=== PATIENT | male | born 1960 | race Caucasian/White ===

== ENCOUNTER → 2020-05-02 | Outpatient (CLI) | payer BC ==
--- NOTE | 2020-05-02 16:06 | CT ---
EXAMINATION TYPE: CT abdomen pelvis wo con DATE OF EXAM: 05/02/2020 COMPARISON: None HISTORY: 59-year-old male gross hematuria, kidney stones. R31.0, N20.0 Right lower quadrant pain that has since resolved. Hematuria that has also resolved. CT DLP: 1688 mGycm. Automated exposure control for dose reduction was used. TECHNIQUE: Contiguous axial scanning of the abdomen and pelvis without IV contrast. Coronal and sagit sonia reconstructions performed. FINDINGS: Heart normal size without pericardial effusion. Strandy atelectasis particularly at the left base. No pleural effusion. Noncontrast appearance of the liver, gallbladder, adrenal glands, kidneys, spleen, pancreas show no g ross abnormality. However, there is a 6 mm calcification in the right side of the pelvis that seems to correspond to th e distal right ureter. No dilated small bowel, free fluid, or free air. No mesenteric or retroperitoneal lymphadenopathy. Mild stool burden. No pericolonic inflammatory change. Mild diverticular change at the junction of th e descending and sigmoid colon. No pericolonic inflammatory change. Bladder partially distended. Prostate gland measures 4.9 cm wide. No abnormal fluid collection in the pelvis or pelvic lymphadenopathy. Bones: Mild degenerative changes at the hips. Moderate degenerative disc disease L5-S1 particularly t owards the left secondary to a levoconvex scoliosis centered along the mid lumbar spine. Bone island involving the L2 vertebral body. Facet arthropathy lower lumbar spine. IMPRESSION: 1. A 6 mm distal right ureteral calculus but without any appreciable hydronephrosis to suggest obstr uctive uropathy. Clinically correlate. 2. Mild distal diverticulosis without acute diverticulitis. 3. Prostatomegaly at 4.9 cm wide. 4. Levoconvex scoliosis along the mid lumbar spine.
== END | disposition home or self-care (01) ==
LOC: RADCTMAIN 15:25
PROVIDERS: ATTEND Family Medicine
DX: N20.0 Calculus of kidney (principal); K57.90 Diverticulosis of intestine, part unspecified, without perforation or abscess without bleeding; N40.0 Benign prostatic hyperplasia without lower urinary tract symptoms
CPT/HCPCS: 74176

== ENCOUNTER 2020-06-04 09:41 | Day surgery (SDC) | payer BC ==
[2020-05-30 15:54] VITALS: BMI 30.8
[~2020-06-04 09:41] MED LIST: LACTATED RINGERS 1,000 ML IV SCH
[2020-06-04] MEDS ORDERED: LACTATED RINGERS 1,000 ML IV ONE (09:53)
[2020-06-04] MEDS ORDERED: LIDOCAINE 1% (10MG/ML) FOR IV START INTRADERMA ONE (09:53)
[2020-06-04 10:08] VITALS: TEMP 98.1
[2020-06-04 10:08] LABS: Glucose,Whole Blood 97 mg/dL (75-99)
[2020-06-04] MEDS ORDERED: PROPOFOL 10 MG/ML 20 ML VIAL IV ONE (11:01)
[2020-06-04] MEDS ORDERED: LIDOCAINE 1% INJ 10MG/ML (20 ML MDV) ONE (11:01)
--- NOTE | 2020-06-04 11:20 | P.PCN ---
Date of Procedure: 06/04/20 Procedure(s) Performed: BRIEF HISTORY: Patient is a 59-year-old [id number] scheduled for an elective colonoscopy as a part of screening for colorectal neoplasia. of PROCEDURE PERFORMED: Colonoscopy. PREOPERATIVE DIAGNOSIS: Screening for colon cancer. IV sedation per Anesthesia. PROCEDURE: After informed consent was obtained, the patient, was brought into the endoscopy unit. IV sedation was administered by Anesthesia under continuous monitoring. Digital rectal examination was normal. Initially the Olympus CF-160 flexible video colonoscope was then inserted in the rectum, gradually advanced into the cecum without any difficulty. Careful examination was performed as the scope was gradually being withdrawn. Ileocecal valve and the appendiceal orifice were visualized and appeared normal. Prep was excellent. Mucosa of the cecum, ascending colon, transverse colon, descending colon, sigmoid colon, and rectum appeared normal. Scattered sigmoid diverticulosis. Retroflexion was performed in the rectum and no lesions were seen. The patient tolerated the procedure well. IMPRESSION: Normal-appearing colon from rectum to cecum with no evidence of colorectal neoplasia Scattered sigmoid diverticulosis. RECOMMENDATIONS: Findings of this examination were discussed with the patient as well as his family. She was advised to have a repeat screening colonoscopy in 10 years.
[2020-06-04 11:49] VITALS: RESP 16
[2020-06-04 11:51] VITALS: BP 118/77; PULSE 68
== END 2020-06-04 12:20 | disposition home or self-care (01) ==
LOC: ORWHC2ENDO 09:41
PROVIDERS: ATTEND Internal Medicine Gastroenterology
DX: Z12.11 Encounter for screening for malignant neoplasm of colon (principal); K57.30 Diverticulosis of large intestine without perforation or abscess without bleeding
CPT/HCPCS: G0121; J2001; J2704; 45378

== ENCOUNTER 2021-09-21 20:04 | Inpatient (IN) | payer BC ==
[2021-09-21] MEDS ORDERED: IPRATROPIUM-ALBUTEROL 3 ML NEB INHALATION STA (21:50)
[2021-09-21] MEDS ORDERED: methylPREDNISolone SOD SUCCI 125 MG/2 ML VIAL IV STA (21:52)
[2021-09-21] MEDS ORDERED: SODIUM CHLORIDE 0.9% 500 ML 500 ML IV STA (21:56)
--- NOTE | 2021-09-21 21:56 | ED ---
General Adult HPI - General Chief complaint: Shortness of Breath Stated complaint: COVID +, SOB Time Seen by Provider: 09/21/21 21:41 Source: patient, family, RN notes reviewed, old records reviewed Mode of arrival: ambulatory Limitations: no limitations - History of Present Illness Initial comments: This is a well-appearing 61-year-old male patient presents to the emergency room with shortness of breath, cough, fever and body aches. He states that the symptoms started on Tuesday, he tested positive for Covid on the . He states that he has been progressively getting worse and they've been monitoring his oxygen saturation at home and it has been in the 80s. He did get the vaccine on September 07. -: days(s) (6) Location: chest Severity scale (1-10): 5 Quality: other (tight) Consistency: constant Improves with: none Worsens with: none Associated Symptoms: cough, fever/chills, shortness of breath, other (body aches) Treatments Prior to Arrival: NSAID, other (tylenol) - Related Data Home Medications Medication Instructions Recorded Confirmed No Known Home Medications 05/30/20 05/30/20 Allergies Allergy/AdvReac Type Severity Reaction Status Date / Time No Known Allergies Allergy Verified 05/30/20 15:29 Review of Systems ROS Statement: Those systems with pertinent positive or pertinent negative responses have been documented in the HPI. ROS Other: All systems not noted in ROS Statement are negative. Past Medical History Additional Past Medical History / Comment(s): herniated discs, kidney stones, ? sleep apnea , states dr monitoring for diabetes. History of Any Multi-Drug Resistant Organisms: None Reported Past Surgical History: Appendectomy Additional Past Surgical History / Comment(s): left ear tube (1999) Past Anesthesia/Blood Transfusion Reactions: No Reported Reaction Past Psychological History: No Psychological Hx Reported Smoking Status: Former smoker Past Alcohol Use History: Occasional Past Drug Use History: None Reported - Past Family History Mother Family Medical History: Cancer Additional Family Medical History / Comment(s): ?lung cancer with mets General Exam Limitations: no limitations General appearance: alert, in no apparent distress Head exam: Present: atraumatic, normocephalic, normal inspection Eye exam: Present: normal appearance, PERRL, EOMI. Absent: scleral icterus, conjunctival injection, periorbital swelling ENT exam: Present: normal exam, normal oropharynx, mucous membranes moist Neck exam: Present: normal inspection, full ROM. Absent: tenderness, meningismus, lymphadenopathy, thyromegaly Respiratory exam: Present: wheezes, rales. Absent: respiratory distress, stridor, chest wall tenderness, accessory muscle use, decreased breath sounds Cardiovascular Exam: Present: tachycardia, normal heart sounds. Absent: JVD GI/Abdominal exam: Present: soft, normal bowel sounds. Absent: distended, tenderness, guarding, rebound, rigid Back exam: Present: full ROM. Absent: tenderness, CVA tenderness (R), CVA tenderness (L) Neurological exam: Present: alert, oriented X3, normal gait Psychiatric exam: Present: normal affect, normal mood Skin exam: Present: warm, dry, intact, normal color. Absent: rash, cyanosis, diaphoretic, petechiae, pallor Course Vital Signs 09/21/21 09/21/21 09/21/21 21:26 21:55 21:57 Temperature 100.5 F H Pulse Rate 105 H 99 Respiratory 22 18 18 Rate Blood Pressure 126/76 135/84 O2 Sat by Pulse 89 L 86 L Oximetry Medical Decision Making - Medical Decision Making This is a 61-year-old male patient presents to the emergency room with shortness of breath cough and fevers with body aches that started on Tuesday. He tested positive for Covid on . He did get a vaccine on September 07. His states that she has been monitoring his oxygen saturations at home and it is been in the 80s. Today he stated it was significantly worse so she brought him to the emergency room. Patient states that he was a smoker for 25 years and quit in 2007. He has no other medical history does not take any medicine on a daily basis. Chest x-ray shows patchy bilateral interstitial pneumonia consistent with coronavirus. There is no evidence of leukocytosis. His troponin is negative at 0.012, EKG shows sinus rhythm with no ST elevation. Patient was given monoclonal antibody infusion. He was also given SoluMedrol and a DuoNeb treatment. He was placed on nasal cannula oxygen at 3 L and his oxygen saturation is increased to 90-93% His d-dimer is elevated at 5.39 and a CTA chest was ordered. His sodium is 130. Patient will be admitted to the hospital for hypoxia, elevated d-dimer, coronavirus. I did speak with Karin Tobar regarding admission. Case discussed with Dr. Sarah and patient will be started on Lovenox 1 mg/kg and Decadron. - Lab Data Result diagrams: 09/21/21 22:30 09/21/21 22:30 Lab Results 09/21/21 09/21/21 09/21/21 Range/Units 22:30 22:30 22:30 WBC 6.6 (3.8-10.6) k/uL RBC 5.04 (4.30-5.90) m/uL Hgb 15.4 (13.0-17.5) gm/dL Hct 45.4 (39.0-53.0) % MCV 90.0 (80.0-100.0) fL MCH 30.6 (25.0-35.0) pg MCHC 34.0 (31.0-37.0) g/dL RDW 12.7 (11.5-15.5) % Plt Count 133 L (150-450) k/uL MPV 8.2 Neutrophils % 88 % Lymphocytes % 7 % Monocytes % 3 % Eosinophils % 0 % Basophils % 0 % Neutrophils # 5.8 (1.3-7.7) k/uL Lymphocytes # 0.5 L (1.0-4.8) k/uL Monocytes # 0.2 (0-1.0) k/uL Eosinophils # 0.0 (0-0.7) k/uL Basophils # 0.0 (0-0.2) k/uL PT 9.7 (9.0-12.0) sec INR 0.9 (<1.2) APTT 27.3 (22.0-30.0) sec D-Dimer 5.39 H (<0.60) mg/L FEU Sodium 130 L (137-145) mmol/L Potassium 4.0 (3.5-5.1) mmol/L Chloride 98 (98-107) mmol/L Carbon Dioxide 26 (22-30) mmol/L Anion Gap 6 mmol/L BUN 16 (9-20) mg/dL Creatinine 0.74 (0.66-1.25) mg/dL Est GFR (CKD-EPI)AfAm >90 (>60 ml/min/1.73 sqM) Est GFR (CKD-EPI)NonAf >90 (>60 ml/min/1.73 sqM) Glucose 162 H (74-99) mg/dL Plasma Lactic Acid Jose Luis (0.7-2.0) mmol/L Calcium 9.1 (8.4-10.2) mg/dL Magnesium 1.8 (1.6-2.3) mg/dL Total Bilirubin 0.4 (0.2-1.3) mg/dL AST 72 H (17-59) U/L ALT 45 (4-49) U/L Alkaline Phosphatase 67 (38-126) U/L Troponin I (0.000-0.034) ng/mL Total Protein 5.8 L (6.3-8.2) g/dL Albumin 3.1 L (3.5-5.0) g/dL 09/21/21 09/21/21 Range/Units 22:30 22:30 WBC (3.8-10.6) k/uL RBC (4.30-5.90) m/uL Hgb (13.0-17.5) gm/dL Hct (39.0-53.0) % MCV (80.0-100.0) fL MCH (25.0-35.0) pg MCHC (31.0-37.0) g/dL RDW (11.5-15.5) % Plt Count (150-450) k/uL MPV Neutrophils % % Lymphocytes % % Monocytes % % Eosinophils % % Basophils % % Neutrophils # (1.3-7.7) k/uL Lymphocytes # (1.0-4.8) k/uL Monocytes # (0-1.0) k/uL Eosinophils # (0-0.7) k/uL Basophils # (0-0.2) k/uL PT (9.0-12.0) sec INR (<1.2) APTT (22.0-30.0) sec D-Dimer (<0.60) mg/L FEU Sodium (137-145) mmol/L Potassium (3.5-5.1) mmol/L Chloride (98-107) mmol/L Carbon Dioxide (22-30) mmol/L Anion Gap mmol/L BUN (9-20) mg/dL Creatinine (0.66-1.25) mg/dL Est GFR (CKD-EPI)AfAm (>60 ml/min/1.73 sqM) Est GFR (CKD-EPI)NonAf (>60 ml/min/1.73 sqM) Glucose (74-99) mg/dL Plasma Lactic Acid Jose Luis 1.2 (0.7-2.0) mmol/L Calcium (8.4-10.2) mg/dL Magnesium (1.6-2.3) mg/dL Total Bilirubin (0.2-1.3) mg/dL AST (17-59) U/L ALT (4-49) U/L Alkaline Phosphatase (38-126) U/L Troponin I <0.012 (0.000-0.034) ng/mL Total Protein (6.3-8.2) g/dL Albumin (3.5-5.0) g/dL Disposition Clinical Impression: Hypoxia, COVID-19, Elevated d-dimer Disposition: ADMITTED IP TO THIS HOSP Condition: Fair Referrals: Jacy Farah III, MD [Primary Care Provider] - 1-2 days Decision Date: 09/22/21 Decision Time: 00:36
[2021-09-21] MEDS ORDERED: SODIUM CHLORIDE 0.9% 50 ML IVPB ONE (22:00)
--- NOTE | 2021-09-21 22:00 | XR ---
EXAMINATION TYPE: XR chest 2V DATE OF EXAM: 09/21/2021 COMPARISON: NONE HISTORY: Pneumonia TECHNIQUE: 2 views FINDINGS: There is coarse interstitial infiltrate in both lungs. There is some mild atelectasis at th e lung bases. Heart size is normal. Mediastinum is normal. Bony thorax is intact. IMPRESSION: Patchy bilateral interstitial pneumonia.
[2021-09-21] MEDS ORDERED: BAMLANIVIMAB (EUA) 700 MG, ETESEVIMAB (EUA) 1,400 MG in SODIUM CHLORIDE 0.9% 50 ML IVPB ONE (22:30)
[2021-09-21 23:03] LABS: Basophils % (A) 0 %; Eosinophils % (A) 0 %; HCT 45.4 % (39.0-53.0); HGB 15.4 gm/dL (13.0-17.5); Lymphocytes # (A) 0.5 k/uL (1.0-4.8); Lymphocytes % (A) 7 %; MCH 30.6 pg (25.0-35.0); Mean Platelet Volume 8.2; Monocytes # (A) 0.2 k/uL (0-1.0); Monocytes % (A) 3 %; Neutrophils # (A) 5.8 k/uL (1.3-7.7); Neutrophils % (A) 88 %; Platelet Count 133 k/uL (150-450); RBC 5.04 m/uL (4.30-5.90); RDW 12.7 % (11.5-15.5); WBC 6.6 k/uL (3.8-10.6)
[2021-09-21 23:12] LABS: ALT 45 U/L (4-49); AST 72 U/L (17-59); African American GFR (CKD) >90 (>60 ml/min/1.73 sqM); Albumin 3.1 g/dL (3.5-5.0); Alkaline Phosphatase 67 U/L (38-126); Anion Gap 6 mmol/L; Blood Urea Nitrogen 16 mg/dL (9-20); Calcium 9.1 mg/dL (8.4-10.2); Carbon Dioxide 26 mmol/L (22-30); Chloride 98 mmol/L (98-107); Glucose 162 mg/dL (74-99); Magnesium 1.8 mg/dL (1.6-2.3); Non-African American GFR(CKD) >90 (>60 ml/min/1.73 sqM); Sodium 130 mmol/L (137-145); Total Bilirubin 0.4 mg/dL (0.2-1.3); Total Protein 5.8 g/dL (6.3-8.2)
[2021-09-21 23:23] LABS: INR 0.9 (<1.2); Partial Thromboplastin Time 27.3 sec (22.0-30.0); Prothrombin Time 9.7 sec (9.0-12.0)
[2021-09-21] MEDS ORDERED: ALBUTEROL HFA INHALER INHALATION STA (23:51)
[2021-09-22] MEDS ORDERED: ACETAMINOPHEN TAB 325 MG TAB PO PRN (00:37)
[2021-09-22] MEDS ORDERED: NALOXONE 0.4 MG/ML 1 ML VIAL IV PRN (00:37)
--- NOTE | 2021-09-22 00:51 | CT ---
EXAMINATION TYPE: CT angio chest DATE OF EXAM: 09/22/2021 COMPARISON: None HISTORY: pE CT DLP: 788.2 mGycm Automated exposure control for dose reduction was used. CONTRAST: Performed with IV Contrast, patient injected with 80 mL of Isovue 370. Images obtained from the thoracic inlet to the diaphragm with IV contrast. There are 3-D post process ed images. There is extensive peripheral bilateral groundglass pulmonary interstitial infiltrates. There is no p leural effusion. Heart is top normal in size. There is no pericardial effusion. There is normal contrast opacification of the pulmonary arteries. There are no filling defects. There is some fatty infiltration of the liver. There are no hilar masses. There is paratracheal lymph nodes up to 1 cm. There are multiple bronchial lymph nodes up to 1 cm. Thoracic aorta is intact. There is no aneurysm or dissection. There is intact thoracic spine. There is no compression fracture. The sternum is intact. There is mil d thoracic dextroscoliosis. IMPRESSION: No evidence of pulmonary embolism. bilateral interstitial and airspace pneumonia. Mediastinal and br onchial lymph nodes consistent with inflammatory disease.
[2021-09-22] MEDS: ENOXAPARIN 120 MG/0.8 ML SYRINGE SQ SCH ×2 (00:58→14:15)
[2021-09-22] MEDS ORDERED: ENOXAPARIN 120 MG/0.8 ML SYRINGE SQ SCH (01:00)
[2021-09-22] MEDS: DEXAMETHASONE SOD PHOSPHATE 10 MG/ML 1 ML VIAL IVP SCH ×2 (09:58→22:32)
[2021-09-22] MEDS ORDERED: CALCIUM CARBONATE 500 MG CHEWABLE PO PRN (10:21)
[2021-09-22] MEDS ORDERED: ONDANSETRON 4 MG/2 ML VIAL IVP PRN (10:21)
[2021-09-22] MEDS: CHOLECALCIFEROL 25 MCG (1000 IU) TABLET PO SCH (10:37)
[2021-09-22] MEDS: ZINC SULFATE 220 MG CAP PO SCH (10:37)
[2021-09-22] MEDS: ASCORBIC ACID 500 MG TAB PO SCH (10:37)
[2021-09-22 11:36] LABS: C Reactive Protein 21.3 mg/dL (<1.0)
[2021-09-22 12:55] LABS: Glucose,Whole Blood 174 mg/dL (75-99)
[2021-09-22] MEDS: INSULIN ASPART (NovoLOG) 100 UNIT/ML VIAL SQ SCH ×3 (12:58→22:33)
[2021-09-22] MEDS ORDERED: ALBUTEROL HFA INHALER INHALATION PRN (13:59)
--- NOTE | 2021-09-22 14:04 | P.HPIM ---
History of Present Illness H&P Date: 09/22/21 This is a pleasant 61-year-old male who follows with Dr. Farah. He presents to the after having symptoms of shortness of breath, cough, fever, body aches and chills since last Tuesday. He has been getting significantly worse since, and became hypoxic with a pulse ox in the 80s on room air at home. He tested positive for COVID on the 09/17/21. Patient did receive his first dose of Moderna vaccination on September 07. Patient and at the bedside denying any other positive Covid in the family. Patient's past medical history significant for hernia disc, kidney stones, questionable sleep apnea, prediabetic. Patient is a former smoker, he quit smoking in 2007 and smoked 1 pack per day or less for 25-30 years. He denies any history of COPD and is not using oxygen at home. Patient is not taking any prescribed medications at home and his states that there are no major underlying health conditions. Patient denies any drug use or alcohol use. admission showed white count of 6.6, platelet 133, d-dimer 5.39, sodium 134, glucose 162, ast 72, troponin negative. LDH is 1236 and his CRP is 21.3. Chest x-ray on admission shows patchy bilateral interstitial pneumonia. Chest CTA shows no evidence of pulmonary embolism. Bilateral interstitial and airspace pneumonia. Mediastinal and bronchial lymph nodes consistent with inflammatory disease. Vitals show a temperature of 100.5 on admission, normal sinus rhythm in the 80s, respiratory rate in the 20s, blood pressure 124/84, he is 94% on 5 L nasal cannula. Patient to receive an infusion of Bamlanivimab in the EC. He also received a 1.3 with a bolus. Patient was started on IV Decadron, zinc, Covid vitamins, Lovenox for prophylaxis. We did consult pulmonary due to the hypoxia. REVIEW OF SYSTEMS: CONSTITUTIONAL: Reports fever, fatigue, malaise, generalized weakness and body chills HEENT: No recent visual problems or hearing problems. Denied any sore throat. CARDIOVASCULAR: No chest pain, orthopnea, PND, no palpitations, no syncope. PULMONARY: Reports congested nonproductive cough, consistent GASTROINTESTINAL: No diarrhea, no nausea, no vomiting, no abdominal pain. NEUROLOGICAL: No headaches, no weakness, no numbness. HEMATOLOGICAL: Denies any bleeding or petechiae. GENITOURINARY: Denies any burning micturition, frequency, or urgency. MUSCULOSKELETAL/RHEUMATOLOGICAL: Denies any joint pain, swelling, or any muscle pain. ENDOCRINE: Denies any polyuria or polydipsia. The rest of the 14-point review of systems is negative. PHYSICAL EXAMINATION: GENERAL: The patient is alert and oriented x3, not in any acute distress. Well developed, well nourished. HEENT: Pupils are round and equally reacting to light. EOMI. No scleral icterus. No conjunctival pallor. Normocephalic, atraumatic. No pharyngeal erythema. No thyromegaly. CARDIOVASCULAR: S1 and S2 present. No murmurs, rubs, or gallops. PULMONARY: Diffuse coarse rhonchi throughout bilateral lung ibarra ABDOMEN: Soft, nontender, nondistended, normoactive bowel sounds. No palpable organomegaly. MUSCULOSKELETAL: No joint swelling or deformity. EXTREMITIES: No cyanosis, clubbing, or pedal edema. NEUROLOGICAL: Gross neurological examination did not reveal any focal deficits. SKIN: No rashes. Assessment and plan Assessment Acute hypoxic respiratory failure secondary to COVID-19 pneumonia, requiring 5L NC Elevated DD, CTA negative for pulmonary embolism Hyponatremia secondary to poor oral intake and dehydration, improving Fever secondary to COVID pnuemonia Elevated LDH, CRP secondary to inflammation from COVID infection Hyperglycemia with no history of diabetes, probably related to steroids Elevated liver enzymes, monitor trends History of nicotine dependence - 25 to 30 year pack history History of kidney stones GI Prophylaxis: Protonix DVT Prophylaxis: Lovenox FULL CODE Plan Continue Steroids, zinc, and covid vitamins Monitor blood sugars Continue all other supportive care Repeat labs tomorrow Pulmonary consultation Past Medical History Additional Past Medical History / Comment(s): herniated discs, kidney stones, ? sleep apnea , states dr monitoring for diabetes. History of Any Multi-Drug Resistant Organisms: None Reported Past Surgical History: Appendectomy Additional Past Surgical History / Comment(s): left ear tube (1999) Past Anesthesia/Blood Transfusion Reactions: No Reported Reaction Past Psychological History: No Psychological Hx Reported Smoking Status: Former smoker Past Alcohol Use History: Occasional Additional Past Alcohol Use History / Comment(s): quit smoking 2007, smoked 1 ppd or less , smoked 25-30 years. Past Drug Use History: None Reported - Past Family History Mother Family Medical History: Cancer Additional Family Medical History / Comment(s): ?lung cancer with mets Medications and Allergies Home Medications Medication Instructions Recorded Confirmed Type No Known Home Medications 05/30/20 09/22/21 History Allergies Allergy/AdvReac Type Severity Reaction Status Date / Time No Known Allergies Allergy Verified 09/22/21 07:30 Physical Exam Vitals: Vital Signs Temp Pulse Pulse Resp BP BP Pulse Ox 09/22/21 05:00 81 20 94 L 09/22/21 03:51 82 20 124/84 94 L 09/22/21 02:47 86 18 135/84 95 09/22/21 02:00 88 22 94 L 09/22/21 01:00 87 20 136/84 92 L 09/21/21 21:57 18 09/21/21 21:55 99 18 135/84 86 L 09/21/21 21:26 100.5 F H 105 H 22 126/76 89 L Intake and Output 09/21/21 09/22/21 09/22/21 22:59 06:59 14:59 Other: Weight 120.202 kg 120.202 kg Results CBC & Chem 7: 09/21/21 22:30 09/22/21 09:44 Labs: Abnormal Lab Results - Last 24 Hours (Table) 09/21/21 09/21/21 09/21/21 Range/Units 22:30 22:30 22:30 Plt Count 133 L (150-450) k/uL Lymphocytes # 0.5 L (1.0-4.8) k/uL D-Dimer 5.39 H (<0.60) mg/L FEU Sodium 130 L (137-145) mmol/L Glucose 162 H (74-99) mg/dL AST 72 H (17-59) U/L Total Protein 5.8 L (6.3-8.2) g/dL Albumin 3.1 L (3.5-5.0) g/dL Thrombosis Risk Factor Assmnt - Choose All That Apply Any of the Below Risk Factors Present?: Yes Each Factor Represents 1 point: Age 41-60 years, Serious lung disease incl. pneumonia (< 1month) Thrombosis Risk Factor Assessment Total Risk Factor Score: 2 Thrombosis Risk Factor Assessment Level: Low Risk Assessment and Plan Time with Patient: Greater than 30
[2021-09-22] MEDS: PANTOPRAZOLE 40 MG/10 ML VIAL IVP SCH ×2 (14:15→22:32)
[2021-09-22] MEDS: SODIUM CHLORIDE 0.9% 1,000 ML IV SCH (14:15)
[2021-09-22] MEDS: ALBUTEROL HFA INHALER INHALATION SCH ×2 (18:24→19:56)
[2021-09-22 18:47] LABS: Glucose,Whole Blood 221 mg/dL (75-99)
[2021-09-22 21:27] LABS: Glucose,Whole Blood 237 mg/dL (75-99)
[2021-09-23] MEDS: ENOXAPARIN 120 MG/0.8 ML SYRINGE SQ SCH (03:40)
[2021-09-23] MEDS: SODIUM CHLORIDE 0.9% 1,000 ML IV SCH ×2 (03:41→16:50)
[2021-09-23 04:52] LABS: Basophils % (A) 0 %; Eosinophils % (A) 0 %; HCT 43.7 % (39.0-53.0); HGB 14.5 gm/dL (13.0-17.5); Lymphocytes # (A) 0.6 k/uL (1.0-4.8); Lymphocytes % (A) 10 %; MCH 30.5 pg (25.0-35.0); MCHC 33.2 g/dL (31.0-37.0); Mean Platelet Volume 7.9; Monocytes # (A) 0.5 k/uL (0-1.0); Monocytes % (A) 7 %; Neutrophils # (A) 5.2 k/uL (1.3-7.7); Neutrophils % (A) 79 %; Platelet Count 196 k/uL (150-450); RBC 4.75 m/uL (4.30-5.90); RDW 12.9 % (11.5-15.5); WBC 6.6 k/uL (3.8-10.6)
[2021-09-23 05:13] LABS: African American GFR (CKD) >90 (>60 ml/min/1.73 sqM); Anion Gap 7 mmol/L; Blood Urea Nitrogen 20 mg/dL (9-20); Calcium 8.5 mg/dL (8.4-10.2); Carbon Dioxide 25 mmol/L (22-30); Chloride 102 mmol/L (98-107); Glucose 230 mg/dL (74-99); Non-African American GFR(CKD) >90 (>60 ml/min/1.73 sqM); Potassium 4.3 mmol/L (3.5-5.1); Sodium 134 mmol/L (137-145)
[2021-09-23 06:58] LABS: Glucose,Whole Blood 212 mg/dL (75-99)
[2021-09-23] MEDS: ALBUTEROL HFA INHALER INHALATION SCH ×4 (07:36→20:57)
[2021-09-23] MEDS: CHOLECALCIFEROL 25 MCG (1000 IU) TABLET PO SCH (08:12)
[2021-09-23] MEDS: ZINC SULFATE 220 MG CAP PO SCH (08:12)
[2021-09-23] MEDS: ASCORBIC ACID 500 MG TAB PO SCH (08:12)
[2021-09-23] MEDS: INSULIN ASPART (NovoLOG) 100 UNIT/ML VIAL SQ SCH ×4 (08:13→21:59)
[2021-09-23] MEDS: PANTOPRAZOLE 40 MG TABLET PO SCH ×2 (08:13→16:49)
[2021-09-23] MEDS: DEXAMETHASONE SOD PHOSPHATE 10 MG/ML 1 ML VIAL IVP SCH (08:13)
[2021-09-23] MEDS: BARICITINIB 2 MG TABLET PO SCH (08:14)
[2021-09-23] MEDS: ENOXAPARIN 40 MG/0.4 ML SYRINGE SQ SCH (08:15)
--- NOTE | 2021-09-23 10:50 | P.CNPUL ---
History of Present Illness Consult date: 09/23/21 Requesting physician: Louise Schultz Reason for consult: dyspnea, cough, chest pain, hypoxemia, pneumonia, abnormal CXR/CT Chief complaint: Shortness of breath, coronavirus associated pneumonia. History of present illness: Pulmonary consult dated 09/23/2021. 61-year-old male, who presents to the emergency department on September 22. He came with complaints of cough, shortness of breath, fever, bodyaches, and generally just not feeling well. He apparently is been having symptoms now for about 8 days. He tested positive on , September 17. Since that time, he's been getting progressively worse, and apparently he's been monitoring his oxygen at home, and his saturations have been in the low to mid 80s. The patient did receive a coronavirus vaccination on September 07. Currently, the patient is on 15 L high flow nasal cannula. His saturations are in the mid 80s. We asked the respiratory therapist to place a nonrebreather mask. The patient is not receiving any IV fluids. We recommended Lovenox, Decadron, vitamins, and KATHY. White count 6.6, hemoglobin 14.5, hematocrit 43.7, and platelet count 196,000. Sodium 134, potassium 4.3, chlorides 12, CO2 25, anion gap 7, BUN 20, and creatinine 0.7. Chest x-ray showed diffuse bilateral patchy infiltrates. CT angiogram was negative for pulmonary embolism, but did show bilateral interstitial and airspace pneumonia. Review of Systems REVIEW OF SYSTEMS: CONSTITUTIONAL: Weakness, fatigue, bodyaches, and fever. NEUROLOGIC: [ Negative.] HEENT: [ Negative.] CARDIAC: [Negative.] PULMONARY: Shortness of breath, cough, chest congestion. GI: [Negative.] : [Negative.] RHEUMATOLOGIC: [ Negative.] IMMUNOLOGIC: [ Negative.] ENDOCRINE: [Negative. ] DERMATOLOGIC: [Negative.] Past Medical History Additional Past Medical History / Comment(s): herniated discs, kidney stones, ? sleep apnea , states dr monitoring for diabetes. History of Any Multi-Drug Resistant Organisms: None Reported Past Surgical History: Appendectomy Additional Past Surgical History / Comment(s): left ear tube (1999) Past Anesthesia/Blood Transfusion Reactions: No Reported Reaction Past Psychological History: No Psychological Hx Reported Smoking Status: Former smoker Past Alcohol Use History: Occasional Additional Past Alcohol Use History / Comment(s): quit smoking 2007, smoked 1 ppd or less , smoked 25-30 years. Past Drug Use History: None Reported - Past Family History Mother Family Medical History: Cancer Additional Family Medical History / Comment(s): ?lung cancer with mets Medications and Allergies Home Medications Medication Instructions Recorded Confirmed Type No Known Home Medications 05/30/20 09/22/21 History Allergies Allergy/AdvReac Type Severity Reaction Status Date / Time No Known Allergies Allergy Verified 09/22/21 07:30 Physical Exam Osteopathic Statement: *. No significant issues noted on an osteopathic structural exam other than those noted in the History and Physical/Consult. Vitals: Vital Signs Temp Pulse Resp BP Pulse Ox 09/23/21 08:00 20 09/23/21 07:35 97.8 F 93 20 143/76 85 L 09/23/21 03:39 92 L 09/23/21 02:00 98.1 F 88 18 126/75 91 L 09/22/21 22:10 98.7 F 94 18 124/65 90 L 09/22/21 20:00 89 L 09/22/21 14:00 98.6 F 101 H 18 138/89 90 L Intake and Output 09/22/21 09/23/21 09/23/21 22:59 06:59 14:59 Intake Total 900 Output Total 900 Balance -900 900 Intake: Intake, IV Titration 900 Amount Sodium Chloride 0.9% 1, 900 000 ml @ 75 mls/hr IV . [id number] [facility] Rx#:[id number] Output: Urine 900 Other: Voiding Method Urinal # Voids 3 Mild conversational dyspnea. Oriented 3. The patient's currently on 15 L high flow nasal oxygen, and nonrebreather mask. HEENT examination is grossly unremarkable. Neck supple. Full range of motion. No adenopathy thyromegaly or neck vein dis tention. Cardiovascular examination reveals regular rhythm rate. S1-S2 normal. No S3 or S4. No discernible murmur noted. Heart rate 93 bpm. Heart sounds are distant. Lungs reveal coarse bilateral rhonchi. Bibasilar crackles. Breath sounds equal bilaterally. No wheezes. Saturations are in the low 90s, on the combination of 15 L high flow nasal cannula and a nonrebreather mask. Abdomen soft bowel sounds are heard. No masses or tenderness. Extremities are intact. No cyanosis clubbing or edema. Skin is without rash or lesion. Neurologic examination is brief but nonfocal. Results - Laboratory Findings CBC and BMP: 09/23/21 04:13 09/23/21 04:13 PT/INR, D-dimer PT 9.7 sec (9.0-12.0) 09/21/21 22:30 INR 0.9 (<1.2) 09/21/21 22:30 D-Dimer 5.39 mg/L FEU (<0.60) H 09/21/21 22:30 Abnormal lab findings: Abnormal Labs 09/21/21 09/21/21 09/21/21 22:30 22:30 22:30 Plt Count 133 L Lymphocytes # 0.5 L D-Dimer 5.39 H Sodium 130 L Glucose 162 H POC Glucose (mg/dL) Hemoglobin A1c AST 72 H Lactate Dehydrogenase C-Reactive Protein Total Protein 5.8 L Albumin 3.1 L Procalcitonin 09/22/21 09/22/21 09/22/21 09:44 09:44 09:44 Plt Count Lymphocytes # D-Dimer Sodium 134 L Glucose POC Glucose (mg/dL) Hemoglobin A1c 6.5 H AST Lactate Dehydrogenase 1236 H C-Reactive Protein 21.3 H Total Protein Albumin Procalcitonin 09/22/21 09/22/21 09/22/21 09:44 12:53 18:45 Plt Count Lymphocytes # D-Dimer Sodium Glucose POC Glucose (mg/dL) 174 H 221 H Hemoglobin A1c AST Lactate Dehydrogenase C-Reactive Protein Total Protein Albumin Procalcitonin 0.46 H 09/22/21 09/23/21 09/23/21 21:26 04:13 04:13 Plt Count Lymphocytes # 0.6 L D-Dimer Sodium 134 L Glucose 230 H POC Glucose (mg/dL) 237 H Hemoglobin A1c AST Lactate Dehydrogenase C-Reactive Protein Total Protein Albumin Procalcitonin 09/23/21 06:55 Plt Count Lymphocytes # D-Dimer Sodium Glucose POC Glucose (mg/dL) 212 H Hemoglobin A1c AST Lactate Dehydrogenase C-Reactive Protein Total Protein Albumin Procalcitonin - Diagnostic Findings Chest x-ray: image reviewed CT scan - chest: image reviewed Assessment and Plan Assessment: Acute hypoxemic respiratory failure secondary to coronavirus associated pneumonia. No evidence of pulmonary embolism on CT angiogram. History of degenerative disc disease. History of kidney stones. History of sleep apnea syndrome. Plan: Plan dated 09/23/2021. We recommend the nonrebreather mask in association with a high flow nasal cannula. In addition, we recommend Lovenox, 40 mg subcu daily, Decadron 6 mg daily, vitamin C, vitamin D3, and zinc, as well as KATHY. We also recommend an albuterol inhaler. The patient's prognosis is guarded. The patient should be admitted to inpatient bed. We did let the nurse know that. In addition, we asked the respiratory therapist to place a nonrebreather mask on the patient as well as the high flow nasal O2. Time with Patient: Greater than 30
[2021-09-23 11:18] LABS: Glucose,Whole Blood 229 mg/dL (75-99)
--- NOTE | 2021-09-23 14:30 | P.PN ---
Subjective Progress Note Date: 09/23/21 This is a pleasant 61-year-old male who follows with Dr. Farah. He presents to the [facility] after having symptoms of shortness of breath, cough, fever, body aches and chills since last Tuesday. He has been getting significantly worse since, and became hypoxic with a pulse ox in the 80s on room air at home. He tested positive for COVID on the 09/17/21. Patient did receive his first dose of Moderna vaccination on September 07. Patient and at the bedside denying any other positive Covid in the family. Patient's past medical history significant for hernia disc, kidney stones, questionable sleep apnea, prediabetic. Patient is a former smoker, he quit smoking in 2007 and smoked 1 pack per day or less for 25-30 years. He denies any history of COPD and is not using oxygen at home. Patient is not taking any prescribed medications at home and his states that there are no major underlying health conditions. Patient denies any drug use or alcohol use. admission showed white count of 6.6, platelet 133, d-dimer 5.39, sodium 134, glucose 162, ast 72, troponin negative. LDH is 1236 and his CRP is 21.3. Chest x-ray on admission shows patchy bilateral interstitial pneumonia. Chest CTA shows no evidence of pulmonary embolism. Bilateral interstitial and airspace pneumonia. Mediastinal and bronchial lymph nodes consistent with inflammatory disease. Vitals show a temperature of 100.5 on admission, normal sinus rhythm in the 80s, respiratory rate in the 20s, blood pressure 124/84, he is 94% on 5 L nasal cannula. Patient to receive an infusion of Bamlanivimab in the EC. He also received a 1.3 with a bolus. Patient was started on IV Decadron, zinc, Covid vitamins, Lovenox for prophylaxis. We did consult pulmonary due to the hypoxia. 09/23/2021 Patient throughout the evening desatted on 4-6L NC and is now on a 15L Non- rebreather. He is having some shortness of breath and difficulty taking a deep breath. He denies any pain, nausea, vomiting, or diarrhea. A1C came back at 6.5, and sugars are in the 200's, continue with the novolog as patient is on Decadron. He may need need insulin on discharge. Labs today show a unremarkable blood count panel, sodium 134. Vitals include temperature 97.7, heart rate 98, blood pressure 154/88 and he is 93% on 15 L high flow. Pulmonary consultation today, recommending KATHY as well as a nonrebreather in addition to the high flow cannula. Continue to monitor patient closely, prognosis is guarded. ROS Constitutional: Reports fatigue, denies fever/chills Cardio vascular: denied any chest pain, palpitations Gastrointestinal: denied any nausea vomiting, diarrhea, reports decreased appetite Pulmonary: Reports cough, reports shortness of breath at rest and with exertion. Neurologic denied any new focal deficits All inpatient medications were reviewed and appropriate changes in these medications as dictated in the interval history and assessment and plan. PHYSICAL EXAMINATION: GENERAL: The patient is alert and oriented x3, tachypneic, Well developed, well nourished. HEENT: Pupils are round and equally reacting to light. EOMI. No scleral icterus. No conjunctival pallor. Normocephalic, atraumatic. No pharyngeal erythema. No thyromegaly. CARDIOVASCULAR: S1 and S2 present. No murmurs, rubs, or gallops. PULMONARY: Chest is clear to auscultation, no wheezing or crackles. Diminished aeration, lungs are tight. ABDOMEN: Soft, nontender, nondistended, normoactive bowel sounds. No palpable organomegaly. MUSCULOSKELETAL: No joint swelling or deformity. EXTREMITIES: No cyanosis, clubbing, or pedal edema. NEUROLOGICAL: Gross neurological examination did not reveal any focal deficits. SKIN: No rashes. Assessment and Plan Assessment Acute hypoxic respiratory failure secondary to COVID-19 pneumonia, on 15L non-rebreather Elevated DD, CTA negative for pulmonary embolism Hyponatremia secondary to poor oral intake and dehydration, improving Fever secondary to COVID pnuemonia Elevated LDH, CRP secondary to inflammation from COVID infection Hyperglycemia, A1C 6.5, patient is most likely a type 2 diabetic, continue with novolog Elevated liver enzymes, monitor trends History of nicotine dependence - 25 to 30 year pack history History of kidney stones GI Prophylaxis: Protonix DVT Prophylaxis: Lovenox Plan Continue Steroids, zinc, and covid vitamins, KATHY Monitor blood sugars Continue all other supportive care Repeat labs tomorrow Pulmonary consultation Objective - Vital Signs Vital signs: Vital Signs Temp 97.8 F 09/23/21 07:35 Pulse 93 09/23/21 07:35 Resp 20 09/23/21 08:00 BP 143/76 09/23/21 07:35 Pulse Ox 85 L 09/23/21 07:35 Intake & Output 09/22/21 09/23/21 09/23/21 18:59 06:59 18:59 Intake Total 900 Output Total 900 Balance -900 900 Intake: Intake, IV Titration 900 Amount Sodium Chloride 0.9% 1, 900 000 ml @ 75 mls/hr IV . [id number] [facility] Rx#:[id number] Output: Urine 900 Other: Voiding Method Urinal # Voids 3 - Labs CBC & Chem 7: 09/23/21 04:13 09/23/21 04:13 Labs: Abnormal Lab Results - Last 24 Hours (Table) 09/22/21 09/22/21 09/22/21 Range/Units 09:44 09:44 09:44 Lymphocytes # (1.0-4.8) k/uL Sodium (137-145) mmol/L Glucose (74-99) mg/dL POC Glucose (mg/dL) (75-99) mg/dL Hemoglobin A1c 6.5 H (4.0-6.0) % Lactate Dehydrogenase 1236 H (313-618) U/L C-Reactive Protein 21.3 H (<1.0) mg/dL Procalcitonin 0.46 H (0.02-0.09) ng/mL 09/22/21 09/22/21 09/22/21 Range/Units 12:53 18:45 21:26 Lymphocytes # (1.0-4.8) k/uL Sodium (137-145) mmol/L Glucose (74-99) mg/dL POC Glucose (mg/dL) 174 H 221 H 237 H (75-99) mg/dL Hemoglobin A1c (4.0-6.0) % Lactate Dehydrogenase (313-618) U/L C-Reactive Protein (<1.0) mg/dL Procalcitonin (0.02-0.09) ng/mL 09/23/21 09/23/21 09/23/21 Range/Units 04:13 04:13 06:55 Lymphocytes # 0.6 L (1.0-4.8) k/uL Sodium 134 L (137-145) mmol/L Glucose 230 H (74-99) mg/dL POC Glucose (mg/dL) 212 H (75-99) mg/dL Hemoglobin A1c (4.0-6.0) % Lactate Dehydrogenase (313-618) U/L C-Reactive Protein (<1.0) mg/dL Procalcitonin (0.02-0.09) ng/mL Assessment and Plan Time with Patient: Greater than 30
[2021-09-23 16:35] LABS: Glucose,Whole Blood 172 mg/dL (75-99)
[2021-09-23 20:09] LABS: Glucose,Whole Blood 178 mg/dL (75-99)
[2021-09-24 06:12] LABS: Glucose,Whole Blood 161 mg/dL (75-99)
[2021-09-24] MEDS: PANTOPRAZOLE 40 MG TABLET PO SCH ×2 (06:55→17:17)
[2021-09-24] MEDS: INSULIN ASPART (NovoLOG) 100 UNIT/ML VIAL SQ SCH ×4 (06:55→20:36)
[2021-09-24] MEDS: SODIUM CHLORIDE 0.9% 1,000 ML IV SCH ×2 (06:56→20:29)
--- NOTE | 2021-09-24 08:42 | XR ---
EXAMINATION TYPE: XR chest 1V portable DATE OF EXAM: 09/24/2021 CLINICAL HISTORY: Difficulty breathing and covid progress study. TECHNIQUE: Single AP portable upright view of the chest is obtained. COMPARISON: Chest x-ray from 3 days earlier. CTA chest 2 days earlier. FINDINGS: Persistent bilateral multifocal and confluent opacities on background low lung volumes gre atest in the left versus right lung and mid to lower lungs. Cardiac silhouette size is stable and wit hin normal limits. Osseous structures are intact. IMPRESSION: Low lung volumes with bilateral multifocal and confluent left greater than right opacitie s consistent with known covid-19 infection are more prominent from prior studies consistent with infe ction progression
[2021-09-24] MEDS: BARICITINIB 2 MG TABLET PO SCH (09:11)
[2021-09-24] MEDS: ENOXAPARIN 40 MG/0.4 ML SYRINGE SQ SCH (09:11)
[2021-09-24] MEDS: ASCORBIC ACID 500 MG TAB PO SCH (09:11)
[2021-09-24] MEDS: ZINC SULFATE 220 MG CAP PO SCH (09:12)
[2021-09-24] MEDS: DEXAMETHASONE SOD PHOSPHATE 10 MG/ML 1 ML VIAL IVP SCH (09:12)
[2021-09-24] MEDS: CHOLECALCIFEROL 25 MCG (1000 IU) TABLET PO SCH (09:12)
[2021-09-24] MEDS: ALBUTEROL HFA INHALER INHALATION SCH ×4 (09:40→20:48)
[2021-09-24 10:32] LABS: Basophils # (A) 0.1 k/uL (0-0.2); Basophils % (A) 1 %; Eosinophils % (A) 0 %; HCT 45.3 % (39.0-53.0); HGB 15.2 gm/dL (13.0-17.5); Lymphocytes # (A) 0.9 k/uL (1.0-4.8); Lymphocytes % (A) 9 %; MCH 30.3 pg (25.0-35.0); MCHC 33.5 g/dL (31.0-37.0); MCV 90.5 fL (80.0-100.0); Monocytes % (A) 10 %; Neutrophils # (A) 8.4 k/uL (1.3-7.7); Neutrophils % (A) 77 %; Platelet Count 254 k/uL (150-450); RDW 12.8 % (11.5-15.5); WBC 10.9 k/uL (3.8-10.6)
[2021-09-24 11:16] LABS: ALT 118 U/L (4-49); AST 132 U/L (17-59); African American GFR (CKD) >90 (>60 ml/min/1.73 sqM); Albumin 3.2 g/dL (3.5-5.0); Alkaline Phosphatase 70 U/L (38-126); Anion Gap 7 mmol/L; Blood Urea Nitrogen 24 mg/dL (9-20); Calcium 8.7 mg/dL (8.4-10.2); Carbon Dioxide 25 mmol/L (22-30); Chloride 107 mmol/L (98-107); Glucose 154 mg/dL (74-99); Non-African American GFR(CKD) >90 (>60 ml/min/1.73 sqM); Potassium 4.2 mmol/L (3.5-5.1); Sodium 139 mmol/L (137-145); Total Bilirubin 0.6 mg/dL (0.2-1.3); Total Protein 6.1 g/dL (6.3-8.2)
--- NOTE | 2021-09-24 11:26 | P.PN ---
Subjective Progress Note Date: 09/24/21 This is a pleasant 61-year-old male who follows with Dr. Farah. He presents to the EC after having symptoms of shortness of breath, cough, fever, body aches and chills since last Tuesday. He has been getting significantly worse since, and became hypoxic with a pulse ox in the 80s on room air at home. He tested positive for COVID on the 09/17/21. Patient did receive his first dose of Moderna vaccination on September 07. Patient and at the bedside denying any other positive Covid in the family. Patient's past medical history significant for hernia disc, kidney stones, questionable sleep apnea, prediabetic. Patient is a former smoker, he quit smoking in 2007 and smoked 1 pack per day or less for 25-30 years. He denies any history of COPD and is not using oxygen at home. Patient is not taking any prescribed medications at home and his states that there are no major underlying health conditions. Patient denies any drug use or alcohol use. admission showed white count of 6.6, platelet 133, d-dimer 5.39, sodium 134, glucose 162, ast 72, troponin negative. LDH is 1236 and his CRP is 21.3. Chest x-ray on admission shows patchy bilateral interstitial pneumonia. Chest CTA shows no evidence of pulmonary embolism. Bilateral interstitial and airspace pneumonia. Mediastinal and bronchial lymph nodes consistent with inflammatory disease. Vitals show a temperature of 100.5 on admission, normal sinus rhythm in the 80s, respiratory rate in the 20s, blood pressure 124/84, he is 94% on 5 L nasal cannula. Patient to receive an infusion of Bamlanivimab in the EC. He also received a 1.3 with a bolus. Patient was started on IV Decadron, zinc, Covid vitamins, Lovenox for prophylaxis. We did consult pulmonary due to the hypoxia. 09/23/2021 Patient throughout the evening desatted on 4-6L NC and is now on a 15L Non- rebreather. He is having some shortness of breath and difficulty taking a deep breath. He denies any pain, nausea, vomiting, or diarrhea. A1C came back at 6.5, and sugars are in the 200's, continue with the novolog as patient is on Decadron. He may need need insulin on discharge. Labs today show a unremarkable blood count panel, sodium 134. Vitals include temperature 97.7, heart rate 98, blood pressure 154/88 and he is 93% on 15 L high flow. Pulmonary consultation today, recommending KATHY as well as a nonrebreather in addition to the high flow cannula. Continue to monitor patient closely, prognosis is guarded. 09/24/2021 Patient is evaluated today resting that. He is on a 15 L high flow cannula as well as a 15 L nonrebreather. Patient is a slightly having some shortness of breath and difficulty taking a deep breath. He is currently denying any chest pain, chest pressure, nausea vomiting or diarrhea. He does have pain with deep inspiration and expiration. Patient is being followed closely by pulmonary services. Labs today show white count 10.9, d-dimer of 2 today, LDH 1677 and CRP of 3. Metabolic panel pending from today. Patient's oxygen saturation is 97%, blood pressure 134/84, heart rate 84 and he is afebrile. ROS Constitutional: Reports fatigue, denies fever/chills Cardio vascular: denied any chest pain, palpitations Gastrointestinal: denied any nausea vomiting, diarrhea, reports decreased appetite Pulmonary: Reports cough, reports shortness of breath at rest and with exertion. Neurologic denied any new focal deficits All inpatient medications were reviewed and appropriate changes in these medications as dictated in the interval history and assessment and plan. PHYSICAL EXAMINATION: GENERAL: The patient is alert and oriented x3, tachypneic, Well developed, well nourished. HEENT: Pupils are round and equally reacting to light. EOMI. No scleral icterus. No conjunctival pallor. Normocephalic, atraumatic. No pharyngeal erythema. No thyromegaly. CARDIOVASCULAR: S1 and S2 present. No murmurs, rubs, or gallops. PULMONARY: Chest is clear to auscultation, no wheezing or crackles. Diminished aeration, lungs are tight. ABDOMEN: Soft, nontender, nondistended, normoactive bowel sounds. No palpable organomegaly. MUSCULOSKELETAL: No joint swelling or deformity. EXTREMITIES: No cyanosis, clubbing, or pedal edema. NEUROLOGICAL: Gross neurological examination did not reveal any focal deficits. SKIN: No rashes. Assessment and Plan Assessment Acute hypoxic respiratory failure secondary to COVID-19 pneumonia, on 15L non- rebreather, and 15 L high flow nasal cannula Elevated DD, CTA negative for pulmonary embolism Hyponatremia secondary to poor oral intake and dehydration, improving Fever secondary to COVID pnuemonia Elevated LDH, CRP secondary to inflammation from COVID infection Hyperglycemia, A1C 6.5, patient is most likely a type 2 diabetic, continue with novolog Elevated liver enzymes, monitor History of nicotine dependence - 25 to 30 year pack history History of kidney stones GI Prophylaxis: Protonix DVT Prophylaxis: Lovenox Plan Continue Steroids, zinc, and covid vitamins, KATHY Monitor blood sugars Continue all other supportive care Repeat labs tomorrow Objective - Vital Signs Vital signs: Vital Signs Temp 97.8 F 09/24/21 04:00 Pulse 80 09/24/21 04:00 Resp 22 09/24/21 04:00 BP 120/71 09/24/21 04:00 Pulse Ox 95 09/24/21 04:00 Intake & Output 09/23/21 09/24/21 09/24/21 18:59 06:59 18:59 Intake Total 720 Output Total 475 Balance 245 Weight 120 kg Intake: Oral 720 Output: Urine 475 Other: Voiding Method Urinal # Voids 2 - Labs CBC & Chem 7: 09/24/21 10:02 09/24/21 10:02 Labs: Abnormal Lab Results - Last 24 Hours (Table) 09/23/21 09/23/21 09/23/21 Range/Units 11:16 16:33 20:08 POC Glucose (mg/dL) 229 H 172 H 178 H (75-99) mg/dL 09/24/21 Range/Units 06:09 POC Glucose (mg/dL) 161 H (75-99) mg/dL Assessment and Plan Time with Patient: Greater than 30
[2021-09-24 11:34] LABS: Glucose,Whole Blood 210 mg/dL (75-99)
--- NOTE | 2021-09-24 14:33 | P.PN ---
Subjective Progress Note Date: 09/24/21 Principal diagnosis: Shortness of breath. Pulmonary consult dated 09/23/2021. 61-year-old male, who presents to the emergency department on September 22. He came with complaints of cough, shortness of breath, fever, bodyaches, and generally just not feeling well. He apparently is been having symptoms now for about 8 days. He tested positive on September 17. Since that time, he's been getting progressively worse, and apparently he's been monitoring his oxygen at home, and his saturations have been in the low to mid 80s. The patient did receive a coronavirus vaccination on September 07. Currently, the patient is on 15 L high flow nasal cannula. His saturations are in the mid 80s. We asked the respiratory therapist to place a nonrebreather mask. The patient is not receiving any IV fluids. We recommended Lovenox, Decadron, vitamins, and KATHY. White count 6.6, hemoglobin 14.5, hematocrit 43.7, and platelet count 196,000. Sodium 134, potassium 4.3, chlorides 12, CO2 25, anion gap 7, BUN 20, and creatinine 0.7. Chest x-ray showed diffuse bilateral patchy infiltrates. CT angiogram was negative for pulmonary embolism, but did show bilateral interstitial and airspace pneumonia. Progress note dated 09/24/2021. 61-year-old male, who we saw consultation yesterday. He initially was seen in the emergency department on September 22. He came in with complaints of cough, shortness of breath, fever, 98, and generally just not feeling well. He had sy mptoms for about 8 days prior to his visit in the emergency department. Anyway, the patient is currently on 15 L high flow nasal cannula, and also a nonrebreather mask. He's feeling about the same. The patient's getting saline at [address] angiogram was negative for pulmonary embolism. It did show bilateral pneumonia. White count 10.9, hemoglobin hematocrit and platelet count all normal. D-dimer 2.01. Sodium 139, potassium 4.2, chlorides 107, CO2 25, anion gap 7, BUN 24, and creatinine 0.58. Chest x-ray from the shows bilateral infiltrates, possibly slightly worse than his admission x-ray. Objective - Vital Signs Vital signs: Vital Signs Temp 98.1 F 09/24/21 12:00 Pulse 81 09/24/21 12:00 Resp 22 09/24/21 12:09 BP 134/74 09/24/21 12:00 Pulse Ox 93 L 09/24/21 12:00 Intake & Output 09/23/21 09/24/21 09/24/21 18:59 06:59 18:59 Intake Total 720 380 Output Total 475 Balance 245 380 Weight 120 kg Intake: Oral 720 380 Output: Urine 475 Other: Voiding Method Urinal # Voids 2 - Exam Mild conversational dyspnea. Oriented 3. The patient's currently on 15 L high flow nasal oxygen, and nonrebreather mask. Saturations are 93%. HEENT examination is grossly unremarkable. Neck supple. Full range of motion. No adenopathy thyromegaly or neck vein distention. Cardiovascular examination reveals regular rhythm rate. S1-S2 normal. No S3 or S4. No discernible murmur noted. Heart rate 81 bpm. Heart sounds are distant. Lungs reveal coarse bilateral rhonchi. Bibasilar crackles. Breath sounds equal bilaterally. No wheezes. Abdomen soft bowel sounds are heard. No masses or tenderness. Extremities are intact. No cyanosis clubbing or edema. Skin is without rash or lesion. Neurologic examination is brief but nonfocal. - Labs CBC & Chem 7: 09/24/21 10:02 09/24/21 10:02 Labs: Abnormal Lab Results - Last 24 Hours (Table) 09/23/21 09/23/21 09/24/21 Range/Units 16:33 20:08 06:09 WBC (3.8-10.6) k/uL Neutrophils # (1.3-7.7) k/uL Lymphocytes # (1.0-4.8) k/uL D-Dimer (<0.60) mg/L FEU BUN (9-20) mg/dL Creatinine (0.66-1.25) mg/dL Glucose (74-99) mg/dL POC Glucose (mg/dL) 172 H 178 H 161 H (75-99) mg/dL AST (17-59) U/L ALT (4-49) U/L Lactate Dehydrogenase (313-618) U/L C-Reactive Protein (<1.0) mg/dL Total Protein (6.3-8.2) g/dL Albumin (3.5-5.0) g/dL 09/24/21 09/24/21 09/24/21 Range/Units 10:02 10:02 10:02 WBC 10.9 H (3.8-10.6) k/uL Neutrophils # 8.4 H (1.3-7.7) k/uL Lymphocytes # 0.9 L (1.0-4.8) k/uL D-Dimer 2.01 H (<0.60) mg/L FEU BUN (9-20) mg/dL Creatinine (0.66-1.25) mg/dL Glucose (74-99) mg/dL POC Glucose (mg/dL) (75-99) mg/dL AST (17-59) U/L ALT (4-49) U/L Lactate Dehydrogenase 1677 H (313-618) U/L C-Reactive Protein 3.0 H (<1.0) mg/dL Total Protein (6.3-8.2) g/dL Albumin (3.5-5.0) g/dL 09/24/21 09/24/21 Range/Units 10:02 11:32 WBC (3.8-10.6) k/uL Neutrophils # (1.3-7.7) k/uL Lymphocytes # (1.0-4.8) k/uL D-Dimer (<0.60) mg/L FEU BUN 24 H (9-20) mg/dL Creatinine 0.58 L (0.66-1.25) mg/dL Glucose 154 H (74-99) mg/dL POC Glucose (mg/dL) 210 H (75-99) mg/dL AST 132 H (17-59) U/L ALT 118 H (4-49) U/L Lactate Dehydrogenase (313-618) U/L C-Reactive Protein (<1.0) mg/dL Total Protein 6.1 L (6.3-8.2) g/dL Albumin 3.2 L (3.5-5.0) g/dL Assessment and Plan Assessment: Acute hypoxemic respiratory failure secondary to coronavirus associated pneumonia. No evidence of pulmonary embolism on CT angiogram. History of degenerative disc disease. History of kidney stones. History of sleep apnea syndrome. Plan: Plan dated 09/23/2021. We recommend the nonrebreather mask in association with a high flow nasal cannula. In addition, we recommend Lovenox, 40 mg subcu daily, Decadron 6 mg daily, vitamin C, vitamin D3, and zinc, as well as KATHY. We also recommend an albuterol inhaler. The patient's prognosis is guarded. The patient should be admitted to inpatient bed. We did let the nurse know that. In addition, we asked the respiratory therapist to place a nonrebreather mask on the patient as well as the high flow nasal O2. Plan dated 09/24/2021. T11-year-old male who we saw in consultation yesterday. The patient remains on saline at 75 mL an hour, and both a nonrebreather mask, 15 L high flow nasal cannula. He's feeling about the same as he did yesterday. Remains on Decadron, Lovenox, vitamin C, vitamin D3, and zinc. In addition, he is on KATHY. The olvin ent does understand that his condition may worsen, and he may need transfer to the intensive care unit. Further, he realizes that he may end up on mechanical life support. That has been explained to him. We will continue to follow make recommendations where appropriate. Time with Patient: Less than 30
[2021-09-24 16:27] LABS: Glucose,Whole Blood 195 mg/dL (75-99)
[2021-09-24 20:32] LABS: Glucose,Whole Blood 143 mg/dL (75-99)
[2021-09-25 06:23] LABS: Glucose,Whole Blood 113 mg/dL (75-99)
[2021-09-25] MEDS: INSULIN ASPART (NovoLOG) 100 UNIT/ML VIAL SQ SCH ×4 (06:24→20:45)
[2021-09-25] MEDS: PANTOPRAZOLE 40 MG TABLET PO SCH ×2 (06:27→17:06)
[2021-09-25] MEDS: ALBUTEROL HFA INHALER INHALATION SCH ×4 (07:20→21:00)
[2021-09-25] MEDS: SODIUM CHLORIDE 0.9% 1,000 ML IV SCH ×2 (08:35→20:45)
[2021-09-25] MEDS: ENOXAPARIN 40 MG/0.4 ML SYRINGE SQ SCH (08:47)
[2021-09-25] MEDS: BARICITINIB 2 MG TABLET PO SCH (08:47)
[2021-09-25] MEDS: DEXAMETHASONE SOD PHOSPHATE 10 MG/ML 1 ML VIAL IVP SCH (08:47)
[2021-09-25] MEDS: CHOLECALCIFEROL 25 MCG (1000 IU) TABLET PO SCH (08:47)
[2021-09-25] MEDS: ZINC SULFATE 220 MG CAP PO SCH (08:48)
[2021-09-25] MEDS: ASCORBIC ACID 500 MG TAB PO SCH (08:48)
[2021-09-25 09:51] LABS: Basophils % (A) 0 %; Eosinophils % (A) 0 %; HCT 43.9 % (39.0-53.0); HGB 15.2 gm/dL (13.0-17.5); Lymphocytes # (A) 0.8 k/uL (1.0-4.8); Lymphocytes % (A) 8 %; MCHC 34.6 g/dL (31.0-37.0); MCV 89.6 fL (80.0-100.0); Monocytes # (A) 0.7 k/uL (0-1.0); Monocytes % (A) 7 %; Neutrophils # (A) 8.2 k/uL (1.3-7.7); Neutrophils % (A) 82 %; Platelet Count 298 k/uL (150-450); RDW 13.4 % (11.5-15.5)
[2021-09-25 10:22] LABS: ALT 134 U/L (4-49); AST 115 U/L (17-59); African American GFR (CKD) >90 (>60 ml/min/1.73 sqM); Albumin 3.1 g/dL (3.5-5.0); Alkaline Phosphatase 63 U/L (38-126); Anion Gap 6 mmol/L; Blood Urea Nitrogen 23 mg/dL (9-20); Calcium 8.3 mg/dL (8.4-10.2); Carbon Dioxide 25 mmol/L (22-30); Chloride 105 mmol/L (98-107); Glucose 152 mg/dL (74-99); Non-African American GFR(CKD) >90 (>60 ml/min/1.73 sqM); Potassium 4.1 mmol/L (3.5-5.1); Sodium 136 mmol/L (137-145); Total Bilirubin 0.8 mg/dL (0.2-1.3); Total Protein 5.8 g/dL (6.3-8.2)
[2021-09-25 11:58] LABS: Glucose,Whole Blood 144 mg/dL (75-99)
--- NOTE | 2021-09-25 14:45 | P.PN ---
Subjective Progress Note Date: 09/25/21 Principal diagnosis: Acute hypoxic respiratory failure secondary to COVID-19 pneumonia 61-year-old male who follows with Dr. Farah. He presents to the [facility] after having symptoms of shortness of breath, cough, fever, body aches and chills since last Tuesday. He has been getting significantly worse since, and became hypoxic with a pulse ox in the 80s on room air at home. He tested positive for COVID on the 09/17/21. Patient did receive his first dose of Moderna vaccinati on on September 07. Patient and at the bedside denying any other positive Covid in the family. Patient's past medical history significant for hernia disc, kidney stones, questionable sleep apnea, prediabetic. Patient is a former smoker, he quit smoking in 2007 and smoked 1 pack per day or less for 25-30 years. He denies any history of COPD and is not using oxygen at home. Patient is not taking any prescribed medications at home and his states that there are no major underlying health conditions. Patient denies any drug use or alcohol use. admission showed white count of 6.6, platelet 133, d-dimer 5.39, sodium 134, glucose 162, ast 72, troponin negative. LDH is 1236 and his CRP is 21.3. Chest x-ray on admission shows patchy bilateral interstitial pneumonia. Chest CTA shows no evidence of pulmonary embolism. Bilateral interstitial and airspace pneumonia. Mediastinal and bronchial lymph nodes consistent with inflammatory disease. Vitals show a temperature of 100.5 on admission, normal sinus rhythm in the 80s, respiratory rate in the 20s, blood pressure 124/84, he is 94% on 5 L nasal cannula. Patient to receive an infusion of Bamlanivimab in the [facility]. He also received a 1.3 with a bolus. Patient was started on IV Decadron, zinc, Covid vitamins, Lovenox for prophylaxis. We did consult pulmonary due to the hypoxia. 09/25/2021 Patient is evaluated today resting that. He is on a 15 L high flow cannula as well as a 15 L nonrebreather. Patient is a slightly having some shortness of breath and difficulty taking a deep breath. He is currently denying any chest pain, chest pressure, nausea vomiting or diarrhea. He does have pain with deep inspiration and expiration. Patient is being followed closely by pulmonary services. Labs today show white count 10.9, d-dimer of 2 today, LDH 1677 and CRP of 3. Metabolic panel pending from today. Patient's oxygen saturation is 97% on 15 L; pulse of 89 and temperature 90.7 0.90FNC, blood pressure stable at 134/72. Objective - Vital Signs Vital signs: Vital Signs Temp 97.7 F 09/25/21 08:00 Pulse 74 09/25/21 08:00 Resp 22 09/25/21 08:00 BP 131/76 09/25/21 08:00 Pulse Ox 93 L 09/25/21 08:00 Intake & Output 09/24/21 09/25/21 09/25/21 18:59 06:59 18:59 Intake Total 620 Output Total 650 Balance 620 -650 Weight 118 kg Intake: Oral 620 Output: Urine 650 Other: Voiding Method Urinal # Voids 1 # Bowel Movements 1 - Labs CBC & Chem 7: 09/25/21 09:07 09/25/21 09:07 Labs: Abnormal Lab Results - Last 24 Hours (Table) 09/24/21 09/24/21 09/24/21 Range/Units 10:02 10:02 10:02 WBC 10.9 H (3.8-10.6) k/uL Neutrophils # 8.4 H (1.3-7.7) k/uL Lymphocytes # 0.9 L (1.0-4.8) k/uL D-Dimer 2.01 H (<0.60) mg/L FEU BUN (9-20) mg/dL Creatinine (0.66-1.25) mg/dL Glucose (74-99) mg/dL POC Glucose (mg/dL) (75-99) mg/dL AST (17-59) U/L ALT (4-49) U/L Lactate Dehydrogenase 1677 H (313-618) U/L C-Reactive Protein 3.0 H (<1.0) mg/dL Total Protein (6.3-8.2) g/dL Albumin (3.5-5.0) g/dL 09/24/21 09/24/21 09/24/21 Range/Units 10:02 11:32 16:19 WBC (3.8-10.6) k/uL Neutrophils # (1.3-7.7) k/uL Lymphocytes # (1.0-4.8) k/uL D-Dimer (<0.60) mg/L FEU BUN 24 H (9-20) mg/dL Creatinine 0.58 L (0.66-1.25) mg/dL Glucose 154 H (74-99) mg/dL POC Glucose (mg/dL) 210 H 195 H (75-99) mg/dL AST 132 H (17-59) U/L ALT 118 H (4-49) U/L Lactate Dehydrogenase (313-618) U/L C-Reactive Protein (<1.0) mg/dL Total Protein 6.1 L (6.3-8.2) g/dL Albumin 3.2 L (3.5-5.0) g/dL 09/24/21 09/25/21 09/25/21 Range/Units 20:30 06:22 09:07 WBC (3.8-10.6) k/uL Neutrophils # 8.2 H (1.3-7.7) k/uL Lymphocytes # 0.8 L (1.0-4.8) k/uL D-Dimer (<0.60) mg/L FEU BUN (9-20) mg/dL Creatinine (0.66-1.25) mg/dL Glucose (74-99) mg/dL POC Glucose (mg/dL) 143 H 113 H (75-99) mg/dL AST (17-59) U/L ALT (4-49) U/L Lactate Dehydrogenase (313-618) U/L C-Reactive Protein (<1.0) mg/dL Total Protein (6.3-8.2) g/dL Albumin (3.5-5.0) g/dL Assessment and Plan Assessment: Acute hypoxic respiratory failure secondary to COVID-19 pneumonia, on 15L non- rebreather, and 15 L high flow nasal cannula Elevated DD, CTA negative for pulmonary embolism Hyponatremia secondary to poor oral intake and dehydration, improving Fever secondary to COVID pnuemonia Elevated LDH, CRP secondary to inflammation from COVID infection Hyperglycemia, A1C 6.5, patient is most likely a type 2 diabetic, continue with novolog Elevated liver enzymes, monitor History of nicotine dependence - 25 to 30 year pack history History of kidney stones GI Prophylaxis: Protonix DVT Prophylaxis: Lovenox Plan Continue Steroids, zinc, and covid vitamins, KATHY Monitor blood sugars Continue all other supportive care Repeat labs tomorrow
[2021-09-25 17:07] LABS: Glucose,Whole Blood 187 mg/dL (75-99)
--- NOTE | 2021-09-25 18:18 | P.PN ---
Subjective Progress Note Date: 09/25/21 Principal diagnosis: Shortness of breath. Pulmonary consult dated 09/23/2021. 61-year-old male, who presents to the emergency department on September 22. He came with complaints of cough, shortness of breath, fever, bodyaches, and generally just not feeling well. He apparently is been having symptoms now for about 8 days. He tested positive on September 17. Since that time, he's been getting progressively worse, and apparently he's been monitoring his oxygen at home, and his saturations have been in the low to mid 80s. The patient did receive a coronavirus vaccination on September 07. Currently, the patient is on 15 L high flow nasal cannula. His saturations are in the mid 80s. We asked the respiratory therapist to place a nonrebreather mask. The patient is not receiving any IV fluids. We recommended Lovenox, Decadron, vitamins, and KATHY. White count 6.6, hemoglobin 14.5, hematocrit 43.7, and platelet count 196,000. Sodium 134, potassium 4.3, chlorides 12, CO2 25, anion gap 7, BUN 20, and creatinine 0.7. Chest x-ray showed diffuse bilateral patchy infiltrates. CT angiogram was negative for pulmonary embolism, but did show bilateral interstitial and airspace pneumonia. Progress note dated 09/24/2021. 61-year-old male, who we saw consultation yesterday. He initially was seen in the emergency department on September 22. He came in with complaints of cough, shortness of breath, fever, 98, and generally just not feeling well. He had sy mptoms for about 8 days prior to his visit in the emergency department. Anyway, the patient is currently on 15 L high flow nasal cannula, and also a nonrebreather mask. He's feeling about the same. The patient's getting saline at [address] angiogram was negative for pulmonary embolism. It did show bilateral pneumonia. White count 10.9, hemoglobin hematocrit and platelet count all normal. D-dimer 2.01. Sodium 139, potassium 4.2, chlorides 107, CO2 25, anion gap 7, BUN 24, and creatinine 0.58. Chest x-ray from the shows bilateral infiltrates, possibly slightly worse than his admission x-ray. Progress note dated 09/25/2021. 61-year-old male who was seen in consultation 2 days ago. He presented to the emergency department on the . He came with complaints of cough, shortness of breath, fever, and generally not feeling well. Currently, the patient is on 8:15 they're high flow nasal cannula, and a nonrebreather mass. Is getting saline at [address] angiogram was negative for pulmonary embolism. He was diagnosed with coronavirus associated pneumonia. White count 10, hemoglobin 15.2, hematocrit 43.9, and platelet count 298,000. Sodium 136, potassium 4.1, chlorides 105, CO2 25, anion gap 6, BUN 23, and creatinine 0.64. No chest x-ray today. Objective - Vital Signs Vital signs: Vital Signs Temp 97.7 F 09/25/21 16:00 Pulse 88 09/25/21 16:00 Resp 20 09/25/21 16:00 BP 133/79 09/25/21 16:00 Pulse Ox 97 09/25/21 16:00 Intake & Output 09/24/21 09/25/21 09/25/21 18:59 06:59 18:59 Intake Total 620 Output Total 650 Balance 620 -650 Weight 118 kg Intake: Oral 620 Output: Urine 650 Other: Voiding Method Urinal # Voids 1 # Bowel Movements 1 - Exam Mild conversational dyspnea. Oriented 3. The patient's currently on 15 L high flow nasal oxygen, and nonrebreather mask. Saturations are 97%. HEENT examination is grossly unremarkable. Neck supple. Full range of motion. No adenopathy thyromegaly or neck vein distention. Cardiovascular examination reveals regular rhythm rate. S1-S2 normal. No S3 or S4. No discernible murmur noted. Heart rate 88 bpm. Heart sounds are distant. Lungs reveal coarse bilateral rhonchi. Bibasilar crackles. Breath sounds equal bilaterally. No wheezes. Abdomen soft bowel sounds are heard. No masses or tenderness. Extremities are intact. No cyanosis clubbing or edema. Skin is without rash or lesion. Neurologic examination is brief but nonfocal. - Labs CBC & Chem 7: 09/25/21 09:07 09/25/21 09:07 Labs: Abnormal Lab Results - Last 24 Hours (Table) 09/24/21 09/25/21 09/25/21 Range/Units 20:30 06:22 09:07 Neutrophils # 8.2 H (1.3-7.7) k/uL Lymphocytes # 0.8 L (1.0-4.8) k/uL Sodium (137-145) mmol/L BUN (9-20) mg/dL Creatinine (0.66-1.25) mg/dL Glucose (74-99) mg/dL POC Glucose (mg/dL) 143 H 113 H (75-99) mg/dL Calcium (8.4-10.2) mg/dL AST (17-59) U/L ALT (4-49) U/L Total Protein (6.3-8.2) g/dL Albumin (3.5-5.0) g/dL 09/25/21 09/25/21 09/25/21 Range/Units 09:07 11:54 17:06 Neutrophils # (1.3-7.7) k/uL Lymphocytes # (1.0-4.8) k/uL Sodium 136 L (137-145) mmol/L BUN 23 H (9-20) mg/dL Creatinine 0.64 L (0.66-1.25) mg/dL Glucose 152 H (74-99) mg/dL POC Glucose (mg/dL) 144 H 187 H (75-99) mg/dL Calcium 8.3 L (8.4-10.2) mg/dL AST 115 H (17-59) U/L ALT 134 H (4-49) U/L Total Protein 5.8 L (6.3-8.2) g/dL Albumin 3.1 L (3.5-5.0) g/dL Assessment and Plan Assessment: Acute hypoxemic respiratory failure secondary to coronavirus associated pneumonia. No evidence of pulmonary embolism on CT angiogram. History of degenerative disc disease. History of kidney stones. History of sleep apnea syndrome. Obesity. Plan: Plan dated 09/23/2021. We recommend the nonrebreather mask in association with a high flow nasal cannula. In addition, we recommend Lovenox, 40 mg subcu daily, Decadron 6 mg daily, vitamin C, vitamin D3, and zinc, as well as KATHY. We also recommend an albuterol inhaler. The patient's prognosis is guarded. The patient should be admitted to inpatient bed. We did let the nurse know that. In addition, we asked the respiratory therapist to place a nonrebreather mask on the patient as well as the high flow nasal O2. Plan dated 09/24/2021. T11-year-old male who we saw in consultation yesterday. The patient remains on saline at 75 mL an hour, and both a nonrebreather mask, 15 L high flow nasal cannula. He's feeling about the same as he did yesterday. Remains on Decadron, Lovenox, vitamin C, vitamin D3, and zinc. In addition, he is on KATHY. The patient does understand that his condition may worsen, and he may need transfer to the intensive care unit. Further, he realizes that he may end up on mechanical life support. That has been explained to him. We will continue to follow make recommendations where appropriate. Plan dated 09/25/2021. The patient is again seen today in room 361. He remains on saline at 75 mL an hour, as well as 15 L high flow nasal cannula, and a nonrebreather mask. The patient appears be doing reasonably well. The patient continues on Decadron, Lovenox, vitamin C, vitamin D3, and zinc. In addition, he is on KATHY. The patient feels a bit better today than he did yesterday. He also realizes that he could get worse and ended up in the intensive care unit, on the mechanical breathing machine. We will continue to follow make recommendations where appropriate. Prognosis is guarded. Time with Patient: Less than 30
[2021-09-25 20:41] LABS: Glucose,Whole Blood 136 mg/dL (75-99)
[2021-09-26 06:08] LABS: Glucose,Whole Blood 106 mg/dL (75-99)
[2021-09-26] MEDS: INSULIN ASPART (NovoLOG) 100 UNIT/ML VIAL SQ SCH ×4 (06:09→21:10)
[2021-09-26] MEDS: PANTOPRAZOLE 40 MG TABLET PO SCH ×2 (06:30→17:07)
[2021-09-26] MEDS: ALBUTEROL HFA INHALER INHALATION SCH ×4 (07:26→19:26)
--- NOTE | 2021-09-26 08:19 | XR ---
EXAMINATION TYPE: XR chest 1V portable DATE OF EXAM: 09/26/2021 CLINICAL HISTORY: Difficulty breathing and covid pneumonia progress study. TECHNIQUE: Single AP portable frontal view of the chest is obtained. COMPARISON: Chest x-ray from 2 days earlier and older studies. FINDINGS: Persistent bilateral multifocal and confluent mid to lower lung opacities greatest in the left lung versus right lung. Cardiac silhouette size is stable and within normal limits. Underlying s coliosis is present. IMPRESSION: Persistent Low lung volumes with bilateral multifocal and confluent left greater than rig ht opacities consistent with known covid-19 infection, no significant change from most recent x-ray.
[2021-09-26] MEDS: CHOLECALCIFEROL 25 MCG (1000 IU) TABLET PO SCH (08:40)
[2021-09-26] MEDS: DEXAMETHASONE SOD PHOSPHATE 10 MG/ML 1 ML VIAL IVP SCH (08:40)
[2021-09-26] MEDS: ASCORBIC ACID 500 MG TAB PO SCH (08:41)
[2021-09-26] MEDS: BARICITINIB 2 MG TABLET PO SCH (08:41)
[2021-09-26] MEDS: ENOXAPARIN 40 MG/0.4 ML SYRINGE SQ SCH (08:42)
[2021-09-26] MEDS: ZINC SULFATE 220 MG CAP PO SCH (08:42)
[2021-09-26 08:56] LABS: Basophils % (A) 1 %; Eosinophils % (A) 0 %; HCT 44.5 % (39.0-53.0); HGB 15.4 gm/dL (13.0-17.5); Lymphocytes # (A) 0.7 k/uL (1.0-4.8); Lymphocytes % (A) 10 %; MCH 30.3 pg (25.0-35.0); MCHC 34.5 g/dL (31.0-37.0); MCV 87.8 fL (80.0-100.0); Mean Platelet Volume 7.7; Monocytes # (A) 0.5 k/uL (0-1.0); Monocytes % (A) 6 %; Neutrophils # (A) 6.2 k/uL (1.3-7.7); Neutrophils % (A) 82 %; Platelet Count 305 k/uL (150-450); RBC 5.07 m/uL (4.30-5.90); RDW 12.7 % (11.5-15.5); WBC 7.6 k/uL (3.8-10.6)
[2021-09-26 09:26] LABS: ALT 190 U/L (4-49); AST 98 U/L (17-59); African American GFR (CKD) >90 (>60 ml/min/1.73 sqM); Albumin 3.2 g/dL (3.5-5.0); Alkaline Phosphatase 64 U/L (38-126); Anion Gap 7 mmol/L; Blood Urea Nitrogen 23 mg/dL (9-20); Calcium 8.2 mg/dL (8.4-10.2); Carbon Dioxide 26 mmol/L (22-30); Chloride 103 mmol/L (98-107); Glucose 113 mg/dL (74-99); LDH 1579 U/L (313-618); Non-African American GFR(CKD) >90 (>60 ml/min/1.73 sqM); Potassium 4.3 mmol/L (3.5-5.1); Sodium 136 mmol/L (137-145); Total Bilirubin 0.8 mg/dL (0.2-1.3)
[2021-09-26 12:10] LABS: Glucose,Whole Blood 158 mg/dL (75-99)
--- NOTE | 2021-09-26 15:40 | P.PN ---
Subjective Progress Note Date: 09/26/21 Principal diagnosis: Shortness of breath. Pulmonary consult dated 09/23/2021. 61-year-old male, who presents to the emergency department on September 22. He came with complaints of cough, shortness of breath, fever, bodyaches, and generally just not feeling well. He apparently is been having symptoms now for about 8 days. He tested positive on September 17. Since that time, he's been getting progressively worse, and apparently he's been monitoring his oxygen at home, and his saturations have been in the low to mid 80s. The patient did receive a coronavirus vaccination on September 07. Currently, the patient is on 15 L high flow nasal cannula. His saturations are in the mid 80s. We asked the respiratory therapist to place a nonrebreather mask. The patient is not receiving any IV fluids. We recommended Lovenox, Decadron, vitamins, and KATHY. White count 6.6, hemoglobin 14.5, hematocrit 43.7, and platelet count 196,000. Sodium 134, potassium 4.3, chlorides 12, CO2 25, anion gap 7, BUN 20, and creatinine 0.7. Chest x-ray showed diffuse bilateral patchy infiltrates. CT angiogram was negative for pulmonary embolism, but did show bilateral interstitial and airspace pneumonia. Progress note dated 09/24/2021. 61-year-old male, who we saw consultation yesterday. He initially was seen in the emergency department on September 22. He came in with complaints of cough, shortness of breath, fever, 98, and generally just not feeling well. He had sy mptoms for about 8 days prior to his visit in the emergency department. Anyway, the patient is currently on 15 L high flow nasal cannula, and also a nonrebreather mask. He's feeling about the same. The patient's getting saline at [address] angiogram was negative for pulmonary embolism. It did show bilateral pneumonia. White count 10.9, hemoglobin hematocrit and platelet count all normal. D-dimer 2.01. Sodium 139, potassium 4.2, chlorides 107, CO2 25, anion gap 7, BUN 24, and creatinine 0.58. Chest x-ray from the shows bilateral infiltrates, possibly slightly worse than his admission x-ray. Progress note dated 09/25/2021. 61-year-old male who was seen in consultation 2 days ago. He presented to the emergency department on the . He came with complaints of cough, shortness of breath, fever, and generally not feeling well. Currently, the patient is on 8:15 they're high flow nasal cannula, and a nonrebreather mass. Is getting saline at [address] angiogram was negative for pulmonary embolism. He was diagnosed with coronavirus associated pneumonia. White count 10, hemoglobin 15.2, hematocrit 43.9, and platelet count 298,000. Sodium 136, potassium 4.1, chlorides 105, CO2 25, anion gap 6, BUN 23, and creatinine 0.64. No chest x-ray today. Progress note dated 09/26/2021. 61-year-old male, again seen in room 361. Currently, the patient appears to be feeling better and doing better. Previously, the patient was on a nonrebreather mask, and also 15 L high flow nasal cannula. Currently, his been weaned down to 10 L high flow nasal cannula. He does use seat nonrebreather mask, sparingly. Today's saturations are 94%. The rest of his vital signs are stable. Does not appear to be particularly short of breath. White count 7.6, he will 15.4, hematocrit 44.5, and platelet count 305,000. D-dimer is 2.69. Sodium 136, potassium 4.3, chlorides 103, CO2 26, anion gap 7, BUN 23, and creatinine 0.65. LDH is 1579. C-reactive protein is 4. Chest x-ray continues to show diffuse bilateral infiltrates, with no significant change from prior x-rays. Objective - Vital Signs Vital signs: Vital Signs Temp 97.7 F 09/26/21 12:00 Pulse 87 09/26/21 12:00 Resp 24 09/26/21 12:00 BP 142/76 09/26/21 12:00 Pulse Ox 94 L 09/26/21 12:00 Intake & Output 09/25/21 09/26/21 09/26/21 18:59 06:59 18:59 Output Total 300 650 Balance -300 -650 Weight 117.7 kg Output: Urine 300 650 Other: Voiding Method Urinal - Exam Mild conversational dyspnea. Oriented 3. The patient's currently on 10 L high flow nasal O2. Saturations are 94%. HEENT examination is grossly unremarkable. Neck supple. Full range of motion. No adenopathy thyromegaly or neck vein distention. Cardiovascular examination reveals regular rhythm rate. S1-S2 normal. No S3 or S4. No discernible murmur noted. Heart rate 87 bpm. Heart sounds are distant. Lungs reveal coarse bilateral rhonchi. Bibasilar crackles. Breath sounds equal bilaterally. No wheezes. Abdomen soft bowel sounds are heard. No masses or tenderness. Extremities are intact. No cyanosis clubbing or edema. Skin is without rash or lesion. Neurologic examination is brief but nonfocal. - Labs CBC & Chem 7: 09/26/21 07:56 09/26/21 07:56 Labs: Abnormal Lab Results - Last 24 Hours (Table) 09/25/21 09/25/21 09/26/21 Range/Units 17:06 20:37 06:06 Lymphocytes # (1.0-4.8) k/uL D-Dimer (<0.60) mg/L FEU Sodium (137-145) mmol/L BUN (9-20) mg/dL Creatinine (0.66-1.25) mg/dL Glucose (74-99) mg/dL POC Glucose (mg/dL) 187 H 136 H 106 H (75-99) mg/dL Calcium (8.4-10.2) mg/dL AST (17-59) U/L ALT (4-49) U/L Lactate Dehydrogenase (313-618) U/L C-Reactive Protein (<1.0) mg/dL Total Protein (6.3-8.2) g/dL Albumin (3.5-5.0) g/dL 09/26/21 09/26/21 09/26/21 Range/Units 07:56 07:56 07:56 Lymphocytes # 0.7 L (1.0-4.8) k/uL D-Dimer 2.69 H (<0.60) mg/L FEU Sodium 136 L (137-145) mmol/L BUN 23 H (9-20) mg/dL Creatinine 0.65 L (0.66-1.25) mg/dL Glucose 113 H (74-99) mg/dL POC Glucose (mg/dL) (75-99) mg/dL Calcium 8.2 L (8.4-10.2) mg/dL AST 98 H (17-59) U/L ALT 190 H (4-49) U/L Lactate Dehydrogenase 1579 H (313-618) U/L C-Reactive Protein 4.0 H (<1.0) mg/dL Total Protein 6.0 L (6.3-8.2) g/dL Albumin 3.2 L (3.5-5.0) g/dL 09/26/21 Range/Units 12:08 Lymphocytes # (1.0-4.8) k/uL D-Dimer (<0.60) mg/L FEU Sodium (137-145) mmol/L BUN (9-20) mg/dL Creatinine (0.66-1.25) mg/dL Glucose (74-99) mg/dL POC Glucose (mg/dL) 158 H (75-99) mg/dL Calcium (8.4-10.2) mg/dL AST (17-59) U/L ALT (4-49) U/L Lactate Dehydrogenase (313-618) U/L C-Reactive Protein (<1.0) mg/dL Total Protein (6.3-8.2) g/dL Albumin (3.5-5.0) g/dL Assessment and Plan Assessment: Acute hypoxemic respiratory failure secondary to coronavirus associated pneumonia. No evidence of pulmonary embolism on CT angiogram. History of degenerative disc disease. History of kidney stones. History of sleep apnea syndrome. Obesity. Plan: Plan dated 09/23/2021. We recommend the nonrebreather mask in association with a high flow nasal cannula. In addition, we recommend Lovenox, 40 mg subcu daily, Decadron 6 mg daily, vitamin C, vitamin D3, and zinc, as well as KATHY. We also recommend an albuterol inhaler. The patient's prognosis is guarded. The patient should be admitted to inpatient bed. We did let the nurse know that. In addition, we asked the respiratory therapist to place a nonrebreather mask on the patient as well as the high flow nasal O2. Plan dated 09/24/2021. T11-year-old male who we saw in consultation yesterday. The patient remains on saline at 75 mL an hour, and both a nonrebreather mask, 15 L high flow nasal cannula. He's feeling about the same as he did yesterday. Remains on Decadron, Lovenox, vitamin C, vitamin D3, and zinc. In addition, he is on KATHY. The patient does understand that his condition may worsen, and he may need transfer to the intensive care unit. Further, he realizes that he may end up on mechanical life support. That has been explained to him. We will continue to follow make recommendations where appropriate. Plan dated 09/25/2021. The patient is again seen today in room 361. He remains on saline at 75 mL an hour, as well as 15 L high flow nasal cannula, and a nonrebreather mask. The patient appears be doing reasonably well. The patient continues on Decadron, Lovenox, vitamin C, vitamin D3, and zinc. In addition, he is on KATHY. The patient feels a bit better today than he did yesterday. He also realizes that he could get worse and ended up in the intensive care unit, on the mechanical breathing machine. We will continue to follow make recommendations where appropriate. Prognosis is guarded. Plan dated 09/26/2021. The patient appears to be doing better. The patient has been weaned down to 10 L high flow nasal O2. We will continue to follow make recommendations were appropriate. The patient continues on Decadron, Lovenox, vitamin C, vitamin D3, zinc, and KATHY. Prognosis remains guarded, but it is a good sign that his oxygen patient has improved and his oxygen requirements have gone down. Time with Patient: Less than 30
[2021-09-26 17:05] LABS: Glucose,Whole Blood 215 mg/dL (75-99)
[2021-09-26] MEDS: SODIUM CHLORIDE 0.9% 1,000 ML IV SCH ×2 (19:19→21:10)
[2021-09-26 21:15] LABS: Glucose,Whole Blood 147 mg/dL (75-99)
[2021-09-27] MEDS ORDERED: SODIUM CHLORIDE 0.65% NASAL SPRAY 44 ML BTL NASAL PRN (03:37)
[2021-09-27] MEDS: INSULIN ASPART (NovoLOG) 100 UNIT/ML VIAL SQ SCH ×4 (05:51→21:23)
[2021-09-27 05:52] LABS: Glucose,Whole Blood 80 mg/dL (75-99)
[2021-09-27] MEDS: PANTOPRAZOLE 40 MG TABLET PO SCH ×2 (06:27→17:07)
[2021-09-27] MEDS: ALBUTEROL HFA INHALER INHALATION SCH ×4 (08:10→21:12)
[2021-09-27 08:48] LABS: ALT 166 U/L (4-49); AST 69 U/L (17-59); African American GFR (CKD) >90 (>60 ml/min/1.73 sqM); Albumin 3.2 g/dL (3.5-5.0); Alkaline Phosphatase 64 U/L (38-126); Anion Gap 6 mmol/L; Blood Urea Nitrogen 20 mg/dL (9-20); Calcium 8.2 mg/dL (8.4-10.2); Carbon Dioxide 25 mmol/L (22-30); Chloride 104 mmol/L (98-107); Glucose 89 mg/dL (74-99); Non-African American GFR(CKD) >90 (>60 ml/min/1.73 sqM); Potassium 4.1 mmol/L (3.5-5.1); Sodium 135 mmol/L (137-145); Total Bilirubin 0.8 mg/dL (0.2-1.3); Total Protein 6.1 g/dL (6.3-8.2)
[2021-09-27 08:49] LABS: Basophils # (A) 0.1 k/uL (0-0.2); Basophils % (A) 1 %; Eosinophils # (A) 0.1 k/uL (0-0.7); Eosinophils % (A) 1 %; HCT 44.3 % (39.0-53.0); HGB 15.6 gm/dL (13.0-17.5); Lymphocytes % (A) 11 %; MCH 30.7 pg (25.0-35.0); MCHC 35.2 g/dL (31.0-37.0); MCV 87.2 fL (80.0-100.0); Mean Platelet Volume 7.7; Monocytes # (A) 0.5 k/uL (0-1.0); Monocytes % (A) 6 %; Neutrophils # (A) 7.5 k/uL (1.3-7.7); Neutrophils % (A) 81 %; Platelet Count 344 k/uL (150-450); RBC 5.07 m/uL (4.30-5.90); RDW 12.5 % (11.5-15.5); WBC 9.3 k/uL (3.8-10.6)
[2021-09-27] MEDS: BARICITINIB 2 MG TABLET PO SCH (09:43)
[2021-09-27] MEDS: ENOXAPARIN 40 MG/0.4 ML SYRINGE SQ SCH (09:43)
[2021-09-27] MEDS: ZINC SULFATE 220 MG CAP PO SCH (09:44)
[2021-09-27] MEDS: DEXAMETHASONE SOD PHOSPHATE 10 MG/ML 1 ML VIAL IVP SCH (09:44)
[2021-09-27] MEDS: ASCORBIC ACID 500 MG TAB PO SCH (09:44)
[2021-09-27] MEDS: CHOLECALCIFEROL 25 MCG (1000 IU) TABLET PO SCH (09:44)
[2021-09-27 11:44] LABS: Glucose,Whole Blood 132 mg/dL (75-99)
--- NOTE | 2021-09-27 16:39 | P.PN ---
Subjective Progress Note Date: 09/27/21 Principal diagnosis: Shortness of breath. Pulmonary consult dated 09/23/2021. 61-year-old male, who presents to the emergency department on September 22. He came with complaints of cough, shortness of breath, fever, bodyaches, and generally just not feeling well. He apparently is been having symptoms now for about 8 days. He tested positive on September 17. Since that time, he's been getting progressively worse, and apparently he's been monitoring his oxygen at home, and his saturations have been in the low to mid 80s. The patient did receive a coronavirus vaccination on September 07. Currently, the patient is on 15 L high flow nasal cannula. His saturations are in the mid 80s. We asked the respiratory therapist to place a nonrebreather mask. The patient is not receiving any IV fluids. We recommended Lovenox, Decadron, vitamins, and KATHY. White count 6.6, hemoglobin 14.5, hematocrit 43.7, and platelet count 196,000. Sodium 134, potassium 4.3, chlorides 12, CO2 25, anion gap 7, BUN 20, and creatinine 0.7. Chest x-ray showed diffuse bilateral patchy infiltrates. CT angiogram was negative for pulmonary embolism, but did show bilateral interstitial and airspace pneumonia. Progress note dated 09/24/2021. 61-year-old male, who we saw consultation yesterday. He initially was seen in the emergency department on September 22. He came in with complaints of cough, shortness of breath, fever, 98, and generally just not feeling well. He had sy mptoms for about 8 days prior to his visit in the emergency department. Anyway, the patient is currently on 15 L high flow nasal cannula, and also a nonrebreather mask. He's feeling about the same. The patient's getting saline at [address] angiogram was negative for pulmonary embolism. It did show bilateral pneumonia. White count 10.9, hemoglobin hematocrit and platelet count all normal. D-dimer 2.01. Sodium 139, potassium 4.2, chlorides 107, CO2 25, anion gap 7, BUN 24, and creatinine 0.58. Chest x-ray from the shows bilateral infiltrates, possibly slightly worse than his admission x-ray. Progress note dated 09/25/2021. 61-year-old male who was seen in consultation 2 days ago. He presented to the emergency department on the . He came with complaints of cough, shortness of breath, fever, and generally not feeling well. Currently, the patient is on 8:15 they're high flow nasal cannula, and a nonrebreather mass. Is getting saline at [address] angiogram was negative for pulmonary embolism. He was diagnosed with coronavirus associated pneumonia. White count 10, hemoglobin 15.2, hematocrit 43.9, and platelet count 298,000. Sodium 136, potassium 4.1, chlorides 105, CO2 25, anion gap 6, BUN 23, and creatinine 0.64. No chest x-ray today. Progress note dated 09/26/2021. 61-year-old male, again seen in room 361. Currently, the patient appears to be feeling better and doing better. Previously, the patient was on a nonrebreather mask, and also 15 L high flow nasal cannula. Currently, his been weaned down to 10 L high flow nasal cannula. He does use seat nonrebreather mask, sparingly. Today's saturations are 94%. The rest of his vital signs are stable. Does not appear to be particularly short of breath. White count 7.6, he will 15.4, hematocrit 44.5, and platelet count 305,000. D-dimer is 2.69. Sodium 136, potassium 4.3, chlorides 103, CO2 26, anion gap 7, BUN 23, and creatinine 0.65. LDH is 1579. C-reactive protein is 4. Chest x-ray continues to show diffuse bilateral infiltrates, with no significant change from prior x-rays. Progress note dated 09/27/2021. 61-year-old male, again seen in room 361. Currently, the patient appears to be doing better. He's been weaned down to 10 L high flow nasal O2. He's not using a nonrebreather mass. His vital signs are stable. His saturations are 92%. Labs today include a white count 9.3, hemoglobin 15.6, hematocrit 44.3, and a platelet count 344,000. Sodium 135, potassium 4.1, chlorides 104, CO2 25, anion gap 6, BUN 20, creatinine 0.66. Calcium 8.2. AST 69 with an ALT 166. The chest x-ray from yesterday showed bilateral low lung volumes, and diffuse bilateral infiltrates. Objective - Vital Signs Vital signs: Vital Signs Temp 97.8 F 09/27/21 03:25 Pulse 92 09/27/21 12:00 Resp 20 09/27/21 12:00 BP 132/87 09/27/21 12:00 Pulse Ox 92 L 09/27/21 12:00 Intake & Output 09/26/21 09/27/21 09/27/21 18:59 06:59 18:59 Intake Total 200 180 Output Total 400 700 580 Balance -200 -700 -400 Weight 116.5 kg Intake: Oral 200 180 Output: Urine 400 700 580 Other: Voiding Method Urinal Urinal # Bowel Movements 1 1 - Exam Mild conversational dyspnea. Oriented 3. The patient's currently on 10 L high flow nasal O2. Saturations are 92%. HEENT examination is grossly unremarkable. Neck supple. Full range of motion. No adenopathy thyromegaly or neck vein distention. Cardiovascular examination reveals regular rhythm rate. S1-S2 normal. No S3 or S4. No discernible murmur noted. Heart rate 92 bpm. Heart sounds are distant. Lungs reveal coarse bilateral rhonchi. Bibasilar crackles. Breath sounds equal bilaterally. No wheezes. Breath sounds are generally a bit improved. Abdomen soft bowel sounds are heard. No masses or tenderness. Extremities are intact. No cyanosis clubbing or edema. Skin is without rash or lesion. Neurologic examination is brief but nonfocal. - Labs CBC & Chem 7: 09/27/21 07:53 09/27/21 07:53 Labs: Abnormal Lab Results - Last 24 Hours (Table) 09/26/21 09/26/21 09/27/21 Range/Units 17:02 21:00 07:53 Sodium 135 L (137-145) mmol/L POC Glucose (mg/dL) 215 H 147 H (75-99) mg/dL Calcium 8.2 L (8.4-10.2) mg/dL AST 69 H (17-59) U/L ALT 166 H (4-49) U/L Total Protein 6.1 L (6.3-8.2) g/dL Albumin 3.2 L (3.5-5.0) g/dL 09/27/21 Range/Units 11:43 Sodium (137-145) mmol/L POC Glucose (mg/dL) 132 H (75-99) mg/dL Calcium (8.4-10.2) mg/dL AST (17-59) U/L ALT (4-49) U/L Total Protein (6.3-8.2) g/dL Albumin (3.5-5.0) g/dL Assessment and Plan Assessment: Acute hypoxemic respiratory failure secondary to coronavirus associated pneumonia. No evidence of pulmonary embolism on CT angiogram. History of degenerative disc disease. History of kidney stones. History of sleep apnea syndrome. Obesity. Plan: Plan dated 09/23/2021. We recommend the nonrebreather mask in association with a high flow nasal cannula. In addition, we recommend Lovenox, 40 mg subcu daily, Decadron 6 mg daily, vitamin C, vitamin D3, and zinc, as well as KATHY. We also recommend an albuterol inhaler. The patient's prognosis is guarded. The patient should be admitted to inpatient bed. We did let the nurse know that. In addition, we asked the respiratory therapist to place a nonrebreather mask on the patient as well as the high flow nasal O2. Plan dated 09/24/2021. T11-year-old male who we saw in consultation yesterday. The patient remains on saline at 75 mL an hour, and both a nonrebreather mask, 15 L high flow nasal cannula. He's feeling about the same as he did yesterday. Remains on Decadron, Lovenox, vitamin C, vitamin D3, and zinc. In addition, he is on KATHY. The patient does understand that his condition may worsen, and he may need transfer to the intensive care unit. Further, he realizes that he may end up on mechanical life support. That has been explained to him. We will continue to follow make recommendations where appropriate. Plan dated 09/25/2021. The patient is again seen today in room 361. He remains on saline at 75 mL an hour, as well as 15 L high flow nasal cannula, and a nonrebreather mask. The patient appears be doing reasonably well. The patient continues on Decadron, Lovenox, vitamin C, vitamin D3, and zinc. In addition, he is on KATHY. The patient feels a bit better today than he did yesterday. He also realizes that he could get worse and ended up in the intensive care unit, on the mechanical breathing machine. We will continue to follow make recommendations where appropriate. Prognosis is guarded. Plan dated 09/26/2021. The patient appears to be doing better. The patient has been weaned down to 10 L high flow nasal O2. We will continue to follow make recommendations were appropriate. The patient continues on Decadron, Lovenox, vitamin C, vitamin D3, zinc, and KATHY. Prognosis remains guarded, but it is a good sign that his oxygen patient has improved and his oxygen requirements have gone down. Plan dated 09/27/2021. The patient has been weaned down to 10 L high flow nasal O2. He seems to be feeling better and breathing better. Remains on usual medications including Decadron, Lovenox, vitamin C, vitamin D3, zinc, and KATHY. We will continue to follow the patient and make recommendations where appropriate. Prognosis is certainly guarded. I've asked the patient to move around while he is in bed. In fact, if he can lie in the prone position, that would help. Time with Patient: Less than 30
[2021-09-27] MEDS: SODIUM CHLORIDE 0.9% 1,000 ML IV SCH (17:07)
[2021-09-27 17:16] LABS: Glucose,Whole Blood 199 mg/dL (75-99)
--- NOTE | 2021-09-27 17:31 | P.PN ---
Subjective Progress Note Date: 09/26/21 Principal diagnosis: Acute hypoxic respiratory failure secondary to COVID-19 pneumonia 61-year-old male who follows with Dr. Farah. He presents to the after having symptoms of shortness of breath, cough, fever, body aches and chills since last Tuesday. He has been getting significantly worse since, and became hypoxic with a pulse ox in the 80s on room air at home. He tested positive for COVID on the 09/17/21. Patient did receive his first dose of Moderna vaccinati on on September 07. Patient and at the bedside denying any other positive Covid in the family. Patient's past medical history significant for hernia disc, kidney stones, questionable sleep apnea, prediabetic. Patient is a former smoker, he quit smoking in 2007 and smoked 1 pack per day or less for 25-30 years. He denies any history of COPD and is not using oxygen at home. Patient is not taking any prescribed medications at home and his states that there are no major underlying health conditions. Patient denies any drug use or alcohol use. admission showed white count of 6.6, platelet 133, d-dimer 5.39, sodium 134, glucose 162, ast 72, troponin negative. LDH is 1236 and his CRP is 21.3. Chest x-ray on admission shows patchy bilateral interstitial pneumonia. Chest CTA shows no evidence of pulmonary embolism. Bilateral interstitial and airspace pneumonia. Mediastinal and bronchial lymph nodes consistent with inflammatory disease. Vitals show a temperature of 100.5 on admission, normal sinus rhythm in the 80s, respiratory rate in the 20s, blood pressure 124/84, he is 94% on 5 L nasal cannula. Patient to receive an infusion of Bamlanivimab in the EC. He also received a 1.3 with a bolus. Patient was started on IV Decadron, zinc, Covid vitamins, Lovenox for prophylaxis. We did consult pulmonary due to the hypoxia. 09/25/2021 Patient is evaluated today resting that. He is on a 15 L high flow cannula as well as a 15 L nonrebreather. Patient is a slightly having some shortness of breath and difficulty taking a deep breath. He is currently denying any chest pain, chest pressure, nausea vomiting or diarrhea. He does have pain with deep inspiration and expiration. Patient is being followed closely by pulmonary services. Labs today show white count 10.9, d-dimer of 2 today, LDH 1677 and CRP of 3. Metabolic panel pending from today. Patient's oxygen saturation is 97% on 15 L; pulse of 89 and temperature 90.7 0.90FNC, blood pressure stable at 134/72. 09/26/2021 Patient is seen and evaluated and discussed with nursing staff; patient remains on oxygen via HFNC and nonrebreather mask; continues to require 15 L of oxygen Vital signs are reviewed temperature 97.7, pulse 87, respiration 24 blood pressure 142/76 with O2 saturation 94% White count 7.6, he will 15.4, hematocrit 44.5, and platelet count 305,000. D- dimer is 2.69. Sodium 136, potassium 4.3, chlorides 103, CO2 26, anion gap 7, B UN 23, and creatinine 0.65. LDH is 1579. C-reactive protein is 4. Chest x-ray continues to show diffuse bilateral infiltrates, with no significant change from prior x-rays. Patient remains on Decadron, Lovenox, vitamin C, vitamin D and zinc sulfate along with KATHY; patient is making slow progress with oxygen saturation improving slowly Objective - Vital Signs Vital signs: Vital Signs Temp 98 F 09/26/21 08:00 Pulse 89 09/26/21 08:00 Resp 28 H 09/26/21 08:00 BP 134/74 09/26/21 08:00 Pulse Ox 90 L 09/26/21 08:00 Intake & Output 09/25/21 09/26/21 09/26/21 18:59 06:59 18:59 Output Total 300 650 Balance -300 -650 Weight 117.7 kg Output: Urine 300 650 Other: Voiding Method Urinal - Exam GENERAL: The patient is alert and oriented x3, tachypneic, Well developed, well nourished. HEENT: Pupils are round and equally reacting to light. EOMI. No scleral icterus. No conjunctival pallor. Normocephalic, atraumatic. No pharyngeal erythema. No thyromegaly. CARDIOVASCULAR: S1 and S2 present. No murmurs, rubs, or gallops. PULMONARY: Chest is clear to auscultation, no wheezing or crackles. Diminished aeration, lungs are tight. ABDOMEN: Soft, nontender, nondistended, normoactive bowel sounds. No palpable organomegaly. MUSCULOSKELETAL: No joint swelling or deformity. EXTREMITIES: No cyanosis, clubbing, or pedal edema. NEUROLOGICAL: Gross neurological examination did not reveal any focal deficits. SKIN: No rashes. - Labs CBC & Chem 7: 09/27/21 07:53 09/27/21 07:53 Labs: Abnormal Lab Results - Last 24 Hours (Table) 09/25/21 09/25/21 09/26/21 Range/Units 17:06 20:37 06:06 Lymphocytes # (1.0-4.8) k/uL D-Dimer (<0.60) mg/L FEU Sodium (137-145) mmol/L BUN (9-20) mg/dL Creatinine (0.66-1.25) mg/dL Glucose (74-99) mg/dL POC Glucose (mg/dL) 187 H 136 H 106 H (75-99) mg/dL Calcium (8.4-10.2) mg/dL AST (17-59) U/L ALT (4-49) U/L Lactate Dehydrogenase (313-618) U/L C-Reactive Protein (<1.0) mg/dL Total Protein (6.3-8.2) g/dL Albumin (3.5-5.0) g/dL 09/26/21 09/26/21 09/26/21 Range/Units 07:56 07:56 07:56 Lymphocytes # 0.7 L (1.0-4.8) k/uL D-Dimer 2.69 H (<0.60) mg/L FEU Sodium 136 L (137-145) mmol/L BUN 23 H (9-20) mg/dL Creatinine 0.65 L (0.66-1.25) mg/dL Glucose 113 H (74-99) mg/dL POC Glucose (mg/dL) (75-99) mg/dL Calcium 8.2 L (8.4-10.2) mg/dL AST 98 H (17-59) U/L ALT 190 H (4-49) U/L Lactate Dehydrogenase 1579 H (313-618) U/L C-Reactive Protein 4.0 H (<1.0) mg/dL Total Protein 6.0 L (6.3-8.2) g/dL Albumin 3.2 L (3.5-5.0) g/dL
--- NOTE | 2021-09-27 17:33 | P.PN ---
Subjective Progress Note Date: 09/27/21 Principal diagnosis: Acute hypoxic respiratory failure secondary to COVID-19 pneumonia 61-year-old male who follows with Dr. Farah. He presents to the after having symptoms of shortness of breath, cough, fever, body aches and chills since last Tuesday. He has been getting significantly worse since, and became hypoxic with a pulse ox in the 80s on room air at home. He tested positive for COVID on the 09/17/21. Patient did receive his first dose of Moderna vaccinati on on September 07. Patient and at the bedside denying any other positive Covid in the family. Patient's past medical history significant for hernia disc, kidney stones, questionable sleep apnea, prediabetic. Patient is a former smoker, he quit smoking in 2007 and smoked 1 pack per day or less for 25-30 years. He denies any history of COPD and is not using oxygen at home. Patient is not taking any prescribed medications at home and his states that there are no major underlying health conditions. Patient denies any drug use or alcohol use. admission showed white count of 6.6, platelet 133, d-dimer 5.39, sodium 134, glucose 162, ast 72, troponin negative. LDH is 1236 and his CRP is 21.3. Chest x-ray on admission shows patchy bilateral interstitial pneumonia. Chest CTA shows no evidence of pulmonary embolism. Bilateral interstitial and airspace pneumonia. Mediastinal and bronchial lymph nodes consistent with inflammatory disease. Vitals show a temperature of 100.5 on admission, normal sinus rhythm in the 80s, respiratory rate in the 20s, blood pressure 124/84, he is 94% on 5 L nasal cannula. Patient to receive an infusion of Bamlanivimab in the EC. He also received a 1.3 with a bolus. Patient was started on IV Decadron, zinc, Covid vitamins, Lovenox for prophylaxis. We did consult pulmonary due to the hypoxia. 09/25/2021 Patient is evaluated today resting that. He is on a 15 L high flow cannula as well as a 15 L nonrebreather. Patient is a slightly having some shortness of breath and difficulty taking a deep breath. He is currently denying any chest pain, chest pressure, nausea vomiting or diarrhea. He does have pain with deep inspiration and expiration. Patient is being followed closely by pulmonary services. Labs today show white count 10.9, d-dimer of 2 today, LDH 1677 and CRP of 3. Metabolic panel pending from today. Patient's oxygen saturation is 97% on 15 L; pulse of 89 and temperature 90.7 0.90FNC, blood pressure stable at 134/72. 09/26/2021 Patient is seen and evaluated and discussed with nursing staff; patient remains on oxygen via HFNC and nonrebreather mask; continues to require 15 L of oxygen Vital signs are reviewed temperature 97.7, pulse 87, respiration 24 blood pressure 142/76 with O2 saturation 94% White count 7.6, he will 15.4, hematocrit 44.5, and platelet count 305,000. D- dimer is 2.69. Sodium 136, potassium 4.3, chlorides 103, CO2 26, anion gap 7, B UN 23, and creatinine 0.65. LDH is 1579. C-reactive protein is 4. Chest x-ray continues to show diffuse bilateral infiltrates, with no significant change from prior x-rays. Patient remains on Decadron, Lovenox, vitamin C, vitamin D and zinc sulfate along with KATHY; patient is making slow progress with oxygen saturation improving slowly 09/27/2021 Patient is seen and evaluated in follow-up; currently on 10 L high flow nasal cannula oxygen; not using nonrebreather mask anymore; keeping O2 saturation greater than 92% Vital signs review show temperature 97.8, pulse 82, respiration 20 and blood pressure 132/87 Labs today include a white count 9.3, hemoglobin 15.6, hematocrit 44.3, and a platelet count 344,000. Sodium 135, potassium 4.1, chlorides 104, CO2 25, anion gap 6, BUN 20, creatinine 0.66. Calcium 8.2. AST 69 with an ALT 166. The chest x-ray from yesterday showed bilateral low lung volumes, and diffuse bilateral infiltrates. Remains on usual medications including Decadron, Lovenox, vitamin C, vitamin D3, zinc, and KATHY. Self-proning is encouraged Objective - Vital Signs Vital signs: Vital Signs Temp 97.8 F 09/27/21 03:25 Pulse 84 09/27/21 03:25 Resp 22 09/27/21 03:25 BP 142/86 09/27/21 03:25 Pulse Ox 89 L 09/27/21 03:25 Intake & Output 09/26/21 09/27/21 09/27/21 18:59 06:59 18:59 Intake Total 200 180 Output Total 400 700 240 Balance -200 -700 -60 Weight 116.5 kg Intake: Oral 200 180 Output: Urine 400 700 240 Other: Voiding Method Urinal # Bowel Movements 1 1 - Exam GENERAL: The patient is alert and oriented x3, tachypneic, Well developed, well nourished. HEENT: Pupils are round and equally reacting to light. EOMI. No scleral icterus. No conjunctival pallor. Normocephalic, atraumatic. No pharyngeal erythema. No thyromegaly. CARDIOVASCULAR: S1 and S2 present. No murmurs, rubs, or gallops. PULMONARY: Chest is clear to auscultation, no wheezing or crackles. Diminished aeration, lungs are tight. ABDOMEN: Soft, nontender, nondistended, normoactive bowel sounds. No palpable organomegaly. MUSCULOSKELETAL: No joint swelling or deformity. EXTREMITIES: No cyanosis, clubbing, or pedal edema. NEUROLOGICAL: Gross neurological examination did not reveal any focal deficits. SKIN: No rashes. - Labs CBC & Chem 7: 09/27/21 07:53 09/27/21 07:53 Labs: Abnormal Lab Results - Last 24 Hours (Table) 09/26/21 09/26/21 09/26/21 Range/Units 12:08 17:02 21:00 Sodium (137-145) mmol/L POC Glucose (mg/dL) 158 H 215 H 147 H (75-99) mg/dL Calcium (8.4-10.2) mg/dL AST (17-59) U/L ALT (4-49) U/L Total Protein (6.3-8.2) g/dL Albumin (3.5-5.0) g/dL 09/27/21 Range/Units 07:53 Sodium 135 L (137-145) mmol/L POC Glucose (mg/dL) (75-99) mg/dL Calcium 8.2 L (8.4-10.2) mg/dL AST 69 H (17-59) U/L ALT 166 H (4-49) U/L Total Protein 6.1 L (6.3-8.2) g/dL Albumin 3.2 L (3.5-5.0) g/dL Assessment and Plan Assessment: Acute hypoxic respiratory failure secondary to COVID-19 pneumonia, on 15L non- rebreather, and 15 L high flow nasal cannula Elevated DD, CTA negative for pulmonary embolism Hyponatremia secondary to poor oral intake and dehydration, improving Fever secondary to COVID pnuemonia Elevated LDH, CRP secondary to inflammation from COVID infection Hyperglycemia, A1C 6.5, patient is most likely a type 2 diabetic, continue with novolog Elevated liver enzymes, monitor History of nicotine dependence - 25 to 30 year pack history History of kidney stones GI Prophylaxis: Protonix DVT Prophylaxis: Lovenox Plan Continue Steroids, zinc, and covid vitamins, KATHY Monitor blood sugars Continue all other supportive care Repeat labs tomorrow
[2021-09-27 20:32] LABS: Glucose,Whole Blood 147 mg/dL (75-99)
[2021-09-28] MEDS: SODIUM CHLORIDE 0.9% 1,000 ML IV SCH ×2 (05:21→17:11)
[2021-09-28] MEDS: PANTOPRAZOLE 40 MG TABLET PO SCH ×2 (05:21→17:10)
[2021-09-28 05:54] LABS: Glucose,Whole Blood 103 mg/dL (75-99)
[2021-09-28 06:53] LABS: HCT 41.9 % (39.0-53.0); HGB 14.3 gm/dL (13.0-17.5); MCH 30.6 pg (25.0-35.0); MCHC 34.2 g/dL (31.0-37.0); MCV 89.4 fL (80.0-100.0); Mean Platelet Volume 7.3; Platelet Count 376 k/uL (150-450); RBC 4.68 m/uL (4.30-5.90); RDW 13.3 % (11.5-15.5); WBC 6.4 k/uL (3.8-10.6)
[2021-09-28 07:26] LABS: ALT 128 U/L (4-49); AST 48 U/L (17-59); African American GFR (CKD) >90 (>60 ml/min/1.73 sqM); Albumin 2.7 g/dL (3.5-5.0); Alkaline Phosphatase 49 U/L (38-126); Anion Gap 4 mmol/L; Blood Urea Nitrogen 19 mg/dL (9-20); Carbon Dioxide 28 mmol/L (22-30); Chloride 105 mmol/L (98-107); Glucose 99 mg/dL (74-99); Non-African American GFR(CKD) >90 (>60 ml/min/1.73 sqM); Potassium 4.4 mmol/L (3.5-5.1); Sodium 137 mmol/L (137-145); Total Bilirubin 0.5 mg/dL (0.2-1.3); Total Protein 5.4 g/dL (6.3-8.2)
[2021-09-28] MEDS: INSULIN ASPART (NovoLOG) 100 UNIT/ML VIAL SQ SCH ×4 (08:33→20:48)
[2021-09-28] MEDS: ASCORBIC ACID 500 MG TAB PO SCH (08:41)
[2021-09-28] MEDS: ENOXAPARIN 40 MG/0.4 ML SYRINGE SQ SCH (08:41)
[2021-09-28] MEDS: CHOLECALCIFEROL 25 MCG (1000 IU) TABLET PO SCH (08:41)
[2021-09-28] MEDS: ZINC SULFATE 220 MG CAP PO SCH (08:42)
[2021-09-28] MEDS: DEXAMETHASONE SOD PHOSPHATE 10 MG/ML 1 ML VIAL IVP SCH (08:42)
[2021-09-28] MEDS: BARICITINIB 2 MG TABLET PO SCH (08:42)
[2021-09-28] MEDS: ALBUTEROL HFA INHALER INHALATION SCH ×4 (09:00→19:44)
[2021-09-28 09:23] LABS: Eosinophils # (M) 0.06 k/uL (0-0.7); Lymphocytes # (M) 1.22 k/uL (1.0-4.8); Metamyelocytes # (M) 0.06 k/uL (0); Metamyelocytes % 1 %; Monocytes # (M) 0.38 k/uL (0-1.0); Myelocytes # (M) 0.06 k/uL (0); Myelocytes % 1 %; Neutrophils # (M) 4.67 k/uL (1.3-7.7); Neutrophils % (M) 73 %; Nucleated Red Blood Cells 0 /100 WBC (0-0); Total Cells Counted 200
--- NOTE | 2021-09-28 10:43 | P.PN ---
Subjective Progress Note Date: 09/28/21 61-year-old male patient admitted on 09/22/2021 for COVID-19 related pneumonia. The patient has tested positive on 09/17/2021. The patient had progressively gotten worse and he came into the hospital after he became hypoxic. He was on high flow oxygen along with a nonrebreather facemask and the CAT scan of the chest showed no evidence of any pulmonary embolism and there was bilateral interstitial and airspace pneumonia. The patient was treated with a combination of Decadron Baricitinib and anticoagulation with Lovenox. CT angiogram was negative for pulmonary embolism. It was positive for pneumonia. He was slowly improving and the patient has been weaned down to 10 L of oxygen by nasal cannu la. On today's evaluation of 09/28/2021, the patient is being seen for a follow-up. No new complaints otherwise. He remains on oxygen at 10 L per minute nasal cannula. The chest x-rays showing stable bilateral pulmonary infiltrates, probably slight improvement on the left compared to the earlier chest x-ray. The lung volumes are still small. In terms of the blood work, white cell count at 6.4, electrolytes are normal, renal function is normal, most recent LDH level was from 09/26/2021 and it was at 1579 and the d-dimer is at 2.69. He is afebrile. Objective - Vital Signs Vital signs: Vital Signs Temp 98.2 F 09/28/21 08:00 Pulse 95 09/28/21 08:00 Resp 18 09/28/21 08:00 BP 124/79 09/28/21 08:00 Pulse Ox 90 L 09/28/21 09:00 Intake & Output 09/27/21 09/28/21 09/28/21 18:59 06:59 18:59 Intake Total 180 Output Total 580 1100 Balance -400 -1100 Weight 115.5 kg Intake: Oral 180 Output: Urine 580 1100 Other: Voiding Method Urinal # Bowel Movements 1 - Exam Mild conversational dyspnea. Oriented 3. The patient's currently on 10 L high flow nasal O2. Saturations are 92%. HEENT examination is grossly unremarkable. Neck supple. Full range of motion. No adenopathy thyromegaly or neck vein distention. Cardiovascular examination reveals regular rhythm rate. S1-S2 normal. No S3 or S4. No discernible murmur noted. Heart rate 92 bpm. Heart sounds are distant. Lungs reveal coarse bilateral rhonchi. Bibasilar crackles. Breath sounds equal bilaterally. No wheezes. Breath sounds are generally a bit improved. Abdomen soft bowel sounds are heard. No masses or tenderness. Extremities are intact. No cyanosis clubbing or edema. Skin is without rash or lesion. Neurologic examination is brief but nonfocal. - Labs CBC & Chem 7: 09/28/21 06:29 09/28/21 06:29 Labs: Abnormal Lab Results - Last 24 Hours (Table) 09/27/21 09/27/21 09/27/21 Range/Units 11:43 17:15 20:21 Metamyelocytes # (Man) (0) k/uL Myelocytes # (Manual) (0) k/uL POC Glucose (mg/dL) 132 H 199 H 147 H (75-99) mg/dL Calcium (8.4-10.2) mg/dL ALT (4-49) U/L Total Protein (6.3-8.2) g/dL Albumin (3.5-5.0) g/dL 09/28/21 09/28/21 09/28/21 Range/Units 05:52 06:29 06:29 Metamyelocytes # (Man) 0.06 H (0) k/uL Myelocytes # (Manual) 0.06 H (0) k/uL POC Glucose (mg/dL) 103 H (75-99) mg/dL Calcium 8.0 L (8.4-10.2) mg/dL ALT 128 H (4-49) U/L Total Protein 5.4 L (6.3-8.2) g/dL Albumin 2.7 L (3.5-5.0) g/dL Assessment and Plan Plan: 1 Acute hypoxemic respiratory failure secondary to coronavirus associated pneumonia. Note that the patient had a CTA at the time of the admission and showed bilateral pneumonia and there was No evidence of pulmonary embolism on CT angiogram. Currently on 10 L of oxygen by nasal cannula. Currently seeing a combination of Decadron and Baricitinib. 2 History of degenerative disc disease. 3 History of kidney stones. 4 History of sleep apnea syndrome. 5 Obesity Plan Plan Continue Decadron 6 mg IV every 24 hours in combination with Baricitinib 1 mg by mouth daily per protocol Continue Lovenox 40 mg subcu for DVT prophylaxis Reduced IV fluids to KVO Monitor inflammatory markers Wean down the FiO2 as tolerated to maintain a saturation above 90% Keep the patient on 10 L of oxygen by nasal cannula. We'll continue to follow make further recommendations based on her progress. Inflammatory markers will be rechecked for tomorrow including a d-dimer.
[2021-09-28 11:34] LABS: Glucose,Whole Blood 144 mg/dL (75-99)
[2021-09-28 13:51] VITALS: BMI 32.6
[2021-09-28 16:47] LABS: Glucose,Whole Blood 203 mg/dL (75-99)
[2021-09-28 20:45] LABS: Glucose,Whole Blood 167 mg/dL (75-99)
[2021-09-29] MEDS: SODIUM CHLORIDE 0.9% 1,000 ML IV SCH ×2 (06:26→17:19)
[2021-09-29] MEDS: PANTOPRAZOLE 40 MG TABLET PO SCH ×2 (06:27→17:18)
[2021-09-29 06:30] LABS: Glucose,Whole Blood 98 mg/dL (75-99)
[2021-09-29] MEDS: INSULIN ASPART (NovoLOG) 100 UNIT/ML VIAL SQ SCH ×4 (06:31→20:38)
[2021-09-29] MEDS: ALBUTEROL HFA INHALER INHALATION SCH ×4 (08:32→19:53)
[2021-09-29 08:49] LABS: HCT 42.9 % (39.0-53.0); HGB 14.6 gm/dL (13.0-17.5); MCH 30.3 pg (25.0-35.0); Mean Platelet Volume 7.8; Platelet Count 418 k/uL (150-450); RBC 4.82 m/uL (4.30-5.90); RDW 12.7 % (11.5-15.5); WBC 7.6 k/uL (3.8-10.6)
[2021-09-29 08:58] LABS: ALT 128 U/L (4-49); AST 48 U/L (17-59); African American GFR (CKD) >90 (>60 ml/min/1.73 sqM); Albumin 2.9 g/dL (3.5-5.0); Alkaline Phosphatase 54 U/L (38-126); Anion Gap 6 mmol/L; Blood Urea Nitrogen 18 mg/dL (9-20); C Reactive Protein 2.8 mg/dL (<1.0); Calcium 8.1 mg/dL (8.4-10.2); Carbon Dioxide 27 mmol/L (22-30); Chloride 103 mmol/L (98-107); Glucose 88 mg/dL (74-99); LDH 1121 U/L (313-618); Non-African American GFR(CKD) >90 (>60 ml/min/1.73 sqM); Potassium 4.3 mmol/L (3.5-5.1); Sodium 136 mmol/L (137-145); Total Bilirubin 0.5 mg/dL (0.2-1.3); Total Protein 5.7 g/dL (6.3-8.2)
[2021-09-29] MEDS: BARICITINIB 2 MG TABLET PO SCH (09:23)
[2021-09-29] MEDS: DEXAMETHASONE SOD PHOSPHATE 10 MG/ML 1 ML VIAL IVP SCH (09:23)
[2021-09-29] MEDS: ZINC SULFATE 220 MG CAP PO SCH (09:23)
[2021-09-29] MEDS: ASCORBIC ACID 500 MG TAB PO SCH (09:23)
[2021-09-29] MEDS: CHOLECALCIFEROL 25 MCG (1000 IU) TABLET PO SCH (09:23)
[2021-09-29] MEDS: ENOXAPARIN 40 MG/0.4 ML SYRINGE SQ SCH (09:24)
--- NOTE | 2021-09-29 10:57 | P.PN ---
Subjective Progress Note Date: 09/29/21 61-year-old male patient admitted on 09/22/2021 for COVID-19 related pneumonia. The patient has tested positive on 09/17/2021. The patient had progressively gotten worse and he came into the hospital after he became hypoxic. He was on high flow oxygen along with a nonrebreather facemask and the CAT scan of the chest showed no evidence of any pulmonary embolism and there was bilateral interstitial and airspace pneumonia. The patient was treated with a combination of Decadron Baricitinib and anticoagulation with Lovenox. CT angiogram was negative for pulmonary embolism. It was positive for pneumonia. He was slowly improving and the patient has been weaned down to 10 L of oxygen by nasal can nula. On today's evaluation of 09/28/2021, the patient is being seen for a follow-up. No new complaints otherwise. He remains on oxygen at 10 L per minute nasal cannula. The chest x-rays showing stable bilateral pulmonary infiltrates, probably slight improvement on the left compared to the earlier chest x-ray. The lung volumes are still small. In terms of the blood work, white cell count at 6.4, electrolytes are normal, renal function is normal, most recent LDH level was from 09/26/2021 and it was at 1579 and the d-dimer is at 2.69. He is afebrile. On today's evaluation of 09/29/2021, the patient is on online liters of oxygen by nasal cannula. His current pulse ox is around 90%. He has taken off his 100% on a beta facemasks. He remains on a combination of Decadron and Baricitin ib and the patient is also on anticoagulation with Lovenox. I noted his inflammatory markers. Repeat markers showed that the levels are essentially improving. LDH level was down to 1121 and the CRP level is down to 2.8. The rest of the electrodes are normal. D-dimer is at 2.1. As such, all of the inflammatory markers are improving. The patient is afebrile. No altered mentation. No nausea or vomiting. No other significant events overnight. No fever. Objective - Vital Signs Vital signs: Vital Signs Temp 97.7 F 09/29/21 08:00 Pulse 63 09/29/21 08:00 Resp 16 09/29/21 08:00 BP 134/77 09/29/21 08:00 Pulse Ox 88 L 09/29/21 08:33 Intake & Output 09/28/21 09/29/21 09/29/21 18:59 06:59 18:59 Intake Total 180 240 Output Total 900 Balance 180 -660 Weight 115.5 kg Intake: Oral 180 240 Output: Urine 900 Other: Voiding Method Urinal Urinal # Voids 1 # Bowel Movements 1 - Exam Mild conversational dyspnea. Oriented 3. The patient's currently on 9 L high flow nasal O2. Saturations are 92%. HEENT examination is grossly unremarkable. Neck supple. Full range of motion. No adenopathy thyromegaly or neck vein distention. Cardiovascular examination reveals regular rhythm rate. S1-S2 normal. No S3 or S4. No discernible murmur noted. Heart rate 92 bpm. Heart sounds are distant. Lungs reveal coarse bilateral rhonchi. Bibasilar crackles. Breath sounds equal bilaterally. No wheezes. Breath sounds are generally a bit improved. Abdomen soft bowel sounds are heard. No masses or tenderness. Extremities are intact. No cyanosis clubbing or edema. Skin is without rash or lesion. Neurologic examination is brief but nonfocal. - Labs CBC & Chem 7: 09/29/21 07:06 09/29/21 07:06 Labs: Abnormal Lab Results - Last 24 Hours (Table) 09/28/21 09/28/21 09/28/21 Range/Units 11:27 16:45 20:43 D-Dimer (<0.60) mg/L FEU Sodium (137-145) mmol/L POC Glucose (mg/dL) 144 H 203 H 167 H (75-99) mg/dL Calcium (8.4-10.2) mg/dL ALT (4-49) U/L Lactate Dehydrogenase (313-618) U/L C-Reactive Protein (<1.0) mg/dL Total Protein (6.3-8.2) g/dL Albumin (3.5-5.0) g/dL 09/29/21 09/29/21 Range/Units 07:06 07:06 D-Dimer 2.17 H (<0.60) mg/L FEU Sodium 136 L (137-145) mmol/L POC Glucose (mg/dL) (75-99) mg/dL Calcium 8.1 L (8.4-10.2) mg/dL ALT 128 H (4-49) U/L Lactate Dehydrogenase 1121 H (313-618) U/L C-Reactive Protein 2.8 H (<1.0) mg/dL Total Protein 5.7 L (6.3-8.2) g/dL Albumin 2.9 L (3.5-5.0) g/dL Assessment and Plan Plan: 1 Acute hypoxemic respiratory failure secondary to coronavirus associated pneumonia. Note that the patient had a CTA at the time of the admission and sh owed bilateral pneumonia and there was No evidence of pulmonary embolism on CT angiogram. Currently on 9 L of oxygen by nasal cannula. Currently seeing a combination of Decadron and Baricitinib. She is clinically improving and oxygenation is improved slightly and currently is down to 9 L. Also, all of the extremity markers are improving. 2 History of degenerative disc disease. 3 History of kidney stones. 4 History of sleep apnea syndrome. 5 Obesity Plan Continue Decadron 6 mg IV every 24 hours in combination with Baricitinib 1 mg by mouth daily per protocol Continue Lovenox 40 mg subcu for DVT prophylaxis Reduced IV fluids to KVO Monitor inflammatory markers Wean down the FiO2 as tolerated to maintain a saturation above 90% Keep the patient on 9 L of oxygen by nasal cannula. We'll continue to follow make further recommendations based on her progress.
[2021-09-29 12:00] LABS: Eosinophils # (M) 0.23 k/uL (0-0.7); Metamyelocytes # (M) 0.15 k/uL (0); Metamyelocytes % 2 %; Monocytes # (M) 0.68 k/uL (0-1.0); Myelocytes # (M) 0.08 k/uL (0); Myelocytes % 1 %; Neutrophils # (M) 4.86 k/uL (1.3-7.7); Neutrophils % (M) 64 %; Nucleated Red Blood Cells 0 /100 WBC (0-0); Total Cells Counted 200
[2021-09-29 12:05] LABS: Glucose,Whole Blood 156 mg/dL (75-99)
[2021-09-29 12:33] LABS: Anisocytosis (M) Present
--- NOTE | 2021-09-29 15:15 | P.PN ---
Subjective Progress Note Date: 09/28/21 Acute hypoxic respiratory failure secondary to COVID-19 pneumonia 61-year-old male who follows with Dr. Farah. He presents to the [facility] after having symptoms of shortness of breath, cough, fever, body aches and chills since last Tuesday. He has been getting significantly worse since, and became hypoxic with a pulse ox in the 80s on room air at home. He tested positive for COVID on the 09/17/21. Patient did receive his first dose of Moderna vaccination on September 07. Patient and at the bedside denying any other positive Covid in the family. Patient's past medical history significant for hernia disc, kidney stones, questionable sleep apnea, prediabetic. Patient is a former smoker, he quit smoking in 2007 and smoked 1 pack per day or less for 25- 30 years. He denies any history of COPD and is not using oxygen at home. Patient is not taking any prescribed medications at home and his states that there are no major underlying health conditions. Patient denies any drug use or alcohol use. admission showed white count of 6.6, platelet 133, d-dimer 5.39, sodium 134, glucose 162, ast 72, troponin negative. LDH is 1236 and his CRP is 21.3. Chest x-ray on admission shows patchy bilateral interstitial pneumonia. Chest CTA shows no evidence of pulmonary embolism. Bilateral interstitial and airspace pneumonia. Mediastinal and bronchial lymph nodes consistent with inflammatory disease. Vitals show a temperature of 100.5 on admission, normal sinus rhythm in the 80s, respiratory rate in the 20s, blood pressure 124/84, he is 94% on 5 L nasal cannula. Patient to receive an infusion of Bamlanivimab in the [facility]. He also received a 1.3 with a bolus. Patient was started on IV Decadron, zinc, Covid vitamins, Lovenox for prophylaxis. We did consult pulmonary due to the hypoxia. 09/25/2021 Patient is evaluated today resting that. He is on a 15 L high flow cannula as well as a 15 L nonrebreather. Patient is a slightly having some shortness of breath and difficulty taking a deep breath. He is currently denying any chest pain, chest pressure, nausea vomiting or diarrhea. He does have pain with deep inspiration and expiration. Patient is being followed closely by pulmonary services. Labs today show white count 10.9, d-dimer of 2 today, LDH 1677 and CRP of 3. Metabolic panel pending from today. Patient's oxygen saturation is 97% on 15 L; pulse of 89 and temperature 90.7 0.90FNC, blood pressure stable at 134/72. 09/26/2021 Patient is seen and evaluated and discussed with nursing staff; patient remains on oxygen via HFNC and nonrebreather mask; continues to require 15 L of oxygen Vital signs are reviewed temperature 97.7, pulse 87, respiration 24 blood pressure 142/76 with O2 saturation 94% White count 7.6, he will 15.4, hematocrit 44.5, and platelet count 305,000. D- dimer is 2.69. Sodium 136, potassium 4.3, chlorides 103, CO2 26, anion gap 7, BUN 23, and creatinine 0.65. LDH is 1579. C-reactive protein is 4. Chest x- ray continues to show diffuse bilateral infiltrates, with no significant change from prior x-rays. Patient remains on Decadron, Lovenox, vitamin C, vitamin D and zinc sulfate along with KATHY; patient is making slow progress with oxygen saturation improving slowly 09/27/2021 Patient is seen and evaluated in follow-up; currently on 10 L high flow nasal cannula oxygen; not using nonrebreather mask anymore; keeping O2 saturation greater than 92% Vital signs review show temperature 97.8, pulse 82, respiration 20 and blood pressure 132/87 Labs today include a white count 9.3, hemoglobin 15.6, hematocrit 44.3, and a platelet count 344,000. Sodium 135, potassium 4.1, chlorides 104, CO2 25, anion gap 6, BUN 20, creatinine 0.66. Calcium 8.2. AST 69 with an ALT 166. The chest x-ray from yesterday showed bilateral low lung volumes, and diffuse bilateral infiltrates. Remains on usual medications including Decadron, Lovenox, vitamin C, vitamin D3, zinc, and KATHY. Self-proning is encouraged 09/28/2021 Patient is seen in follow-up this morning and being followed closely by pulmonary. Patient discontinued on 10 L high flow and weaning as tolerated. Patient continues with Covid vitamins along with IV dexamethasone and baricitinib and will continue. Patient has incentive spirometer at the bedside and encourage the patient to use at least 10 times every hour while awake. Continue to monitor blood sugars closely. Patient denies chest pain or palpitations. Patient is afebrile. Review of systems: Constitutional: No reports of fatigue, fever, or chills Cardiovascular: No reports of chest pain or palpitations Respiratory: reports of shortness of breath GI: No reports of nausea, vomiting, or diarrhea : No reports of dysuria or retention Neurovascular: No reports of weakness or numbness All medications have been reviewed Active Medications Acetaminophen (Acetaminophen Tab 325 Mg Tab) 650 mg PO Q6HR PRN PRN Reason: Mild Pain or Fever > 100.5 Albuterol Sulfate (Albuterol Hfa Inhaler) 2 puff INHALATION RT-QID PRN PRN Reason: Shortness Of Breath Or Wheezing Last Admin: 09/23/21 03:32 Dose: 2 puff Documented by: Albuterol Sulfate (Albuterol Hfa Inhaler) 2 puff INHALATION RT-QID [facility] Last Admin: 09/29/21 12:08 Dose: 2 puff Documented by: Ascorbic Acid (Ascorbic Acid 500 Mg Tab) 1,000 mg PO DAILY [facility] Last Admin: 09/29/21 09:23 Dose: 1,000 mg Documented by: Baricitinib (Baricitinib 2 Mg Tablet) 4 mg PO DAILY [facility] Stop: 10/06/21 09:01 Last Admin: 09/29/21 09:23 Dose: 4 mg Documented by: Benzocaine/Menthol (Benzocaine/Menthol Lozeng 1 Each Lozenge) 1 each MUCOUS MEM Q4HR PRN PRN Reason: Cough Calcium Carbonate/Glycine (Calcium Carbonate 500 Mg Chewable) 500 mg PO TID PRN PRN Reason: Heartburn Cholecalciferol (Cholecalciferol 25 Mcg (1000 Iu) Tablet) 50 mcg PO DAILY [facility] Last Admin: 09/29/21 09:23 Dose: 50 mcg Documented by: Dexamethasone Sodium Phosphate (Dexamethasone Sod Phosphate 10 Mg/Ml 1 Ml Vial) 6 mg IVP DAILY [facility] Last Admin: 09/29/21 09:23 Dose: 6 mg Documented by: Enoxaparin Sodium (Enoxaparin 40 Mg/0.4 Ml Syringe) 40 mg SQ DAILY [facility] Last Admin: 09/29/21 09:24 Dose: 40 mg Documented by: Sodium Chloride (Saline 0.9%) 1,000 mls @ 75 mls/hr IV .[id number] [facility] Last Admin: 09/29/21 06:26 Dose: 75 mls/hr Documented by: Insulin Aspart (Insulin Aspart (Novolog) 100 Unit/Ml Vial) 0 unit SQ ACHS [facility]; Protocol Last Admin: 09/29/21 12:22 Dose: 2 unit Documented by: Naloxone HCl (Naloxone 0.4 Mg/Ml 1 Ml Vial) 0.2 mg IV Q2M PRN PRN Reason: Opioid Reversal Ondansetron HCl (Ondansetron 4 Mg/2 Ml Vial) 4 mg IVP Q6HR PRN PRN Reason: Nausea And Vomiting Pantoprazole Sodium (Pantoprazole 40 Mg Tablet) 40 mg PO AC-BID [facility] Last Admin: 09/29/21 06:27 Dose: 40 mg Documented by: Sodium Chloride (Sodium Chloride 0.65% Nasal [place] 44 Ml Btl) 2 spray NASAL QID PRN PRN Reason: Congestion Last Admin: 09/27/21 03:47 Dose: 2 spray Documented by: Zinc Sulfate (Zinc Sulfate 220 Mg Cap) 220 mg PO DAILY [facility] Last Admin: 09/29/21 09:23 Dose: 220 mg Documented by: Physical exam: GENERAL: The patient is alert and oriented x3, tachypneic, Well developed, well nourished. HEENT: Pupils are round and equally reacting to light. EOMI. No scleral icterus. No conjunctival pallor. Normocephalic, atraumatic. No pharyngeal erythema. No thyromegaly. CARDIOVASCULAR: S1 and S2 present. No murmurs, rubs, or gallops. PULMONARY: Chest is clear to auscultation, no wheezing or crackles. Diminished aeration, lungs are tight. ABDOMEN: Soft, nontender, nondistended, normoactive bowel sounds. No palpable organomegaly. MUSCULOSKELETAL: No joint swelling or deformity. EXTREMITIES: No cyanosis, clubbing, or pedal edema. NEUROLOGICAL: Gross neurological examination did not reveal any focal deficits. SKIN: No rashes. Assessment: Acute hypoxic respiratory failure secondary to COVID-19 pneumonia Elevated d dimer, CTA negative for pulmonary embolism Hyponatremia secondary to poor oral intake and dehydration, improving Fever secondary to COVID pneumonia Elevated LDH, CRP secondary to inflammation from COVID infection Hyperglycemia, A1C 6.5, patient is most likely a type 2 diabetic, continue with novolog Elevated liver enzymes, monitor History of nicotine dependence - 25 to 30 year pack history History of kidney stones GI Prophylaxis: Protonix DVT Prophylaxis: Lovenox Full Code Plan: Patient is maintained on IV dexamethasone along with vitamin and zinc supplements and will continue. Patient was started on Baricitinib with pulmonary following. Patient currently eating FiO2 as tolerated and maintaining oxygen saturation at 90% on 10 L high flow nasal cannula. Continue to encourage incentive spirometer use at least 10 times every hour while awake and wean FiO2 as tolerated. Encouraged increased activity as tolerated. Recommend continue with Accu-Cheks and close monitoring of blood sugars and will continue sliding scale. Will repeat a.m. labs along with inflammatory markers and continue to monitor closely. Continue Steroids, zinc, and covid vitamins, KATHY Objective - Vital Signs Vital signs: Vital Signs Temp 97.7 F 09/29/21 08:00 Pulse 83 09/29/21 12:00 Resp 16 09/29/21 12:00 BP 136/79 09/29/21 12:00 Pulse Ox 94 L 09/29/21 12:11 Intake & Output 09/28/21 09/29/21 09/29/21 18:59 06:59 18:59 Intake Total 180 240 Output Total 900 250 Balance 180 -660 -250 Weight 115.5 kg Intake: Oral 180 240 Output: Urine 900 250 Other: Voiding Method Urinal Urinal # Voids 1 # Bowel Movements 1 - Labs CBC & Chem 7: 09/29/21 07:06 09/29/21 07:06 Labs: Abnormal Lab Results - Last 24 Hours (Table) 09/28/21 09/28/21 09/29/21 Range/Units 16:45 20:43 07:06 Metamyelocytes # (Man) (0) k/uL Myelocytes # (Manual) (0) k/uL D-Dimer 2.17 H (<0.60) mg/L FEU Sodium (137-145) mmol/L POC Glucose (mg/dL) 203 H 167 H (75-99) mg/dL Calcium (8.4-10.2) mg/dL ALT (4-49) U/L Lactate Dehydrogenase (313-618) U/L C-Reactive Protein (<1.0) mg/dL Total Protein (6.3-8.2) g/dL Albumin (3.5-5.0) g/dL 09/29/21 09/29/2121 Range/Units 07:06 07:06 12:00 Metamyelocytes # (Man) 0.15 H (0) k/uL Myelocytes # (Manual) 0.08 H (0) k/uL D-Dimer (<0.60) mg/L FEU Sodium 136 L (137-145) mmol/L POC Glucose (mg/dL) 156 H (75-99) mg/dL Calcium 8.1 L (8.4-10.2) mg/dL ALT 128 H (4-49) U/L Lactate Dehydrogenase 1121 H (313-618) U/L C-Reactive Protein 2.8 H (<1.0) mg/dL Total Protein 5.7 L (6.3-8.2) g/dL Albumin 2.9 L (3.5-5.0) g/dL
--- NOTE | 2021-09-29 15:20 | P.PN ---
Subjective Progress Note Date: 09/29/21 Acute hypoxic respiratory failure secondary to COVID-19 pneumonia 61-year-old male who follows with Dr. Farah. He presents to the [facility] after having symptoms of shortness of breath, cough, fever, body aches and chills since last Tuesday. He has been getting significantly worse since, and became hypoxic with a pulse ox in the 80s on room air at home. He tested positive for COVID on the 09/17/21. Patient did receive his first dose of Moderna vaccination on September 07. Patient and at the bedside denying any other positive Covid in the family. Patient's past medical history significant for hernia disc, kidney stones, questionable sleep apnea, prediabetic. Patient is a former smoker, he quit smoking in 2007 and smoked 1 pack per day or less for 25- 30 years. He denies any history of COPD and is not using oxygen at home. Patient is not taking any prescribed medications at home and his states that there are no major underlying health conditions. Patient denies any drug use or alcohol use. admission showed white count of 6.6, platelet 133, d-dimer 5.39, sodium 134, glucose 162, ast 72, troponin negative. LDH is 1236 and his CRP is 21.3. Chest x-ray on admission shows patchy bilateral interstitial pneumonia. Chest CTA shows no evidence of pulmonary embolism. Bilateral interstitial and airspace pneumonia. Mediastinal and bronchial lymph nodes consistent with inflammatory disease. Vitals show a temperature of 100.5 on admission, normal sinus rhythm in the 80s, respiratory rate in the 20s, blood pressure 124/84, he is 94% on 5 L nasal cannula. Patient to receive an infusion of Bamlanivimab in the [facility]. He also received a 1.3 with a bolus. Patient was started on IV Decadron, zinc, Covid vitamins, Lovenox for prophylaxis. We did consult pulmonary due to the hypoxia. 09/25/2021 Patient is evaluated today resting that. He is on a 15 L high flow cannula as well as a 15 L nonrebreather. Patient is a slightly having some shortness of breath and difficulty taking a deep breath. He is currently denying any chest pain, chest pressure, nausea vomiting or diarrhea. He does have pain with deep inspiration and expiration. Patient is being followed closely by pulmonary services. Labs today show white count 10.9, d-dimer of 2 today, LDH 1677 and CRP of 3. Metabolic panel pending from today. Patient's oxygen saturation is 97% on 15 L; pulse of 89 and temperature 90.7 0.90FNC, blood pressure stable at 134/72. 09/26/2021 Patient is seen and evaluated and discussed with nursing staff; patient remains on oxygen via HFNC and nonrebreather mask; continues to require 15 L of oxygen Vital signs are reviewed temperature 97.7, pulse 87, respiration 24 blood pressure 142/76 with O2 saturation 94% White count 7.6, he will 15.4, hematocrit 44.5, and platelet count 305,000. D- dimer is 2.69. Sodium 136, potassium 4.3, chlorides 103, CO2 26, anion gap 7, BUN 23, and creatinine 0.65. LDH is 1579. C-reactive protein is 4. Chest x- ray continues to show diffuse bilateral infiltrates, with no significant change from prior x-rays. Patient remains on Decadron, Lovenox, vitamin C, vitamin D and zinc sulfate along with KATHY; patient is making slow progress with oxygen saturation improving slowly 09/27/2021 Patient is seen and evaluated in follow-up; currently on 10 L high flow nasal cannula oxygen; not using nonrebreather mask anymore; keeping O2 saturation greater than 92% Vital signs review show temperature 97.8, pulse 82, respiration 20 and blood pressure 132/87 Labs today include a white count 9.3, hemoglobin 15.6, hematocrit 44.3, and a platelet count 344,000. Sodium 135, potassium 4.1, chlorides 104, CO2 25, anion gap 6, BUN 20, creatinine 0.66. Calcium 8.2. AST 69 with an ALT 166. The chest x-ray from yesterday showed bilateral low lung volumes, and diffuse bilateral infiltrates. Remains on usual medications including Decadron, Lovenox, vitamin C, vitamin D3, zinc, and KATHY. Self-proning is encouraged 09/28/2021 Patient is seen in follow-up this morning and being followed closely by pulmonary. Patient discontinued on 10 L high flow and weaning as tolerated. Patient continues with Covid vitamins along with IV dexamethasone and baricitinib and will continue. Patient has incentive spirometer at the bedside and encourage the patient to use at least 10 times every hour while awake. Continue to monitor blood sugars closely. Patient denies chest pain or palpitations. Patient is afebrile. 09/28/2021 Patient seen today and currently maintained on 8-9 L high flow and weaning as tolerated. Patient denies any worsening shortness of breath and is tolerating the weaning at this time. Pulmonary is following closely and patient is maintained on Baracitinib. Labs: White blood count is 7.6, hemoglobin is 14.6, platelets are 418, d-dimer is 2.17, sodium is 136, potassium 4.3, creatinine 0.7, calcium 8.1 ALT 128, LDH 1121, CRP 2.8 Review of systems: Constitutional: No reports of fatigue, fever, or chills Cardiovascular: No reports of chest pain or palpitations Respiratory: reports of shortness of breath, reports feeling less short of b reath today GI: No reports of nausea, vomiting, or diarrhea : No reports of dysuria or retention Neurovascular: No reports of weakness or numbness All medications have been reviewed Active Medications Acetaminophen (Acetaminophen Tab 325 Mg Tab) 650 mg PO Q6HR PRN PRN Reason: Mild Pain or Fever > 100.5 Albuterol Sulfate (Albuterol Hfa Inhaler) 2 puff INHALATION RT-QID PRN PRN Reason: Shortness Of Breath Or Wheezing Last Admin: 09/23/21 03:32 Dose: 2 puff Documented by: Albuterol Sulfate (Albuterol Hfa Inhaler) 2 puff INHALATION RT-QID [facility] Last Admin: 09/29/21 12:08 Dose: 2 puff Documented by: Ascorbic Acid (Ascorbic Acid 500 Mg Tab) 1,000 mg PO DAILY [facility] Last Admin: 09/29/21 09:23 Dose: 1,000 mg Documented by: Baricitinib (Baricitinib 2 Mg Tablet) 4 mg PO DAILY [facility] Stop: 10/06/21 09:01 Last Admin: 09/29/21 09:23 Dose: 4 mg Documented by: Benzocaine/Menthol (Benzocaine/Menthol Lozeng 1 Each Lozenge) 1 each MUCOUS MEM Q4HR PRN PRN Reason: Cough Calcium Carbonate/Glycine (Calcium Carbonate 500 Mg Chewable) 500 mg PO TID PRN PRN Reason: Heartburn Cholecalciferol (Cholecalciferol 25 Mcg (1000 Iu) Tablet) 50 mcg PO DAILY [facility] Last Admin: 09/29/21 09:23 Dose: 50 mcg Documented by: Dexamethasone Sodium Phosphate (Dexamethasone Sod Phosphate 10 Mg/Ml 1 Ml Vial) 6 mg IVP DAILY [facility] Last Admin: 09/29/21 09:23 Dose: 6 mg Documented by: Enoxaparin Sodium (Enoxaparin 40 Mg/0.4 Ml Syringe) 40 mg SQ DAILY [facility] Last Admin: 09/29/21 09:24 Dose: 40 mg Documented by: Sodium Chloride (Saline 0.9%) 1,000 mls @ 75 mls/hr IV .[id number] [facility] Last Admin: 09/29/21 06:26 Dose: 75 mls/hr Documented by: Insulin Aspart (Insulin Aspart (Novolog) 100 Unit/Ml Vial) 0 unit SQ ACHS [facility]; Protocol Last Admin: 09/29/21 12:22 Dose: 2 unit Documented by: Naloxone HCl (Naloxone 0.4 Mg/Ml 1 Ml Vial) 0.2 mg IV Q2M PRN PRN Reason: Opioid Reversal Ondansetron HCl (Ondansetron 4 Mg/2 Ml Vial) 4 mg IVP Q6HR PRN PRN Reason: Nausea And Vomiting Pantoprazole Sodium (Pantoprazole 40 Mg Tablet) 40 mg PO AC-BID [facility] Last Admin: 09/29/21 06:27 Dose: 40 mg Documented by: Sodium Chloride (Sodium Chloride 0.65% Nasal [place] 44 Ml Btl) 2 spray NASAL QID PRN PRN Reason: Congestion Last Admin: 09/27/21 03:47 Dose: 2 spray Documented by: Zinc Sulfate (Zinc Sulfate 220 Mg Cap) 220 mg PO DAILY [facility] Last Admin: 09/29/21 09:23 Dose: 220 mg Documented by: Physical exam: GENERAL: The patient is alert and oriented x3, Well developed, well nourished. Currently on 9 L high flow HEENT: Pupils are round and equally reacting to light. EOMI. No scleral icterus. No conjunctival pallor. Normocephalic, atraumatic. No pharyngeal erythema. No thyromegaly. CARDIOVASCULAR: S1 and S2 present. No murmurs, rubs, or gallops. PULMONARY: Diminished breath sounds bilaterally with some coarse rhonchi noted throughout ABDOMEN: Soft, nontender, nondistended, normoactive bowel sounds. No palpable organomegaly. MUSCULOSKELETAL: No joint swelling or deformity. EXTREMITIES: No cyanosis, clubbing, or pedal edema. NEUROLOGICAL: Gross neurological examination did not reveal any focal deficits. SKIN: No rashes. Assessment: Acute hypoxic respiratory failure secondary to COVID-19 pneumonia Elevated d dimer, CTA negative for pulmonary embolism Hyponatremia secondary to poor oral intake and dehydration, improved Fever secondary to COVID pneumonia, improved Elevated LDH, CRP secondary to inflammation from COVID infection Hyperglycemia, A1C 6.5, patient is most likely a type 2 diabetic, continue with sliding scale Elevated liver enzymes, monitor History of nicotine dependence - 25 to 30 year pack history History of kidney stones GI Prophylaxis: Protonix DVT Prophylaxis: Lovenox Full Code Plan: Patient is maintained on IV dexamethasone along with vitamin and zinc supplements and will continue. Patient continues on Baricitinib with pulmonary following. Patient currently eating FiO2 as tolerated and maintaining oxygen saturation at 94% on 9 L high flow nasal cannula. Continue to encourage incentive spirometer use at least 10 times every hour while awake and wean FiO2 as tolerated. Encouraged increased activity as tolerated. Recommend continue with Accu-Cheks and close monitoring of blood sugars and will continue sliding scale. Will continue to monitor closely. Objective - Vital Signs Vital signs: Vital Signs Temp 97.7 F 09/29/21 08:00 Pulse 83 09/29/21 12:00 Resp 16 09/29/21 12:00 BP 136/79 09/29/21 12:00 Pulse Ox 94 L 09/29/21 12:11 Intake & Output 09/28/21 09/29/21 09/29/21 18:59 06:59 18:59 Intake Total 180 240 Output Total 900 250 Balance 180 -660 -250 Weight 115.5 kg Intake: Oral 180 240 Output: Urine 900 250 Other: Voiding Method Urinal Urinal # Voids 1 # Bowel Movements 1 - Labs CBC & Chem 7: 09/29/21 07:06 09/29/21 07:06 Labs: Abnormal Lab Results - Last 24 Hours (Table) 09/28/21 09/28/21 09/29/21 Range/Units 16:45 20:43 07:06 Metamyelocytes # (Man) (0) k/uL Myelocytes # (Manual) (0) k/uL D-Dimer 2.17 H (<0.60) mg/L FEU Sodium (137-145) mmol/L POC Glucose (mg/dL) 203 H 167 H (75-99) mg/dL Calcium (8.4-10.2) mg/dL ALT (4-49) U/L Lactate Dehydrogenase (313-618) U/L C-Reactive Protein (<1.0) mg/dL Total Protein (6.3-8.2) g/dL Albumin (3.5-5.0) g/dL 09/29/21 09/29/21 09/29/21 Range/Units 07:06 07:06 12:00 Metamyelocytes # (Man) 0.15 H (0) k/uL Myelocytes # (Manual) 0.08 H (0) k/uL D-Dimer (<0.60) mg/L FEU Sodium 136 L (137-145) mmol/L POC Glucose (mg/dL) 156 H (75-99) mg/dL Calcium 8.1 L (8.4-10.2) mg/dL ALT 128 H (4-49) U/L Lactate Dehydrogenase 1121 H (313-618) U/L C-Reactive Protein 2.8 H (<1.0) mg/dL Total Protein 5.7 L (6.3-8.2) g/dL Albumin 2.9 L (3.5-5.0) g/dL
[2021-09-29 17:01] LABS: Glucose,Whole Blood 150 mg/dL (75-99)
[2021-09-29 20:13] LABS: Glucose,Whole Blood 124 mg/dL (75-99)
[2021-09-29] MEDS: BENZOCAINE/MENTHOL LOZENG 1 EACH LOZENGE MUCOUS MEM PRN (22:16)
[2021-09-30] MEDS: PANTOPRAZOLE 40 MG TABLET PO SCH ×2 (05:48→16:45)
[2021-09-30] MEDS: SODIUM CHLORIDE 0.9% 1,000 ML IV SCH ×2 (05:48→22:10)
[2021-09-30 05:54] LABS: Glucose,Whole Blood 107 mg/dL (75-99)
[2021-09-30] MEDS: INSULIN ASPART (NovoLOG) 100 UNIT/ML VIAL SQ SCH ×4 (05:59→22:09)
[2021-09-30] MEDS: ALBUTEROL HFA INHALER INHALATION SCH ×4 (08:27→20:19)
[2021-09-30 08:32] LABS: Basophils % (A) 0 %; Eosinophils % (A) 1 %; HCT 46.4 % (39.0-53.0); HGB 15.4 gm/dL (13.0-17.5); Lymphocytes # (A) 1.2 k/uL (1.0-4.8); Lymphocytes % (A) 14 %; MCH 29.8 pg (25.0-35.0); MCHC 33.1 g/dL (31.0-37.0); MCV 90.1 fL (80.0-100.0); Mean Platelet Volume 7.5; Monocytes # (A) 0.7 k/uL (0-1.0); Monocytes % (A) 8 %; Neutrophils # (A) 6.4 k/uL (1.3-7.7); Neutrophils % (A) 75 %; Platelet Count 509 k/uL (150-450); RBC 5.15 m/uL (4.30-5.90); RDW 12.8 % (11.5-15.5); WBC 8.5 k/uL (3.8-10.6)
[2021-09-30] MEDS: ENOXAPARIN 40 MG/0.4 ML SYRINGE SQ SCH (08:44)
[2021-09-30 08:45] LABS: ALT 128 U/L (4-49); AST 45 U/L (17-59); African American GFR (CKD) >90 (>60 ml/min/1.73 sqM); Albumin 3.3 g/dL (3.5-5.0); Alkaline Phosphatase 53 U/L (38-126); Anion Gap 6 mmol/L; Blood Urea Nitrogen 19 mg/dL (9-20); Calcium 8.9 mg/dL (8.4-10.2); Carbon Dioxide 31 mmol/L (22-30); Chloride 101 mmol/L (98-107); Glucose 97 mg/dL (74-99); Non-African American GFR(CKD) >90 (>60 ml/min/1.73 sqM); Potassium 4.8 mmol/L (3.5-5.1); Sodium 138 mmol/L (137-145); Total Bilirubin 0.6 mg/dL (0.2-1.3); Total Protein 6.4 g/dL (6.3-8.2)
[2021-09-30] MEDS: DEXAMETHASONE SOD PHOSPHATE 10 MG/ML 1 ML VIAL IVP SCH (08:45)
[2021-09-30] MEDS: CHOLECALCIFEROL 25 MCG (1000 IU) TABLET PO SCH (08:45)
[2021-09-30] MEDS: ASCORBIC ACID 500 MG TAB PO SCH (08:45)
[2021-09-30] MEDS: BARICITINIB 2 MG TABLET PO SCH (08:45)
[2021-09-30] MEDS: ZINC SULFATE 220 MG CAP PO SCH (08:45)
--- NOTE | 2021-09-30 10:41 | P.PN ---
Subjective Progress Note Date: 09/30/21 61-year-old male patient admitted on 09/22/2021 for COVID-19 related pneumonia. The patient has tested positive on 09/17/2021. The patient had progressively gotten worse and he came into the hospital after he became hypoxic. He was on high flow oxygen along with a nonrebreather facemask and the CAT scan of the chest showed no evidence of any pulmonary embolism and there was bilateral interstitial and airspace pneumonia. The patient was treated with a combination of Decadron Baricitinib and anticoagulation with Lovenox. CT angiogram was negative for pulmonary embolism. It was positive for pneumonia. He was slowly improving and the patient has been weaned down to 10 L of oxygen by nasal can nula. On today's evaluation of 09/28/2021, the patient is being seen for a follow-up. No new complaints otherwise. He remains on oxygen at 10 L per minute nasal cannula. The chest x-rays showing stable bilateral pulmonary infiltrates, probably slight improvement on the left compared to the earlier chest x-ray. The lung volumes are still small. In terms of the blood work, white cell count at 6.4, electrolytes are normal, renal function is normal, most recent LDH level was from 09/26/2021 and it was at 1579 and the d-dimer is at 2.69. He is afebrile. On today's evaluation of 09/29/2021, the patient is on online liters of oxygen by nasal cannula. His current pulse ox is around 90%. He has taken off his 100% on a beta facemasks. He remains on a combination of Decadron and Baricitin ib and the patient is also on anticoagulation with Lovenox. I noted his inflammatory markers. Repeat markers showed that the levels are essentially improving. LDH level was down to 1121 and the CRP level is down to 2.8. The rest of the electrodes are normal. D-dimer is at 2.1. As such, all of the inflammatory markers are improving. The patient is afebrile. No altered mentation. No nausea or vomiting. No other significant events overnight. No fever. 09/30/2021, the patient is being seen for a follow-up. Doing extremely well. He is being weaned off oxygen and the patient is currently on 8 L of oxygen by nasal cannula. The patient is doing well for now. He remains on accommodation Decadron and Baricitinib. The patient is also taking anticoagulation with Lovenox. No new complaints otherwise for now. He is on IV fluids at a rate of 75 mL an hour and the fluid will be cut down to KVO. No chest pain. No altered mentation.The blood work from today shows a white cell count of 8.4 with a hemoglobin of 15.4, sodium is at 138, BUN is at 19 with a creatinine of 0.7. Glucose is 107. Objective - Vital Signs Vital signs: Vital Signs Temp 98.2 F 09/30/21 08:00 Pulse 88 09/30/21 08:00 Resp 18 09/30/21 08:00 BP 124/75 09/30/21 08:00 Pulse Ox 97 09/30/21 08:00 Intake & Output 09/29/21 09/30/21 09/30/21 18:59 06:59 18:59 Intake Total 240 358 Output Total 250 Balance -10 358 Weight 117 kg Intake: Oral 240 358 Output: Urine 250 Other: Voiding Method Urinal Urinal # Voids 1 - Exam Mild conversational dyspnea. Oriented 3. The patient's currently on 9 L high flow nasal O2. Saturations are 92%. HEENT examination is grossly unremarkable. Neck supple. Full range of motion. No adenopathy thyromegaly or neck vein distention. Cardiovascular examination reveals regular rhythm rate. S1-S2 normal. No S3 or S4. No discernible murmur noted. Heart rate 92 bpm. Heart sounds are distant. Lungs reveal coarse bilateral rhonchi. Bibasilar crackles. Breath sounds equal bilaterally. No wheezes. Breath sounds are generally a bit improved. Abdomen soft bowel sounds are heard. No masses or tenderness. Extremities are intact. No cyanosis clubbing or edema. Skin is without rash or lesion. Neurologic examination is brief but nonfocal. - Labs CBC & Chem 7: 09/30/21 07:49 09/30/21 07:49 Labs: Abnormal Lab Results - Last 24 Hours (Table) 09/29/21 09/29/21 09/29/21 Range/Units 07:06 12:00 16:59 Plt Count (150-450) k/uL Metamyelocytes # (Man) 0.15 H (0) k/uL Myelocytes # (Manual) 0.08 H (0) k/uL Carbon Dioxide (22-30) mmol/L POC Glucose (mg/dL) 156 H 150 H (75-99) mg/dL ALT (4-49) U/L Albumin (3.5-5.0) g/dL 09/29/21 09/30/21 09/30/21 Range/Units 20:09 05:52 07:49 Plt Count 509 H (150-450) k/uL Metamyelocytes # (Man) (0) k/uL Myelocytes # (Manual) (0) k/uL Carbon Dioxide (22-30) mmol/L POC Glucose (mg/dL) 124 H 107 H (75-99) mg/dL ALT (4-49) U/L Albumin (3.5-5.0) g/dL 09/30/21 Range/Units 07:49 Plt Count (150-450) k/uL Metamyelocytes # (Man) (0) k/uL Myelocytes # (Manual) (0) k/uL Carbon Dioxide 31 H (22-30) mmol/L POC Glucose (mg/dL) (75-99) mg/dL ALT 128 H (4-49) U/L Albumin 3.3 L (3.5-5.0) g/dL Assessment and Plan Plan: 1 Acute hypoxemic respiratory failure secondary to coronavirus associated pneumonia. Note that the patient had a CTA at the time of the admission and showed bilateral pneumonia and there was No evidence of pulmonary embolism on CT angiogram. Currently on 8 L of oxygen by nasal cannula. Currently seeing a combination of Decadron and Baricitinib. She is clinically improving and oxygenation is improved slightly and currently is down to 8 L. Also, all of the extremity markers are improving. Patient has no other specific complaints. He remains on a combination of Decadron and Baricitinib. 2 History of degenerative disc disease. 3 History of kidney stones. 4 History of sleep apnea syndrome. 5 Obesity Plan Continue Decadron 6 mg IV every 24 hours in combination with Baricitinib 1 mg by mouth daily per protocol Continue Lovenox 40 mg subcu for DVT prophylaxis IV fluids to KVO Monitor inflammatory markers Wean down the FiO2 as tolerated to maintain a saturation above 90% Keep the patient on 9 L of oxygen by nasal cannula. We'll continue to follow make further recommendations based on her progress.
[2021-09-30 12:02] LABS: Glucose,Whole Blood 166 mg/dL (75-99)
[2021-09-30 16:43] LABS: Glucose,Whole Blood 159 mg/dL (75-99)
[2021-09-30 20:57] LABS: Glucose,Whole Blood 213 mg/dL (75-99)
[2021-09-30] MEDS ORDERED: TEMAZEPAM 15 MG CAP PO PRN (23:15)
[2021-09-30] MEDS ORDERED: MELATONIN 3 MG TABLET PO PRN (23:15)
--- NOTE | 2021-09-30 23:23 | P.PN ---
Subjective Progress Note Date: 09/30/21 Acute hypoxic respiratory failure secondary to COVID-19 pneumonia 61-year-old male who follows with Dr. Farah. He presents to the [facility] after having symptoms of shortness of breath, cough, fever, body aches and chills since last Tuesday. He has been getting significantly worse since, and became hypoxic with a pulse ox in the 80s on room air at home. He tested positive for COVID on the 09/17/21. Patient did receive his first dose of Moderna vaccination on September 07. Patient and at the bedside denying any other positive Covid in the family. Patient's past medical history significant for hernia disc, kidney stones, questionable sleep apnea, prediabetic. Patient is a former smoker, he quit smoking in 2007 and smoked 1 pack per day or less for 25- 30 years. He denies any history of COPD and is not using oxygen at home. Patient is not taking any prescribed medications at home and his states that there are no major underlying health conditions. Patient denies any drug use or alcohol use. admission showed white count of 6.6, platelet 133, d-dimer 5.39, sodium 134, glucose 162, ast 72, troponin negative. LDH is 1236 and his CRP is 21.3. Chest x-ray on admission shows patchy bilateral interstitial pneumonia. Chest CTA shows no evidence of pulmonary embolism. Bilateral interstitial and airspace pneumonia. Mediastinal and bronchial lymph nodes consistent with inflammatory disease. Vitals show a temperature of 100.5 on admission, normal sinus rhythm in the 80s, respiratory rate in the 20s, blood pressure 124/84, he is 94% on 5 L nasal cannula. Patient to receive an infusion of Bamlanivimab in the [facility]. He also received a 1.3 with a bolus. Patient was started on IV Decadron, zinc, Covid vitamins, Lovenox for prophylaxis. We did consult pulmonary due to the hypoxia. 09/25/2021 Patient is evaluated today resting that. He is on a 15 L high flow cannula as well as a 15 L nonrebreather. Patient is a slightly having some shortness of breath and difficulty taking a deep breath. He is currently denying any chest pain, chest pressure, nausea vomiting or diarrhea. He does have pain with deep inspiration and expiration. Patient is being followed closely by pulmonary services. Labs today show white count 10.9, d-dimer of 2 today, LDH 1677 and CRP of 3. Metabolic panel pending from today. Patient's oxygen saturation is 97% on 15 L; pulse of 89 and temperature 90.7 0.90FNC, blood pressure stable at 134/72. 09/26/2021 Patient is seen and evaluated and discussed with nursing staff; patient remains on oxygen via HFNC and nonrebreather mask; continues to require 15 L of oxygen Vital signs are reviewed temperature 97.7, pulse 87, respiration 24 blood pressure 142/76 with O2 saturation 94% White count 7.6, he will 15.4, hematocrit 44.5, and platelet count 305,000. D- dimer is 2.69. Sodium 136, potassium 4.3, chlorides 103, CO2 26, anion gap 7, BUN 23, and creatinine 0.65. LDH is 1579. C-reactive protein is 4. Chest x- ray continues to show diffuse bilateral infiltrates, with no significant change from prior x-rays. Patient remains on Decadron, Lovenox, vitamin C, vitamin D and zinc sulfate along with KATHY; patient is making slow progress with oxygen saturation improving slowly 09/27/2021 Patient is seen and evaluated in follow-up; currently on 10 L high flow nasal cannula oxygen; not using nonrebreather mask anymore; keeping O2 saturation greater than 92% Vital signs review show temperature 97.8, pulse 82, respiration 20 and blood pressure 132/87 Labs today include a white count 9.3, hemoglobin 15.6, hematocrit 44.3, and a platelet count 344,000. Sodium 135, potassium 4.1, chlorides 104, CO2 25, anion gap 6, BUN 20, creatinine 0.66. Calcium 8.2. AST 69 with an ALT 166. The chest x-ray from yesterday showed bilateral low lung volumes, and diffuse bilateral infiltrates. Remains on usual medications including Decadron, Lovenox, vitamin C, vitamin D3, zinc, and KATHY. Self-proning is encouraged 09/28/2021 Patient is seen in follow-up this morning and being followed closely by pulmonary. Patient discontinued on 10 L high flow and weaning as tolerated. Patient continues with Covid vitamins along with IV dexamethasone and baricitinib and will continue. Patient has incentive spirometer at the bedside and encourage the patient to use at least 10 times every hour while awake. Continue to monitor blood sugars closely. Patient denies chest pain or palpitations. Patient is afebrile. 09/29/2021 Patient seen today and currently maintained on 8-9 L high flow and weaning as tolerated. Patient denies any worsening shortness of breath and is tolerating the weaning at this time. Pulmonary is following closely and patient is maintained on Baracitinib. 09/30/2021 Patient is seen this morning and weaning FI02 as tolerated. Patient is currently sitting up in the chair and states he is feeling slightly better. Patient is currently maintained on 8L HF NC. Pulmonary following and patient continues on Baricitinib, lovenox and vitamin supplements along with IV dexamethasone. Patient denies any worsening shortness of breath. Review of systems: Constitutional: No reports of fatigue, fever, or chills Cardiovascular: No reports of chest pain or palpitations Respiratory: reports of shortness of breath, reports feeling less short of b reath today and improving daily GI: No reports of nausea, vomiting, or diarrhea : No reports of dysuria or retention Neurovascular: No reports of weakness or numbness All medications have been reviewed Active Medications Acetaminophen (Acetaminophen Tab 325 Mg Tab) 650 mg PO Q6HR PRN PRN Reason: Mild Pain or Fever > 100.5 Albuterol Sulfate (Albuterol Hfa Inhaler) 2 puff INHALATION RT-QID PRN PRN Reason: Shortness Of Breath Or Wheezing Last Admin: 09/23/21 03:32 Dose: 2 puff Documented by: Albuterol Sulfate (Albuterol Hfa Inhaler) 2 puff INHALATION RT-QID [facility] Last Admin: 09/30/21 20:19 Dose: 2 puff Documented by: Ascorbic Acid (Ascorbic Acid 500 Mg Tab) 1,000 mg PO DAILY [facility] Last Admin: 09/30/21 08:45 Dose: 1,000 mg Documented by: Baricitinib (Baricitinib 2 Mg Tablet) 4 mg PO DAILY [facility] Stop: 10/06/21 09:01 Last Admin: 09/30/21 08:45 Dose: 4 mg Documented by: Benzocaine/Menthol (Benzocaine/Menthol Lozeng 1 Each Lozenge) 1 each MUCOUS MEM Q4HR PRN PRN Reason: Cough Last Admin: 09/29/21 22:16 Dose: 1 each Documented by: Calcium Carbonate/Glycine (Calcium Carbonate 500 Mg Chewable) 500 mg PO TID PRN PRN Reason: Heartburn Cholecalciferol (Cholecalciferol 25 Mcg (1000 Iu) Tablet) 50 mcg PO DAILY [facility] Last Admin: 09/30/21 08:45 Dose: 50 mcg Documented by: Dexamethasone Sodium Phosphate (Dexamethasone Sod Phosphate 10 Mg/Ml 1 Ml Vial) 6 mg IVP DAILY [facility] Last Admin: 09/30/21 08:45 Dose: 6 mg Documented by: Enoxaparin Sodium (Enoxaparin 40 Mg/0.4 Ml Syringe) 40 mg SQ DAILY [facility] Last Admin: 09/30/21 08:44 Dose: 40 mg Documented by: Sodium Chloride (Saline 0.9%) 1,000 mls @ 10 mls/hr IV .Q24H [facility] Last Admin: 09/30/21 22:10 Dose: 10 mls/hr Documented by: Insulin Aspart (Insulin Aspart (Novolog) 100 Unit/Ml Vial) 0 unit SQ ACHS [facility]; Protocol Last Admin: 09/30/21 22:09 Dose: 4 unit Documented by: Naloxone HCl (Naloxone 0.4 Mg/Ml 1 Ml Vial) 0.2 mg IV Q2M PRN PRN Reason: Opioid Reversal Ondansetron HCl (Ondansetron 4 Mg/2 Ml Vial) 4 mg IVP Q6HR PRN PRN Reason: Nausea And Vomiting Pantoprazole Sodium (Pantoprazole 40 Mg Tablet) 40 mg PO AC-BID [facility] Last Admin: 09/30/21 16:45 Dose: 40 mg Documented by: Sodium Chloride (Sodium Chloride 0.65% Nasal [place] 44 Ml Btl) 2 spray NASAL QID PRN PRN Reason: Congestion Last Admin: 09/27/21 03:47 Dose: 2 spray Documented by: Zinc Sulfate (Zinc Sulfate 220 Mg Cap) 220 mg PO DAILY [facility] Last Admin: 09/30/21 08:45 Dose: 220 mg Documented by: Physical exam: GENERAL: The patient is alert and oriented x3, Well developed, well nourished. Currently on 8 L high flow and titrating down HEENT: Pupils are round and equally reacting to light. EOMI. No scleral icterus. No conjunctival pallor. Normocephalic, atraumatic. No pharyngeal erythema. No thyromegaly. CARDIOVASCULAR: S1 and S2 present. No murmurs, rubs, or gallops. PULMONARY: Diminished breath sounds bilaterally with some coarse rhonchi noted throughout ABDOMEN: Soft, nontender, nondistended, normoactive bowel sounds. No palpable organomegaly. MUSCULOSKELETAL: No joint swelling or deformity. EXTREMITIES: No cyanosis, clubbing, or pedal edema. NEUROLOGICAL: Gross neurological examination did not reveal any focal deficits. SKIN: No rashes. Assessment: Acute hypoxic respiratory failure secondary to COVID-19 pneumonia Elevated d dimer, CTA negative for pulmonary embolism Hyponatremia secondary to poor oral intake and dehydration, improved Fever secondary to COVID pneumonia, improved Elevated LDH, CRP secondary to inflammation from COVID infection Hyperglycemia, A1C 6.5, patient is most likely a type 2 diabetic, continue with sliding scale Elevated liver enzymes, monitor History of nicotine dependence - 25 to 30 year pack history History of kidney stones GI Prophylaxis: Protonix DVT Prophylaxis: Lovenox Full Code Plan: Patient is maintained on IV dexamethasone along with vitamin and zinc supplements and will continue. Patient continues on Baricitinib with pulmonary following. Patient currently titrating FiO2 as tolerated and maintaining oxygen saturation at 95% on 7 L high flow nasal cannula. Continue to encourage incentive spirometer use at least 10 times every hour while awake and wean FiO2 as tolerated. Encouraged increased activity as tolerated. Recommend continue with Accu-Cheks and close monitoring of blood sugars and will continue sliding scale. Labs ordered for am Will continue to monitor closely. Objective - Vital Signs Vital signs: Vital Signs Temp 98.7 F 09/30/21 04:00 Pulse 73 09/30/21 04:00 Resp 18 09/30/21 04:00 BP 126/65 09/30/21 04:00 Pulse Ox 94 L 09/30/21 04:00 Intake & Output 09/29/21 09/30/21 09/30/21 18:59 06:59 18:59 Intake Total 240 358 Output Total 250 Balance -10 358 Weight 117 kg Intake: Oral 240 358 Output: Urine 250 Other: Voiding Method Urinal Urinal # Voids 1 - Labs CBC & Chem 7: 09/30/21 07:49 09/30/21 07:49 Labs: Abnormal Lab Results - Last 24 Hours (Table) 09/29/21 09/29/21 09/29/21 Range/Units 07:06 07:06 12:00 Plt Count (150-450) k/uL Metamyelocytes # (Man) 0.15 H (0) k/uL Myelocytes # (Manual) 0.08 H (0) k/uL Sodium 136 L (137-145) mmol/L Carbon Dioxide (22-30) mmol/L POC Glucose (mg/dL) 156 H (75-99) mg/dL Calcium 8.1 L (8.4-10.2) mg/dL ALT 128 H (4-49) U/L Lactate Dehydrogenase 1121 H (313-618) U/L C-Reactive Protein 2.8 H (<1.0) mg/dL Total Protein 5.7 L (6.3-8.2) g/dL Albumin 2.9 L (3.5-5.0) g/dL 09/29/21 09/29/21 09/30/21 Range/Units 16:59 20:09 05:52 Plt Count (150-450) k/uL Metamyelocytes # (Man) (0) k/uL Myelocytes # (Manual) (0) k/uL Sodium (137-145) mmol/L Carbon Dioxide (22-30) mmol/L POC Glucose (mg/dL) 150 H 124 H 107 H (75-99) mg/dL Calcium (8.4-10.2) mg/dL ALT (4-49) U/L Lactate Dehydrogenase (313-618) U/L C-Reactive Protein (<1.0) mg/dL Total Protein (6.3-8.2) g/dL Albumin (3.5-5.0) g/dL 09/30/21 09/30/21 Range/Units 07:49 07:49 Plt Count 509 H (150-450) k/uL Metamyelocytes # (Man) (0) k/uL Myelocytes # (Manual) (0) k/uL Sodium (137-145) mmol/L Carbon Dioxide 31 H (22-30) mmol/L POC Glucose (mg/dL) (75-99) mg/dL Calcium (8.4-10.2) mg/dL ALT 128 H (4-49) U/L Lactate Dehydrogenase (313-618) U/L C-Reactive Protein (<1.0) mg/dL Total Protein (6.3-8.2) g/dL Albumin 3.3 L (3.5-5.0) g/dL
[2021-10-01] MEDS: BENZOCAINE/MENTHOL LOZENG 1 EACH LOZENGE MUCOUS MEM PRN (00:08)
[2021-10-01] MEDS: PANTOPRAZOLE 40 MG TABLET PO SCH ×2 (06:25→16:54)
[2021-10-01 06:26] LABS: Glucose,Whole Blood 98 mg/dL (75-99)
[2021-10-01] MEDS: INSULIN ASPART (NovoLOG) 100 UNIT/ML VIAL SQ SCH ×4 (06:28→20:33)
[2021-10-01 07:45] LABS: Basophils % (A) 0 %; Eosinophils % (A) 0 %; HGB 14.7 gm/dL (13.0-17.5); Lymphocytes # (A) 1.2 k/uL (1.0-4.8); Lymphocytes % (A) 12 %; MCH 30.6 pg (25.0-35.0); MCHC 34.1 g/dL (31.0-37.0); MCV 89.7 fL (80.0-100.0); Mean Platelet Volume 7.6; Monocytes # (A) 0.8 k/uL (0-1.0); Monocytes % (A) 8 %; Neutrophils # (A) 7.8 k/uL (1.3-7.7); Neutrophils % (A) 78 %; Platelet Count 476 k/uL (150-450); RDW 12.8 % (11.5-15.5); WBC 9.9 k/uL (3.8-10.6)
[2021-10-01] MEDS: ALBUTEROL HFA INHALER INHALATION SCH ×4 (07:56→21:25)
[2021-10-01 08:02] LABS: ALT 127 U/L (4-49); AST 45 U/L (17-59); African American GFR (CKD) >90 (>60 ml/min/1.73 sqM); Albumin 3.1 g/dL (3.5-5.0); Alkaline Phosphatase 48 U/L (38-126); Anion Gap 5 mmol/L; Blood Urea Nitrogen 21 mg/dL (9-20); Calcium 8.7 mg/dL (8.4-10.2); Carbon Dioxide 32 mmol/L (22-30); Chloride 99 mmol/L (98-107); Glucose 93 mg/dL (74-99); Non-African American GFR(CKD) >90 (>60 ml/min/1.73 sqM); Potassium 4.6 mmol/L (3.5-5.1); Sodium 136 mmol/L (137-145); Total Bilirubin 0.6 mg/dL (0.2-1.3); Total Protein 5.9 g/dL (6.3-8.2)
[2021-10-01] MEDS: ASCORBIC ACID 500 MG TAB PO SCH (09:04)
[2021-10-01] MEDS: ENOXAPARIN 40 MG/0.4 ML SYRINGE SQ SCH (09:04)
[2021-10-01] MEDS: ZINC SULFATE 220 MG CAP PO SCH (09:05)
[2021-10-01] MEDS: CHOLECALCIFEROL 25 MCG (1000 IU) TABLET PO SCH (09:05)
[2021-10-01] MEDS: DEXAMETHASONE SOD PHOSPHATE 10 MG/ML 1 ML VIAL IVP SCH (09:05)
[2021-10-01] MEDS: BARICITINIB 2 MG TABLET PO SCH (09:13)
[2021-10-01 10:14] VITALS: RESP 18
[2021-10-01 11:49] LABS: Glucose,Whole Blood 192 mg/dL (75-99)
[2021-10-01 16:25] LABS: Glucose,Whole Blood 174 mg/dL (75-99)
--- NOTE | 2021-10-01 18:06 | P.PN ---
Subjective Progress Note Date: 10/01/21 On 10/01/2021 patient seen in follow-up on selective care unit, he is currently on 6 L of oxygen his pulse ox of 94%. He is doing good, he sitting up in a chair, feeling better, his FiO2 has been turned down to 4 L, and he is maintaining O2 saturations at 95%, no fever or chills, breathing is nonlabored, he does have exertional dyspnea, but recovers. He is awake and alert, there is no altered mentation. Today's labs have been reviewed, white blood cell count is 9.9, hemoglobin is 14.7, platelet count is 476, sodium is 136, potassium is 4.6, CO2 32, B1 is 21 creatinine 0.82. His LDH from 09/29/2021 was improving and is down to 1121, CRP was down to 2.8, which was also an improved value from admission. D-dimer is 2.17. Patient remains on Decadron 6 mg daily, Lovenox 40 mg daily, he remains on Baricitinib Objective - Vital Signs Vital signs: Vital Signs Temp 98.6 F 10/01/21 16:02 Pulse 78 10/01/21 16:02 Resp 18 10/01/21 16:02 BP 125/79 10/01/21 16:02 Pulse Ox 95 10/01/21 16:02 Intake & Output 09/30/21 10/01/21 10/01/21 18:59 06:59 18:59 Intake Total 098 919 7069 Output Total 1000 1200 Balance -402 480 -180 Weight 118 kg Intake: Oral 551 563 1338 Output: Urine 1000 1200 Other: Voiding Method Urinal # Bowel Movements 1 0 - Exam GENERAL EXAM: Alert, very pleasant, 61-year-old white male, currently on 4 L of oxygen and pulse ox 95%, comfortable in no apparent distress. HEAD: Normocephalic/atraumatic. EYES: Normal reaction of pupils, equal size. Conjunctiva pink, sclera white. NOSE: Clear with pink turbinates. THROAT: No erythema or exudates. NECK: No masses, no JVD, no thyroid enlargement, no adenopathy. CHEST: No chest wall deformity. Symmetrical expansion. LUNGS: Equal air entry with bibasilar crackles. CVS: Regular rate and rhythm, normal S1 and S2, no gallops, no murmurs, no rubs ABDOMEN: Soft, nontender. No hepatosplenomegaly, normal bowel sounds, no guarding or rigidity. EXTREMITIES: No clubbing, no edema, no cyanosis, 2+ pulses and upper and lower extremities. MUSCULOSKELETAL: Muscle strength and tone normal. SPINE: No scoliosis or deformity SKIN: No rashes CENTRAL NERVOUS SYSTEM: Alert and oriented -3. No focal deficits, tone is normal in all 4 extremities. PSYCHIATRIC: Alert and oriented -3. Appropriate affect. Intact judgment and insight. - Labs CBC & Chem 7: 10/01/21 06:47 10/01/21 06:41 Labs: Abnormal Lab Results - Last 24 Hours (Table) 09/30/21 10/01/21 10/01/21 Range/Units 20:55 06:41 06:47 Plt Count 476 H (150-450) k/uL Neutrophils # 7.8 H (1.3-7.7) k/uL Sodium 136 L (137-145) mmol/L Carbon Dioxide 32 H (22-30) mmol/L BUN 21 H (9-20) mg/dL POC Glucose (mg/dL) 213 H (75-99) mg/dL ALT 127 H (4-49) U/L Total Protein 5.9 L (6.3-8.2) g/dL Albumin 3.1 L (3.5-5.0) g/dL 10/01/21 10/01/21 Range/Units 11:48 16:24 Plt Count (150-450) k/uL Neutrophils # (1.3-7.7) k/uL Sodium (137-145) mmol/L Carbon Dioxide (22-30) mmol/L BUN (9-20) mg/dL POC Glucose (mg/dL) 192 H 174 H (75-99) mg/dL ALT (4-49) U/L Total Protein (6.3-8.2) g/dL Albumin (3.5-5.0) g/dL Assessment and Plan Plan: Assessment: #1. Acute hypoxic respiratory failure related to COVID-19 pneumonia. CTA chest showed bilateral pneumonia, no evidence of pulmonary embolism. Hypoxia has been improving, patient is on a combination of Decadron and Baricitinib. Clinically improving, FiO2 is currently down to 4 L #2. History of DJD #3. History of kidney stones #4. History of sleep apnea syndrome #5. Obesity #6. Elevated inflammatory markers, improving #6. Elevated d-dimer, showing no evidence of pulmonary embolism Plan: Continue current medical treatment Continue Baricitinib, and Decadron Continue lovenox Inflammatory markers are improving Patient is feeling better, FiO2 is currently down to 4 L If oxygen requirements remain low, and continued to improve we may consider discharge home on home oxygen in the next 24-48 hours I performed a history & physical examination of the patient and discussed their management with my nurse practitioner, Jenniffer Cao. I reviewed the nurse practitioner's note and agree with the documented findings and plan of care. Lung sounds are positive for diffuse rales throughout the lung ibarra. The findings and the impression was discussed with the patient. I attest to the documentation by the nurse practitioner. Time with Patient: Less than 30
[2021-10-01 20:12] LABS: Glucose,Whole Blood 155 mg/dL (75-99)
[2021-10-01] MEDS: SODIUM CHLORIDE 0.9% 1,000 ML IV SCH (23:28)
--- NOTE | 2021-10-02 00:41 | P.PN ---
Subjective Progress Note Date: 10/02/21 Acute hypoxic respiratory failure secondary to COVID-19 pneumonia 61-year-old male who follows with Dr. Farah. He presents to the [facility] after having symptoms of shortness of breath, cough, fever, body aches and chills since last Tuesday. He has been getting significantly worse since, and became hypoxic with a pulse ox in the 80s on room air at home. He tested positive for COVID on the 09/17/21. Patient did receive his first dose of Moderna vaccination on September 07. Patient and at the bedside denying any other positive Covid in the family. Patient's past medical history significant for hernia disc, kidney stones, questionable sleep apnea, prediabetic. Patient is a former smoker, he quit smoking in 2007 and smoked 1 pack per day or less for 25- 30 years. He denies any history of COPD and is not using oxygen at home. Patient is not taking any prescribed medications at home and his states that there are no major underlying health conditions. Patient denies any drug use or alcohol use. admission showed white count of 6.6, platelet 133, d-dimer 5.39, sodium 134, glucose 162, ast 72, troponin negative. LDH is 1236 and his CRP is 21.3. Chest x-ray on admission shows patchy bilateral interstitial pneumonia. Chest CTA shows no evidence of pulmonary embolism. Bilateral interstitial and airspace pneumonia. Mediastinal and bronchial lymph nodes consistent with inflammatory disease. Vitals show a temperature of 100.5 on admission, normal sinus rhythm in the 80s, respiratory rate in the 20s, blood pressure 124/84, he is 94% on 5 L nasal cannula. Patient to receive an infusion of Bamlanivimab in the [facility]. He also received a 1.3 with a bolus. Patient was started on IV Decadron, zinc, Covid vitamins, Lovenox for prophylaxis. We did consult pulmonary due to the hypoxia. 09/25/2021 Patient is evaluated today resting that. He is on a 15 L high flow cannula as well as a 15 L nonrebreather. Patient is a slightly having some shortness of breath and difficulty taking a deep breath. He is currently denying any chest pain, chest pressure, nausea vomiting or diarrhea. He does have pain with deep inspiration and expiration. Patient is being followed closely by pulmonary services. Labs today show white count 10.9, d-dimer of 2 today, LDH 1677 and CRP of 3. Metabolic panel pending from today. Patient's oxygen saturation is 97% on 15 L; pulse of 89 and temperature 90.7 0.90FNC, blood pressure stable at 134/72. 09/26/2021 Patient is seen and evaluated and discussed with nursing staff; patient remains on oxygen via HFNC and nonrebreather mask; continues to require 15 L of oxygen Vital signs are reviewed temperature 97.7, pulse 87, respiration 24 blood pressure 142/76 with O2 saturation 94% White count 7.6, he will 15.4, hematocrit 44.5, and platelet count 305,000. D- dimer is 2.69. Sodium 136, potassium 4.3, chlorides 103, CO2 26, anion gap 7, BUN 23, and creatinine 0.65. LDH is 1579. C-reactive protein is 4. Chest x- ray continues to show diffuse bilateral infiltrates, with no significant change from prior x-rays. Patient remains on Decadron, Lovenox, vitamin C, vitamin D and zinc sulfate along with KATHY; patient is making slow progress with oxygen saturation improving slowly 09/27/2021 Patient is seen and evaluated in follow-up; currently on 10 L high flow nasal cannula oxygen; not using nonrebreather mask anymore; keeping O2 saturation greater than 92% Vital signs review show temperature 97.8, pulse 82, respiration 20 and blood pressure 132/87 Labs today include a white count 9.3, hemoglobin 15.6, hematocrit 44.3, and a platelet count 344,000. Sodium 135, potassium 4.1, chlorides 104, CO2 25, anion gap 6, BUN 20, creatinine 0.66. Calcium 8.2. AST 69 with an ALT 166. The chest x-ray from yesterday showed bilateral low lung volumes, and diffuse bilateral infiltrates. Remains on usual medications including Decadron, Lovenox, vitamin C, vitamin D3, zinc, and KATHY. Self-proning is encouraged 09/28/2021 Patient is seen in follow-up this morning and being followed closely by pulmonary. Patient discontinued on 10 L high flow and weaning as tolerated. Patient continues with Covid vitamins along with IV dexamethasone and baricitinib and will continue. Patient has incentive spirometer at the bedside and encourage the patient to use at least 10 times every hour while awake. Continue to monitor blood sugars closely. Patient denies chest pain or palpitations. Patient is afebrile. 09/29/2021 Patient seen today and currently maintained on 8-9 L high flow and weaning as tolerated. Patient denies any worsening shortness of breath and is tolerating the weaning at this time. Pulmonary is following closely and patient is maintained on Baracitinib. 09/30/2021 Patient is seen this morning and weaning FI02 as tolerated. Patient is currently sitting up in the chair and states he is feeling slightly better. Patient is currently maintained on 8L HF NC. Pulmonary following and patient continues on Baricitinib, lovenox and vitamin supplements along with IV dexamethasone. Patient denies any worsening shortness of breath. 10/01/2021 Patient is seen and evaluated this morning and continues to wean FI02 as tolerated. Patient is currently on 6L HF and continues to wean. Pulmonary follow and continued on Baricitinib along with lovenox, zinc, vitamin supplements and IV dexamethasone and will continue. Patient reports he feels to be continuously improving and anxious to go home. Labs within normal limits today. Review of systems: Constitutional: No reports of fatigue, fever, or chills Cardiovascular: No reports of chest pain or palpitations Respiratory: reports of shortness of breath, reports feeling less short of breath today and improving daily GI: No reports of nausea, vomiting, or diarrhea : No reports of dysuria or retention Neurovascular: No reports of weakness or numbness All medications have been reviewed Active Medications Acetaminophen (Acetaminophen Tab 325 Mg Tab) 650 mg PO Q6HR PRN PRN Reason: Mild Pain or Fever > 100.5 Albuterol Sulfate (Albuterol Hfa Inhaler) 2 puff INHALATION RT-QID PRN PRN Reason: Shortness Of Breath Or Wheezing Last Admin: 09/23/21 03:32 Dose: 2 puff Documented by: Albuterol Sulfate (Albuterol Hfa Inhaler) 2 puff INHALATION RT-QID [facility] Last Admin: 10/01/21 21:25 Dose: 2 puff Documented by: Ascorbic Acid (Ascorbic Acid 500 Mg Tab) 1,000 mg PO DAILY [facility] Last Admin: 10/01/21 09:04 Dose: 1,000 mg Documented by: Baricitinib (Baricitinib 2 Mg Tablet) 4 mg PO DAILY [facility] Stop: 10/06/21 09:01 Last Admin: 10/01/21 09:13 Dose: 4 mg Documented by: Benzocaine/Menthol (Benzocaine/Menthol Lozeng 1 Each Lozenge) 1 each MUCOUS MEM Q4HR PRN PRN Reason: Cough Last Admin: 10/01/21 00:08 Dose: 1 each Documented by: Calcium Carbonate/Glycine (Calcium Carbonate 500 Mg Chewable) 500 mg PO TID PRN PRN Reason: Heartburn Cholecalciferol (Cholecalciferol 25 Mcg (1000 Iu) Tablet) 50 mcg PO DAILY [facility] Last Admin: 10/01/21 09:05 Dose: 50 mcg Documented by: Dexamethasone Sodium Phosphate (Dexamethasone Sod Phosphate 10 Mg/Ml 1 Ml Vial) 6 mg IVP DAILY [facility] Last Admin: 10/01/21 09:05 Dose: 6 mg Documented by: Enoxaparin Sodium (Enoxaparin 40 Mg/0.4 Ml Syringe) 40 mg SQ DAILY [facility] Last Admin: 10/01/21 09:04 Dose: 40 mg Documented by: Sodium Chloride (Saline 0.9%) 1,000 mls @ 10 mls/hr IV .Q24H [facility] Last Admin: 10/01/21 23:28 Dose: Not Given Documented by: Insulin Aspart (Insulin Aspart (Novolog) 100 Unit/Ml Vial) 0 unit SQ ACHS [facility]; Protocol Last Admin: 10/01/21 20:33 Dose: 1 unit Documented by: Naloxone HCl (Naloxone 0.4 Mg/Ml 1 Ml Vial) 0.2 mg IV Q2M PRN PRN Reason: Opioid Reversal Ondansetron HCl (Ondansetron 4 Mg/2 Ml Vial) 4 mg IVP Q6HR PRN PRN Reason: Nausea And Vomiting Pantoprazole Sodium (Pantoprazole 40 Mg Tablet) 40 mg PO AC-BID [facility] Last Admin: 10/01/21 16:54 Dose: 40 mg Documented by: Sodium Chloride (Sodium Chloride 0.65% Nasal [place] 44 Ml Btl) 2 spray NASAL QID PRN PRN Reason: Congestion Last Admin: 09/27/21 03:47 Dose: 2 spray Documented by: Zinc Sulfate (Zinc Sulfate 220 Mg Cap) 220 mg PO DAILY [facility] Last Admin: 10/01/21 09:05 Dose: 220 mg Documented by: Physical exam: GENERAL: The patient is alert and oriented x3, Well developed, well nourished. Currently on 6 L high flow and titrating down HEENT: Pupils are round and equally reacting to light. EOMI. No scleral icterus. No conjunctival pallor. Normocephalic, atraumatic. No pharyngeal erythema. No th yromegaly. CARDIOVASCULAR: S1 and S2 present. No murmurs, rubs, or gallops. PULMONARY: Diminished breath sounds bilaterally with some coarse rhonchi noted throughout ABDOMEN: Soft, nontender, nondistended, normoactive bowel sounds. No palpable organomegaly. MUSCULOSKELETAL: No joint swelling or deformity. EXTREMITIES: No cyanosis, clubbing, or pedal edema. NEUROLOGICAL: Gross neurological examination did not reveal any focal deficits. SKIN: No rashes. Assessment: Acute hypoxic respiratory failure secondary to COVID-19 pneumonia Elevated d dimer, CTA negative for pulmonary embolism Hyponatremia secondary to poor oral intake and dehydration, improved Fever secondary to COVID pneumonia, improved Elevated LDH, CRP secondary to inflammation from COVID infection Hyperglycemia, A1C 6.5, patient is most likely a type 2 diabetic, continue with sliding scale Elevated liver enzymes, monitor History of nicotine dependence - 25 to 30 year pack history History of kidney stones GI Prophylaxis: Protonix DVT Prophylaxis: Lovenox Full Code Plan: Patient is maintained on IV dexamethasone along with vitamin and zinc supplements and will continue. Patient continues on Baricitinib with pulmonary following. Patient currently titrating FiO2 as tolerated and maintaining oxygen saturations above 90% on 6 L high flow nasal cannula. Continue to encourage incentive spirometer use at least 10 times every hour while awake and wean FiO2 as tolerated. Encouraged increased activity as tolerated. Recommend continue with Accu-Cheks and close monitoring of blood sugars and will continue sliding scale. Labs ordered for am. Will discuss with case management about diabetic supplies and home 02 and if can maintain adequate oxygen saturations above 90% on 5L or less, then may possibly be discharged. Will continue to monitor closely. Possible discharge in 24-48 hours. Objective - Vital Signs Vital signs: Vital Signs Temp 98.2 F 10/01/21 04:00 Pulse 72 10/01/21 04:00 Resp 16 10/01/21 04:00 BP 127/74 10/01/21 04:00 Pulse Ox 92 L 10/01/21 04:00 Intake & Output 09/30/21 10/01/21 10/01/21 18:59 06:59 18:59 Intake Total 598 480 Output Total 1000 Balance -402 480 Weight 118 kg Intake: Oral 598 480 Output: Urine 1000 Other: Voiding Method Urinal # Bowel Movements 1 - Labs CBC & Chem 7: 10/01/21 06:47 10/01/21 06:41 Labs: Abnormal Lab Results - Last 24 Hours (Table) 09/30/21 09/30/21 09/30/21 Range/Units 07:49 12:00 16:42 Plt Count (150-450) k/uL Neutrophils # (1.3-7.7) k/uL Sodium (137-145) mmol/L Carbon Dioxide 31 H (22-30) mmol/L BUN (9-20) mg/dL POC Glucose (mg/dL) 166 H 159 H (75-99) mg/dL ALT 128 H (4-49) U/L Total Protein (6.3-8.2) g/dL Albumin 3.3 L (3.5-5.0) g/dL 09/30/21 10/01/21 10/01/21 Range/Units 20:55 06:41 06:47 Plt Count 476 H (150-450) k/uL Neutrophils # 7.8 H (1.3-7.7) k/uL Sodium 136 L (137-145) mmol/L Carbon Dioxide 32 H (22-30) mmol/L BUN 21 H (9-20) mg/dL POC Glucose (mg/dL) 213 H (75-99) mg/dL ALT 127 H (4-49) U/L Total Protein 5.9 L (6.3-8.2) g/dL Albumin 3.1 L (3.5-5.0) g/dL
[2021-10-02 06:10] LABS: Glucose,Whole Blood 133 mg/dL (75-99)
[2021-10-02] MEDS: PANTOPRAZOLE 40 MG TABLET PO SCH (06:29)
[2021-10-02] MEDS: INSULIN ASPART (NovoLOG) 100 UNIT/ML VIAL SQ SCH ×2 (06:30→11:51)
[2021-10-02] MEDS: ALBUTEROL HFA INHALER INHALATION SCH ×3 (08:58→16:17)
[2021-10-02] MEDS: ZINC SULFATE 220 MG CAP PO SCH (09:44)
[2021-10-02] MEDS: ASCORBIC ACID 500 MG TAB PO SCH (09:44)
[2021-10-02] MEDS: DEXAMETHASONE SOD PHOSPHATE 10 MG/ML 1 ML VIAL IVP SCH (09:44)
[2021-10-02] MEDS: ENOXAPARIN 40 MG/0.4 ML SYRINGE SQ SCH (09:44)
[2021-10-02] MEDS: BARICITINIB 2 MG TABLET PO SCH (09:45)
[2021-10-02] MEDS: CHOLECALCIFEROL 25 MCG (1000 IU) TABLET PO SCH (09:45)
[2021-10-02 10:05] LABS: African American GFR (CKD) >90 (>60 ml/min/1.73 sqM); Anion Gap 6 mmol/L; Blood Urea Nitrogen 27 mg/dL (9-20); Calcium 8.8 mg/dL (8.4-10.2); Carbon Dioxide 29 mmol/L (22-30); Chloride 99 mmol/L (98-107); Glucose 109 mg/dL (74-99); Non-African American GFR(CKD) >90 (>60 ml/min/1.73 sqM); Potassium 4.6 mmol/L (3.5-5.1); Sodium 134 mmol/L (137-145)
[2021-10-02 12:12] LABS: Glucose,Whole Blood 125 mg/dL (75-99)
[2021-10-02 13:13] VITALS: BP 117/77; PULSE 80; TEMP 98.5
--- NOTE | 2021-10-02 14:16 | XR ---
EXAMINATION TYPE: XR chest 1V portable DATE OF EXAM: 10/02/2021 CLINICAL HISTORY: Difficulty breathing progress study. TECHNIQUE: Single AP portable upright view of the chest is obtained. COMPARISON: Chest x-ray from September 26, 2021 FINDINGS: Persistent low lung volumes with bilateral multifocal predominantly lower lung opacities g reater on the left redemonstrated. Underlying scoliosis is present. Cardiac silhouette size stable an d within normal limits. IMPRESSION: Low lung volumes with left greater than right bilateral multifocal increased opacities co nsistent with covid-19 infection, no significant change from most recent x-ray.
--- NOTE | 2021-10-02 15:46 | P.PN ---
Subjective Progress Note Date: 10/02/21 61-year-old male patient admitted on 09/22/2021 for COVID-19 related pneumonia. 10/02/2021, the patient is doing well. The patient and associated progressive improvement in the oxygenation currently is down to 40s about 2 by nasal cannula. Pulse ox remains above 90%. Doing well. No specific complaints. A repeat chest x-ray shows further clearing of the right lower lobe pulmonary infiltration. There is persistent infiltration of the left system with coronary related pneumonia. The patient was treated with accommodation Decadron and Baricitinib. The patient was also anticoagulated with Lovenox. In terms of his blood work, his renal function is stable. Electrodes are all within normal limits. No other significant abnormalities have been noted. The patient is doing well. The patient is thinking that he may be able to get discharged home on home O2. Objective - Vital Signs Vital signs: Vital Signs Temp 98.5 F 10/02/21 12:00 Pulse 80 10/02/21 14:00 Resp 18 10/02/21 14:00 BP 117/77 10/02/21 12:00 Pulse Ox 92 L 10/02/21 12:00 Intake & Output 10/01/21 10/02/21 10/02/21 18:59 06:59 18:59 Intake Total 1140 240 Output Total 1200 1 Balance -60 239 Weight 116 kg Intake: Oral 1140 240 Output: Urine 1200 Urine/Stool Mix 1 Other: Voiding Method Urinal Urinal # Voids 1 # Bowel Movements 0 - Exam Mild conversational dyspnea. Oriented 3. The patient's currently on 4 L of oxygen by nasal cannula HEENT examination is grossly unremarkable. Neck supple. Full range of motion. No adenopathy thyromegaly or neck vein distention. Cardiovascular examination reveals regular rhythm rate. S1-S2 normal. No S3 or S4. No discernible murmur noted. Lungs reveal coarse bilateral rhonchi. Bibasilar crackles. Breath sounds equal bilaterally. No wheezes. Breath sounds are generally a bit improved. Abdomen soft bowel sounds are heard. No masses or tenderness. Extremities are intact. No cyanosis clubbing or edema. Skin is without rash or lesion. Neurologic examination is brief but nonfocal. - Labs CBC & Chem 7: 10/01/21 06:47 10/02/21 09:13 Labs: Abnormal Lab Results - Last 24 Hours (Table) 12/02/21 12/02/21 12/03/21 Range/Units 16:24 20:10 06:09 Sodium (137-145) mmol/L BUN (9-20) mg/dL Glucose (74-99) mg/dL POC Glucose (mg/dL) 174 H 155 H 133 H (75-99) mg/dL 10/02/21 10/02/21 Range/Units 09:13 11:50 Sodium 134 L (137-145) mmol/L BUN 27 H (9-20) mg/dL Glucose 109 H (74-99) mg/dL POC Glucose (mg/dL) 125 H (75-99) mg/dL Assessment and Plan Plan: 1 Acute hypoxemic respiratory failure secondary to coronavirus associated pneumonia. Note that the patient had a CTA at the time of the admission and showed bilateral pneumonia and there was No evidence of pulmonary embolism on CT angiogram. Currently on 4 L of oxygen by nasal cannula. The patient was treated with a combination of Decadron and Baricitinib. She is clinically improving and oxygenation is improved slightly and currently is down to 4 L. Also, all of the extremity markers are improving. Patient has no other specific complaints. On today's evaluation, he is feeling much better. His breathing is nonlabored and he thinks he should be able to go home today. 2 History of degenerative disc disease. 3 History of kidney stones. 4 History of sleep apnea syndrome. 5 Obesity Plan Discharge home with home O2 Arrange oxygen concentrator and portable tanks Continue Lovenox 40 mg subcu for DVT prophylaxis IV fluids to KVO Advance activity as tolerated Wean down the FiO2 as tolerated to maintain a saturation above 90% Resume all medication and the patient will complete a course of Decadron outpatient basis for another week and a dose of 4 mg and the patient will be seen in the office in a few weeks time in follow-up.
--- NOTE | 2021-10-03 11:30 | P.DS ---
Providers Date of admission: 09/22/21 00:37 Expected date of discharge: 10/02/21 Attending physician: Louise Schultz Consults: 09/22/21 10:19 Consult Physician Routine Consulting Provider: Aneudy Pelletier Consult Reason/Comments: COVID +, hypoxia Do you want consulting provider notified?: Yes Primary care physician: Jacy Farah Hospital Course: Final Diagnosis Acute hypoxic respiratory failure secondary to COVID-19 pneumonia Elevated d dimer, CTA negative for pulmonary embolism Hyponatremia secondary to poor oral intake and dehydration, improved Fever secondary to COVID pneumonia, improved Elevated LDH, CRP secondary to inflammation from COVID infection Hyperglycemia, A1C 6.5, patient is most likely a type 2 diabetic, will need outpatient follow up after steroids Elevated liver enzymes, monitor History of nicotine dependence - 25 to 30 year pack history History of kidney stones GI Prophylaxis DVT Prophylaxis Full Code Discharge disposition Patient is being discharged in a stable condition with guarded prognosis to home. Patient will follow-up with Dr. Farah in the outpatient setting upon discharge. Patient is to continue with vitamin and zinc supplements along with dexamethasone 4mg daily for 5 days. Patient will also follow up with pulmonary in the outpatient setting. Total time taken is greater than 35 minutes. Hospital course 61-year-old male who follows with Dr. Farah. He presents to the [facility] after having symptoms of shortness of breath, cough, fever, body aches and chills since last Tuesday. He has been getting significantly worse since, and became hypoxic with a pulse ox in the 80s on room air at home. He tested positive for COVID on the 09/17/21. Patient did receive his first dose of Moderna vaccination on September 07. Patient and at the bedside denying any other positive Covid in the family. Patient's past medical history significant for hernia disc, kidney stones, questionable sleep apnea, prediabetic. Patient is a former smoker, he quit smoking in 2007 and smoked 1 pack per day or less for 25- 30 years. He denies any history of COPD and is not using oxygen at home. Patient is not taking any prescribed medications at home and his states that there are no major underlying health conditions. Patient denies any drug use or alcohol use. admission showed white count of 6.6, platelet 133, d-dimer 5.39, sodium 134, glucose 162, ast 72, troponin negative. LDH is 1236 and his CRP is 21.3. Chest x-ray on admission shows patchy bilateral interstitial pneumonia. Chest CTA shows no evidence of pulmonary embolism. Bilateral interstitial and airspace pneumonia. Mediastinal and bronchial lymph nodes consistent with inflammatory disease. Vitals show a temperature of 100.5 on admission, normal sinus rhythm in the 80s, respiratory rate in the 20s, blood pressure 124/84, he is 94% on 5 L nasal cannula. Patient to receive an infusion of Bamlanivimab in the [facility]. He also received a 1.3 with a bolus. Patient was started on IV Decadron, zinc, Covid vitamins, Lovenox for prophylaxis. We did consult pulmonary due to the hypoxia. 09/25/2021 Patient is evaluated today resting that. He is on a 15 L high flow cannula as well as a 15 L nonrebreather. Patient is a slightly having some shortness of breath and difficulty taking a deep breath. He is currently denying any chest pain, chest pressure, nausea vomiting or diarrhea. He does have pain with deep inspiration and expiration. Patient is being followed closely by pulmonary services. Labs today show white count 10.9, d-dimer of 2 today, LDH 1677 and CRP of 3. Metabolic panel pending from today. Patient's oxygen saturation is 97% on 15 L; pulse of 89 and temperature 90.7 0.90FNC, blood pressure stable at 134/72. 09/26/2021 Patient is seen and evaluated and discussed with nursing staff; patient remains on oxygen via HFNC and nonrebreather mask; continues to require 15 L of oxygen Vital signs are reviewed temperature 97.7, pulse 87, respiration 24 blood pressure 142/76 with O2 saturation 94% White count 7.6, he will 15.4, hematocrit 44.5, and platelet count 305,000. D- dimer is 2.69. Sodium 136, potassium 4.3, chlorides 103, CO2 26, anion gap 7, BUN 23, and creatinine 0.65. LDH is 1579. C-reactive protein is 4. Chest x- ray continues to show diffuse bilateral infiltrates, with no significant change from prior x-rays. Patient remains on Decadron, Lovenox, vitamin C, vitamin D and zinc sulfate along with KATHY; patient is making slow progress with oxygen saturation improving slowly. 10/02/2021 Patient is seen this morning and maintained on Baricitinib along with other covid supplements and steroids and has been maintaining oxygen above 90% on 4L via NC and 02 has been arranged for discharge. Patient has been evaluated by pulmonary and will continue on 5 days of dexamethasone on discharge. Encouraged IS use and close outpatient follow up with pulmonary. Currently no reports of chest pain, palpitations or worsening shortness of breath. Patient is afebrile. No reports of nausea or vomiting and tolerating diet. Patient will be discharged today. Guarded prognosis. Physical exam: GENERAL: The patient is alert and oriented x3, Well developed, well nourished. Currently on 4 L NC HEENT: Pupils are round and equally reacting to light. EOMI. No scleral icterus. No conjunctival pallor. Normocephalic, atraumatic. No pharyngeal erythema. No thyromegaly. CARDIOVASCULAR: S1 and S2 present. No murmurs, rubs, or gallops. PULMONARY: Diminished breath sounds bilaterally with some coarse rhonchi noted throughout ABDOMEN: Soft, nontender, nondistended, normoactive bowel sounds. No palpable organomegaly. MUSCULOSKELETAL: No joint swelling or deformity. EXTREMITIES: No cyanosis, clubbing, or pedal edema. NEUROLOGICAL: Gross neurological examination did not reveal any focal deficits. SKIN: No rashes. Please refer to medication reconciliation sheet for a list of medications. Patient Condition at Discharge: Fair Plan - Discharge Summary Discharge Rx Participant: No New Discharge Prescriptions: New Benzocaine/Menthol Lozeng [Cepacol lozenge] 1 each MUCOUS MEM Q4HR PRN #20 lozenge PRN Reason: Cough Zinc Sulfate [Orazinc] 220 mg PO DAILY 30 Days #30 cap Acetaminophen Tab [Tylenol] 650 mg PO Q6HR PRN tab PRN Reason: Mild Pain Or Fever > 100.5 Dexamethasone [Decadron] 4 mg PO DAILY 5 Days #5 tablet Albuterol Inhaler [Ventolin Hfa Inhaler] 2 puff INHALATION RT-QID 30 Days #1 gm Albuterol Inhaler [Ventolin Hfa Inhaler] 2 puff INHALATION RT-QID PRN gm PRN Reason: Shortness Of Breath Or Wheezing Ascorbic Acid [Vitamin C] 1,000 mg PO DAILY 30 Days #60 tab Cholecalciferol [Vitamin D3 (25 Mcg = 1000 Iu)] 50 mcg PO DAILY 30 Days #60 tablet Discharge Medication List Acetaminophen Tab [Tylenol] 650 mg PO Q6HR PRN tab 10/02/21 [Rx] Albuterol Inhaler [Ventolin Hfa Inhaler] 2 puff INHALATION RT-QID 30 Days #1 gm 10/02/21 [Rx] Albuterol Inhaler [Ventolin Hfa Inhaler] 2 puff INHALATION RT-QID PRN gm 10/02/21 [Rx] Ascorbic Acid [Vitamin C] 1,000 mg PO DAILY 30 Days #60 tab 10/02/21 [Rx] Benzocaine/Menthol Lozeng [Cepacol lozenge] 1 each MUCOUS MEM Q4HR PRN #20 lozenge 10/02/21 [Rx] Cholecalciferol [Vitamin D3 (25 Mcg = 1000 Iu)] 50 mcg PO DAILY 30 Days #60 tablet 10/02/21 [Rx] Dexamethasone [Decadron] 4 mg PO DAILY 5 Days #5 tablet 10/02/21 [Rx] Zinc Sulfate [Orazinc] 220 mg PO DAILY 30 Days #30 cap 10/02/21 [Rx] Follow up Appointment(s)/Referral(s): Jacy Farah III, MD [Primary Care Provider] - 10/05/21 8:00 am (Phone call appointment from your car. Call office when you arrive in the parking lot. ) Azra Almonte MD [STAFF PHYSICIAN] - 11/03/21 2:00 pm Patient Instructions/Handouts: Coronavirus Disease 2019 (COVID-19) Activity/Diet/Wound Care/Special Instructions: Pulmonary and Dr. Alfaro to evaluate prior to discharge Patient to contact [facility] to deliver home oxygen concentrator and supplies (portable tanks will be in patient room prior to discharge) - [phone] Activity Limited until follow-up Follow-up with primary care provider on discharge Continue with oxygen and monitor pulse ox readings for pulmonary follow-up Obtain pulse oximeter Continue medications as prescribed Follow-up with pulmonary outpatient Follow consistent carb heart healthy diet Continue incentive spirometer at least 10 times every hour while awake Encourage fluids and rest Discharge Disposition: HOME SELF-CARE
== END 2021-10-02 17:14 | disposition home or self-care (01) | DRG 177 ==
LOC: EC 20:04 → 4SSUR 09-22 00:37 → 1SOBS 09-22 19:39 → 3SCARD 09-23 13:43
PROVIDERS: ADMIT Hospitalist; ATTEND Hospitalist
PROC: XW033F6 Introduction of Bamlanivimab Monoclonal Antibody into Peripheral Vein, Percutaneous Approach, New Technology Group 6 (ICD-10-PCS; principal; 2021-09-21)
PROC: 5A0955A Assistance with Respiratory Ventilation, Greater than 96 Consecutive Hours, High Flow/Velocity Cannula (ICD-10-PCS; 2021-09-22)
DX: U07.1 COVID-19 (principal); J12.82 Pneumonia due to coronavirus disease 2019; J96.01 Acute respiratory failure with hypoxia; E87.1 Hypo-osmolality and hyponatremia; E11.65 Type 2 diabetes mellitus with hyperglycemia; E66.9 Obesity, unspecified; Z68.32 Body mass index [BMI] 32.0-32.9, adult; E86.0 Dehydration; R94.5 Abnormal results of liver function studies; T38.0X5A Adverse effect of glucocorticoids and synthetic analogues, initial encounter; R79.1 Abnormal coagulation profile; Z79.01 Long term (current) use of anticoagulants; Z80.1 Family history of malignant neoplasm of trachea, bronchus and lung; Z87.442 Personal history of urinary calculi; Z87.891 Personal history of nicotine dependence; Z90.49 Acquired absence of other specified parts of digestive tract; Z98.890 Other specified postprocedural states
CPT/HCPCS: 36415; 71045; 71046; 71275; 80048; 80053; 83036; 83605; 83615; 83735; 84145; 84295; 84484; 85025; 85379; 85610; 85730; 86140; 93005; 94640; 94667; 94760; 96374; 99285

== ENCOUNTER → 2022-02-16 | Outpatient (CLI) | payer BC ==
--- NOTE | 2022-02-16 11:30 | NM ---
EXAMINATION TYPE: NM stress cardiolite complete DATE OF EXAM: 02/16/2022 COMPARISON: NONE HISTORY: TECHNIQUE: After the intravenous administration of 9.58 mCi Tc 99m Sestamibi - Rest images obtained 45 minutes post injection. The patient exercised using a SHEA protocol and 1 minute prior to peak exercise was injected with 25.3 mCi Tc 99m Sestamibi - Stress images obtained 5 minutes post injectio n. FINDINGS: Targeted heart rate was achieved during performance of the study. Review of stress and rest SPECT robert ges demonstrates no distinct perfusion abnormality. Gated analysis shows normal wall motion with an estimated left ventricular ejection fraction of 66 %. IMPRESSION: No scintigraphic evidence for reversible ischemia
--- NOTE | 2022-02-16 12:46 | P.STRESS ---
- Stress Test Note Stress Test Results/Findings: Exam Performed: NM stress cardiolite complete Exam Date: 02/16/22 Reason for Exam: CHEST DISCOMFORT Height: 6 ft 2 in Weight: 118.2 kg Protocol: CARDIOLITE SHEA Stage: 2 Duration of Exercise: 6:00 Resting Heart Rate: 87 Resting Blood Pressure: 147/99 Maximum Achieved Heart Rate: 145 Maximum Achieved Blood Pressure: 198/84 85% PMHR: 137 100% PMHR: 161 METS: 7.1 Technologist Comment: Stress Test Results/Findings: This is a 61-year-old gentleman with history of diabetes, hypercholesteremia, and family history being evaluated for symptoms of chest pain. Patient also is a smoker. Stress data: Baseline EKG showed sinus rhythm with normal OR interval and QRS duration. Blood pressure at rest is 147/99 with a pulse rate of 84. Patient walked on the Shea protocol for 6 minutes achieving a maximal rate of 145 with a blood pressure 198/84. EKGs taken during and after exercise did not reveal reveal any significant changes of ischemia. Patient did not express any chest pain. Final impression:. #1. Negative stress test #2. Patient did not experience any chest pain. #3. Occasional PVCs #4. Report on the nectar images to be provided by the radiologist
--- NOTE | 2022-02-17 08:47 | EST ---
Stress Test Results/Findings: Exam Performed: NM stress cardiolite complete Exam Date: 02/16/22 Reason for Exam: CHEST DISCOMFORT Height: 6 ft 2 in Weight: 118.2 kg Protocol: CARDIOLITE SHEA Stage: 2 Duration of Exercise: 6:00 Resting Heart Rate: 87 Resting Blood Pressure: 147/99 Maximum Achieved Heart Rate: 145 Maximum Achieved Blood Pressure: 198/84 85% PMHR: 137 100% PMHR: 161 METS: 7.1 Technologist Comment: Stress Test Results/Findings: This is a 61-year-old gentleman with history of diabetes, hypercholesteremia, and family history being evaluated for symptoms of chest pain. Patient also is a smoker. Stress data: Baseline EKG showed sinus rhythm with normal MO interval and QRS duration. Blood pressure at rest is 147/99 with a pulse rate of 84. Patient walked on the Shea protocol for 6 minutes achieving a maximal rate of 145 with a blood pressure 198/84. EKGs taken during and after exercise did not reveal reveal any significant changes of ischemia. Patient did not express any chest pain. Final impression:. #1. Negative stress test #2. Patient did not experience any chest pain. #3. Occasional PVCs #4. Report on the nectar images to be provided by the radiologist ALEXANDRA
== END | disposition home or self-care (01) ==
LOC: RADNMMAIN 07:35
PROVIDERS: ATTEND Family Medicine
DX: I49.3 Ventricular premature depolarization (principal); E11.9 Type 2 diabetes mellitus without complications
CPT/HCPCS: 93017; 78452; A9500